=== PATIENT | female | born 1965 | race Caucasian/White ===

== ENCOUNTER 2017-01-13 20:35 | Emergency (ER) | payer OTHER ==
[~2017-01-13] VITALS: Ht 154.9 cm; Wt 46.7 kg
[~2017-01-13 20:35] MED LIST: ALBU17AE23; ALPR1T; ASPI1TAB; CTLP20T; HYDR1CAP2; NF-ESOM40C
[2017-01-13] MEDS ORDERED: PRD10T (20:49)
[2017-01-13] MEDS ORDERED: GENT5DRO30 (20:49)
[2017-01-13] MEDS ORDERED: NITR100C (20:49)
[2017-01-13] MEDS ORDERED: TOPI200T8 (20:49)
[2017-01-13] MEDS ORDERED: GABA-486 (20:49)
[2017-01-13] MEDS ORDERED: AMOX1TAB12 (20:49)
[2017-01-13] MEDS ORDERED: BSS 15 ML ONE (20:57)
[2017-01-13] MEDS ORDERED: FLUORESCEIN (FLUOR-I-STRIPS) 1 MG STRP ONE (20:57)
[2017-01-13] MEDS ORDERED: TETRACAINE 0.5% OPHTH SOLN 4 ML BTL (SINGLE DOSE ONLY) ONE (20:57)
[2017-01-13] MEDS ORDERED: CEFD300C3 PO (21:14)
[2017-01-13] MEDS ORDERED: LORA1TAB59 PO (21:14)
[2017-01-13] MEDS ORDERED: FLUT9.9S NS (21:14)
[2017-01-13] MEDS ORDERED: prednisoLONE 1% OPTH (PRED FORTE) 5 ML BTL OU SCH (21:15)
[2017-01-13] MEDS ORDERED: RX-TOBRA/DEXAMETH (TOBRADEX) OP. SUSP 2.5 ML BTL ONE (21:16)
--- NOTE | 2017-01-13 21:16 | ED EENT ---
History of Present Illness General Chief Complaint: Eye Problems Stated Complaint: VISION ISSUES Nursing Triage Note: eye pain/burning Source: patient History of Present Illness Time seen by provider: 20:49 Initial Comments C/O RIGHT EYE PAIN X 1 1/2 WEEKS STARTED OFF MILD IRRITATION, ITCHING AND WATERING THEN BEGAN TO HAVE REDNESS AND COLORED DRAINAGE AND MATTING OF EYE NOW IS STARTING TO HAVE SAME SYMPTOMS IN LEFT EYE GRANDSON HAS HAD PINKEYE--HIS SYMPTOMS HAVE RESOLVED WITH TOBRAMYCIN PT ALSO HAS HAD ONGOING ISSUES WITH A SINUS INFECTION FOR OVER A MONTH WAS TREATED WITH AUGMENTIN AND A STEROID SHOT ON 12/13 BY --NO IMPROVEMENT WAS SEEN AGAIN ON 01/[address] NAVA WAS GIVEN ANOTHER RX FOR AUGMENTIN, STEROID PILLS X 5 DAYS, AND RX FOR GENTAMICIN EYE DROPS PT STATES EYE PAIN IS GETTING WORSE--"CAN'T SEE" OUT OF HER RIGHT EYE DUE TO PAIN PT WEARS GLASSES LAST EYE EXAM WAS A FEW MONTHS AGO BY DR. MCNEILL NO IMPROVEMENT IN SINUS SYMPTOMS EITHER SHE IS NOT TAKING ANY OTHER MEDICATIONS FOR SINUSES PCP: DR. NAVA PARTICLEBOARD FACTORY WORKER: DR. MCNEILL Allergies and Home Medications Allergies Coded Allergies: Levofloxacin (Verified Allergy, Intermediate, RASH, 07/31/07) Nitrofurantoin (Unverified Allergy, Mild, 01/11/09) Sulfa (Sulfonamides) (Verified Allergy, Mild, 07/28/07) Adhesive (Verified Allergy, Unknown, 07/29/07) Iodine (Verified Allergy, Unknown, 07/29/07) Home Medications Albuterol 17 Gm Aerosol, (Reported) Amoxicillin/Potassium Clav 1 Each Tablet, (Reported) Aspirin/Acetaminophen/Caffeine 1 Each Tablet, (Reported) Cefdinir 300 Mg Capsule, 300 MG PO BID, #30 FOR INFECTION Prescribed by: INES MCBRIDE on 01/13/172113 Citalopram Hydrobromide 20 Mg Tablet, (Reported) Esomeprazole Mag Trihydrate 40 Mg Capsule., (Reported) Fluticasone Propionate 9.9 Ml [place].susp, 2 SPRAYS NS BID, #1 Prescribed by: INES MCBRIDE on 01/13/172113 Gabapentin 100 Mg Capsule, (Reported) Gentamicin Sulfate 5 Ml Drops, (Reported) Hydrocodone Bit/Acetaminophen 1 Cap Capsule, (Reported) Loratadine/Pseudoephedrine 1 Each Tab.er.12h, 1 EACH PO BID, #30 Prescribed by: INES MCBRIDE on 01/13/172113 Nitrofurantoin Macrocrystal 100 Mg Capsule, (Reported) Prednisone 10 Mg Tab, (Reported) Topiramate 200 Mg Tablet, (Reported) Review of Systems Constitutional: no symptoms reported, No fever Eyes: See HPI, Blurred Vision, Drainage, Decreased Acuity, Inflammation, Pain, Photophobia, Denies Contact Lenses, Glasses Ears: No Symptoms Reported Nose: see HPI, congestion, purulent discharge, other (SINUS PAIN ) Mouth: no symptoms reported Throat: no symptoms reported Respiratory: no symptoms reported Cardiovascular: no symptoms reported Gastrointestinal: no symptoms reported Musculoskeletal: no symptoms reported Skin: no symptoms reported Neurological: No Symptoms Reported, Denies Headache, Denies Numbness, Denies Paresthesia, Denies Tingling, Denies Weakness Hematologic/Lymphatic: No Symptoms Reported Immunological/Allergic: no symptoms reported Past Tvolorw-Oysrnm-Kpodxj Hx Patient Social History Alcohol Use: Denies Use Recreational Drug Use: No Smoking Status: Never a Smoker 2nd Hand Smoke Exposure: No Recent Foreign Travel: No Contact w/Someone Who Travel: No Recent Infectious Disease Expo: No Recent Hopitalizations: No Immunizations Up To Date Tetanus Booster (TDap): Unknown Seasonal Allergies Seasonal Allergies: No Surgeries History of Surgeries: Yes (spleenectomy, d&c) Surgeries: Appendectomy, Section, Gallbladder, Hysterectomy, Oophorectomy, Orthopedic Respiratory History of Respiratory Disorde: Yes Respiratory Disorders: Asthma Cardiovascular History of Cardiac Disorders: No Neurological History of Neurological Disord: Yes Neurological Disorders: Headaches /Migraines, Neuropathy Reproductive System : No Hx Reproductive Disorders: No Sexually Transmitted Disease: No 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 Genitourinary History of Genitourinary Disor: Yes Genitourinary Disorders: UTI-Chronic Gastrointestinal History of Gastrointestinal Di: No Musculoskeletal History of Musculoskeletal Dis: Yes Musculoskeletal Disorders: Arthritis Endocrine History of Endocrine Disorders: No HEENT History of HEENT Disorders: No Cancer History of Cancer: No Psychosocial History of Psychiatric Problem: Yes Behavioral Health Disorders: Anxiety Integumentary History of Skin or Integumenta: No Blood Transfusions History of Blood Disorders: Yes Physical Exam Vital Signs Vital Sign - Last 12Hours 01/13/17 20:49 Temp 97.3 Pulse 73 Resp 16 B/P (MAP) 116/65 (82) Pulse Ox 96 O2 Delivery Room Air General Appearance: thin, other (ANXIOUS, DRAMATIC, KEEPS EYES COVERED. REEKS OF CIGARETTES, DOES MALE WITH HER. ) Eyes: bilateral eye other (RIGHT CONJUNCTIVA VERY INFLAMED, NO DRAINAGE, NO SWELLING OR REDNESS TO LID. SLIGHT CONJUNCTIVAL INFLAMMATION ON LEFT WITH NO DRAINAGE OR LID SWELLING) Ears: bilateral ear TM normal Nose: sinus tenderness (RIGHT MAXILLARY), other (CONGESTION, CLEAR NASAL DRAINAGE) Mouth/Throat: normal mouth inspection, pharynx normal Neck: non-tender, full range of motion, supple, normal inspection, No lymphadenopathy (R), No lymphadenopathy (L) Cardiovascular: regular rate, rhythm, no murmur Respiratory: normal breath sounds Neurologic/Psychiatric: powder nipper II-XII nml as tested, no motor/sensory deficits, alert, oriented x 3 Skin: normal color, warm/dry Eye : Location: right eye Anesthesia (gtts): Tetracaine Progress/Procedure Conclusion FLUORESCEIN STAIN--NEGATIVE. NO ABRASION/DYE UPTAKE OR FOREIGN BODY NOTED. Progress/Results/Core Measures Results/Orders My Orders Orders - INES MCBRIDE DO Fluorescein Strips (Zactg-Z-Qbpmpi) (01/13/17 20:57) Tetracaine 0.5% Ophth Rochelle Sdv (Tetracai (01/13/17 20:57) Balanced Salt Irrigation Soln (Bss Irrig (01/13/17 20:57) Prednisolone 1% Ophthalmic Estella (Pred For (01/13/17 21:15) Tobra/Dexameth Ophth Ointment (Tobradex (01/14/17 09:00) Rx-Tobramycin/Dexam. (Rx-Tobradex Op Estella (01/13/17 21:16) Rx-Tobramycin/Dexam. (Rx-Tobradex Op Estella (01/13/17 21:18) Prednisolone 1% Ophthalmic Estella (Pred For (01/13/17 21:18) Medications Given in ED Current Medications Medications Dose Ordered Sig/Mor Route Start Time Stop Time Status Last Admin Dose Admin Balanced Salt Solution 15 ml STK-MED ONCE .ROUTE 01/13/17 20:57 01/13/17 20:59 DC 01/13/17 21:02 15 ML Fluorescein Sodium 1 mg STK-MED ONCE .ROUTE 01/13/17 20:57 01/13/17 20:59 DC 01/13/17 21:02 1 MG Tetracaine HCl 4 ml STK-MED ONCE .ROUTE 01/13/17 20:57 01/13/17 20:59 DC 01/13/17 21:02 4 ML Vital Signs/I&O Vital Sign - Last 12Hours 01/13/17 01/13/17 20:49 21:23 Temp 97.3 97.3 Pulse 73 73 Resp 16 16 B/P (MAP) 116/65 (82) Pulse Ox 96 96 O2 Delivery Room Air Blood Pressure Mean: 82 Progress Note : Progress Note IMMEDIATE RELIEF OF EYE PAIN AND DECREASED VISION, WITH TETRACAINE EYE EXAM--VISION 20/20 IN BOTH EYES WITH GLASSES. Departure Impression Impression: Primary Impression: Conjunctivitis Additional Impression: Sinusitis Disposition: 01 HOME, SELF-CARE Condition: Stable Departure-Patient Inst. Referrals: JORDAN NAVA MD (PCP) Primary Care Physician DELTA MCNEILL OD Patient Instructions: Conjunctivitis (Pinkeye) (DC), Sinusitis, Adult (DC), How to Use Eye Drops, How to Use Eye Ointment Add. Discharge Instructions: STOP AUGMENTIN STOP YOUR CURRENT EYE DROP START NEW EYE MEDICATION AND TAKE PRESCRIBED. CONTINUE PREDNISONE PRESCRIBED TYLENOL AND IBUPROFEN NEEDED FOR PAIN FOLLOW UP WITH DR. MCNEILL IN 2-3 DAYS FOR FURTHER CARE FOLLOW UP WITH DR. NAVA IN 4-5 DAYS FOR FURTHER CARE All discharge instructions reviewed with patient and/or family. Voiced understanding. Scripts Fluticasone Propionate (Flonase Allergy Relief) 9.9 Ml [place].susp 2 SPRAYS NS BID, #1 SPRAY Prov: INES MCBRIDE DO 01/13/17 Loratadine/Pseudoephedrine (Claritin-D 12 Hour Tablet) 1 Each Tab.er.12h 1 EACH PO BID for Congestion, #30 TAB Prov: INES MCBRIDE DO 01/13/17 Cefdinir (Cefdinir) 300 Mg Capsule 300 MG PO BID, #30 CAP FOR INFECTION Prov: INES MCBRIDE DO 01/13/17 INES MCBRIDE DO Jan 13, 2017 21:16
[2017-01-13] MEDS ORDERED: RX-TOBRA/DEXAMETH (TOBRADEX) OP. SUSP 2.5 ML BTL OP STA (21:18)
[2017-01-13] MEDS ORDERED: prednisoLONE 1% OPTH (PRED FORTE) 5 ML BTL ONE (21:18)
[2017-01-13 21:23] VITALS: BP 116/65
[2017-01-14] MEDS ORDERED: TOBRA/DEXAMETH (TOBRADEX) OPHTH OINT 3.5 GM TUBE OU SCH (09:00)
== END 2017-01-13 21:23 | disposition home or self-care (01) ==
LOC: EDUNIT# 20:35 → ER 20:37
DX: H10.9 Unspecified conjunctivitis (principal); J32.9 Chronic sinusitis, unspecified; J45.909 Unspecified asthma, uncomplicated; G43.909 Migraine, unspecified, not intractable, without status migrainosus; F41.9 Anxiety disorder, unspecified; Z87.440 Personal history of urinary (tract) infections; Z79.82 Long term (current) use of aspirin; Z90.49 Acquired absence of other specified parts of digestive tract; Z87.59 Personal history of other complications of pregnancy, childbirth and the puerperium; Z90.710 Acquired absence of both cervix and uterus
CPT/HCPCS: 99283

== ENCOUNTER → 2017-05-22 | Outpatient (CLI) | payer OTHER ==
[~2017-05-22] MED LIST changes: +AMOX1TAB12; +CEFD300C3 PO; +FLUT9.9S NS; +GABA-486; +GENT5DRO30; +LORA1TAB59 PO; +NITR100C; +PRD10T; +TOPI200T8
[2017-05-22 10:43] LABS: MEAN PLATELET VOLUME 11.4 FL (7.4-10.4); RED CELL DISTRIBUTION WIDTH 12.4 % (10.0-14.5); WHITE BLOOD COUNT 7.8 10^3/uL (4.3-11.0)
[2017-05-22 11:02] LABS: ALANINE AMINOTRANSFERASE 18 U/L (0-55); ALBUMIN 4.5 GM/DL (3.2-4.5); ALKALINE PHOSPHATASE 58 U/L (40-136); BILIRUBIN,TOTAL 0.3 MG/DL (0.1-1.0); BUN/CREATININE RATIO 26; CALCIUM 9.8 MG/DL (8.5-10.1); CARBON DIOXIDE 23 MMOL/L (21-32); CHLORIDE 107 MMOL/L (98-107); CREATININE SERUM 0.81 MG/DL (0.60-1.30); GFR ESTIMATED > 60; GLUCOSE 100 MG/DL (70-105); SODIUM 141 MMOL/L (135-145)
== END ==
LOC: LAB 10:27
PROVIDERS: ATTEND Psychiatry & Neurology Neurology
DX: G43.909 Migraine, unspecified, not intractable, without status migrainosus (principal)
CPT/HCPCS: 36415; 80053; 85027

== ENCOUNTER 2017-09-28 13:35 | Emergency (ER) | payer OTHER ==
[~2017-09-28] VITALS: Ht 154.9 cm; Wt 49.0 kg
--- OUTSIDE RECORDS SUMMARY | 2017-09-28 13:41 | XMS REPORT ---
Author Author YURIY SHAFFER Organization [facility] Address [address] [place] [address] Care Team Providers Care Supplier Development Manager Name Role Phone YURIY SHAFFER Unavailable PROBLEMS Type Condition ICD9-CM Code [id number] Code Onset Dates Condition Status SNOMED Code Problem Dysthymia F34.1 Active 48792174 Problem Arthritis M19.90 Active 0899735 Problem Bilateral carpal tunnel syndrome G56.03 Active 74968106 Problem Panic disorder with agoraphobia and panic attacks in partial remission F40.01 Active 44518217 Problem Gastroesophageal reflux disease, esophagitis presence not specified K21.9 Active 578499062 Problem Recurrent UTI N39.0 Active 389270109 ALLERGIES Substance Reaction Event Type Date Status sulfa drugs hives Drug Allergy Feb, Active Levaquin hives Drug Allergy Feb, Active Iodine rash Drug Allergy Feb, Active tape nausea Non Drug Allergy Feb, Active ENCOUNTERS Encounter Location Date Diagnosis [place] [address] [place] [address] Jul, [place] [address] [place] [id number] [place] [address] Jul, Arthritis M19.90 and Panic disorder with agoraphobia and panic attacks in partial remission F40.01 [facility] [address] [place] [id number] [place] [address]75[address] June, Arthritis M19.90 and Panic disorder with agoraphobia and panic attacks in partial remission F40.01 [place] [address] [place] [address] 6[address]75- 1639 May, [place] [address] [place] [id number] [place] [address] 74244[address] 5[address] May, Panic disorder with agoraphobia and panic attacks in partial remission F40.01 and Arthritis M19.90 [place] [address] [place] [id number] [place] [address] 83060- 4046 Apr, Panic disorder with agoraphobia and panic attacks in partial remission F40.01 and Arthritis M19.90 [facility] [address] [place] [id number] [place] [address] 85908- [address] Mar, [place] [address] 3019[address] Mar, Acute nasopharyngitis J00 [place] [address] [address] Mar, Panic disorder with agoraphobia and panic attacks in partial remission F40.01 and Arthritis M19.90 [place] [address] [place] [id number] [place] [address] 27572- 29[address] Feb, Arthritis M19.90 ; Panic disorder with agoraphobia and panic attacks in partial remission F40.01 ; Dysthymia F34.1 ; Gastroesophageal reflux disease, esophagitis presence not specified K21.9 ; Recurrent UTI N39.0 and Bilateral carpal tunnel syndrome G56.03 [place] [address] [place] [id number] [place] [address] 77484- 5359 Feb, [facility] [address] [place] [address] 46675- 5286 Feb, [facility] [address] [place] [address] Mar, Bug bite [id number] and Cellulitis L03.90 IMMUNIZATIONS No Known Immunizations SOCIAL HISTORY Never Assessed REASON FOR VISIT PMH obtained. Vane ROWE PLAN OF CARE VITAL SIGNS MEDICATIONS Medication Instructions Dosage Frequency Start Date End Date Duration Status Nexium 40 MG Orally Once a day 1 capsule 24h Active Xanax 1 MG Orally Once a day 1 tablet 24h Active Fish Oil 1200 MG Orally Once a day 1 capsule 24h Not-Taking Multivitamin Adults 50+ Not-Taking Celexa 20 mg Orally twice a day 1 tablet 12h Not-Taking Hydrocodone-Acetaminophen 7.5-325 MG Orally every 6 hrs 1 tablet as needed 6h Active Topamax 200 MG Orally Twice a day 1 tablet 12h Active Zofran 4 MG Orally PRN 1tablet Not-Taking RESULTS No Results PROCEDURES No Known procedures INSTRUCTIONS MEDICATIONS ADMINISTERED No Known Medications MEDICAL (GENERAL) HISTORY Type Description Date Medical History migraine headaches Medical History bipolar disorder Medical History acid reflux Medical History Chronic UTI Dr. Gonzalez Medical History asthma Surgical History section x 3 Surgical History orthopedic surgery Pen in right clavical, 1989 had bone removed from clavical Surgical History rectal and sphincter repair 1999 Surgical History hysterectomy 1989 Surgical History ruptured spleen 2009 Surgical History appendectomy Hospitalization History pneumonia Hospitalization History Surgery(s)/Childbirth(s)
--- OUTSIDE RECORDS SUMMARY | 2017-09-28 13:41 | XMS REPORT ---
Author Author YURIY SHAFFER Organization [facility] Address [address] [place] [address] Care Team Providers Care Wound/Ostomy Nurse Name Role Phone YURIY SHAFFER Unavailable PROBLEMS Type Condition ICD9-CM Code [id number] Code Onset Dates Condition Status SNOMED Code Problem Dysthymia F34.1 Active 63113829 Problem Arthritis M19.90 Active 8308600 Problem Bilateral carpal tunnel syndrome G56.03 Active 35883753 Problem Panic disorder with agoraphobia and panic attacks in partial remission F40.01 Active 34969718 Problem Gastroesophageal reflux disease, esophagitis presence not specified K21.9 Active 399028629 Problem Recurrent UTI N39.0 Active 253993481 ALLERGIES No Information ENCOUNTERS Encounter Location Date Diagnosis [place] [address] [place] [id number] [place] [address]61[address] Aug, [place] [address] [address] Jul, Arthritis M19.90 and Panic disorder with agoraphobia and panic attacks in partial remission F40.01 [place] [address] [place] [id number] [place] [address] 31108- 8411 June, Arthritis M19.90 and Panic disorder with agoraphobia and panic attacks in partial remission F40.01 [place] [address] [place] [id number] [place] [address] 62236- 3[address] May, [place] [address] [place] [id number] [place] [address] 26744- 0965 May, Panic disorder with agoraphobia and panic attacks in partial remission F40.01 and Arthritis M19.90 [place] [address] [place] [id number] [place] [address] 15243- 7565 Apr, Panic disorder with agoraphobia and panic attacks in partial remission F40.01 and Arthritis M19.90 [facility] [address] [place] [id number] [place] [address] 38239- 5699 Mar, [facility] [address] [place] [id number] [place] [address] 21146- 5628 Mar, Acute nasopharyngitis J00 [facility] [address] [address]- [address] Mar, Panic disorder with agoraphobia and panic attacks in partial remission F40.01 and Arthritis M19.90 [facility] [address] [address]- [address] Feb, Arthritis M19.90 ; Panic disorder with agoraphobia and panic attacks in partial remission F40.01 ; Dysthymia F34.1 ; Gastroesophageal reflux disease, esophagitis presence not specified K21.9 ; Recurrent UTI N39.0 and Bilateral carpal tunnel syndrome G56.03 [facility] [address] [place] [id number] [place] [address] 97745- 3524 Feb, [facility] [address] [place] [id number] [place] [address] 43794- 8344 Feb, [facility] [address] [place] [address]349 [address] Mar, Bug bite [id number].XXXA and Cellulitis L03.90 IMMUNIZATIONS No Known Immunizations SOCIAL HISTORY Never Assessed REASON FOR VISIT Rx request PLAN OF CARE VITAL SIGNS MEDICATIONS Unknown Medications RESULTS No Results PROCEDURES No Known procedures [...]
--- OUTSIDE RECORDS SUMMARY | 2017-09-28 13:41 | XMS REPORT ---
Author Author YURIY SHAFFER Organization [facility] Address [address] [place] [address] Care Team Providers Care Concrete Bucket Unloader Name Role Phone YURIY SHAFFER Unavailable PROBLEMS Type Condition ICD9-CM Code [id number] Code Onset Dates Condition Status SNOMED Code Problem Gastroesophageal reflux disease, esophagitis presence not specified K21.9 Active 716923591 Problem Recurrent UTI N39.0 Active 292924639 Problem Chronic pain due to trauma G89.21 Active 486858676 Problem Chronic migraine without aura without status migrainosus, not intractable G43.709 Active 224785516 Problem Dysthymia F34.1 Active 47238406 Problem Arthritis M19.90 Active 5151921 Problem Bilateral carpal tunnel syndrome G56.03 Active 52644091 Problem Panic disorder with agoraphobia and panic attacks in partial remission F40.01 Active 97166415 ALLERGIES No Information ENCOUNTERS Encounter Location Date Diagnosis [place] [address] [address] Aug, Acute non-recurrent maxillary sinusitis J01.00 [place] [address] [place] [id number] [place] [address]05- [address] Aug, Arthritis M19.90 [facility] [address] [place] [id number] [place] [address]27- [address] Aug, Arthritis M19.90 [place] [address] [place] [id number] [place] [address] 44974- 4700 Aug, [place] [address] [place] [id number] [place] [address] 68459- 2827 Aug, Chronic pain due to trauma G89.21 ; care home (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 analgesic Z79.891 ; Arthritis M19.90 ; Panic disorder with agoraphobia and panic attacks in partial remission F40.01 and Chronic migraine without aura without status migrainosus, not intractable G43.709 [place] [address] [place] [id number] [place] [address] 93556- 7739 Jul, Arthritis M19.90 and Panic disorder with agoraphobia and panic attacks in partial remission F40.01 [place] [address] 737[address]- [address] June, Arthritis M19.90 and Panic disorder with agoraphobia and panic attacks in partial remission F40.01 [place] [address] [address]- [address] May, [place] [address] 41335- [address]70 May, Panic disorder with agoraphobia and panic attacks in partial remission F40.01 and Arthritis M19.90 [place] [address] 049[address]- [address] Apr, Panic disorder with agoraphobia and panic attacks in partial remission F40.01 and Arthritis M19.90 [place] [address] [address]- [address] Mar, [place] [address] [place] [id number] [place] [address] 00385- 3157 Mar, Acute nasopharyngitis J00 [place] [address] [place] [id number] [place] [address] 82176- 7085 Mar, Panic disorder with agoraphobia and panic attacks in partial remission F40.01 and Arthritis M19.90 [place] [address] 01195- 8946 Feb, Arthritis M19.90 ; Panic disorder with agoraphobia and panic attacks in partial remission F40.01 ; Dysthymia F34.1 ; Gastroesophageal reflux disease, esophagitis presence not specified K21.9 ; Recurrent UTI N39.0 and Bilateral carpal tunnel syndrome G56.03 [facility] [address] [facility] [id number] [place] [address] Feb, [facility] [address] [facility] [id number] [address] Feb, [facility] [address] [facility] [id number] [place] [address] Mar, Bug bite [id number] and Cellulitis L03.90 IMMUNIZATIONS No Known Immunizations SOCIAL HISTORY Never Assessed REASON FOR VISIT Refill request PLAN OF CARE VITAL SIGNS MEDICATIONS Unknown Medications RESULTS No Results PROCEDURES No Known procedures INSTRUCTIONS MEDICATIONS ADMINISTERED No Known Medications MEDICAL (GENERAL) HISTORY Type Description Date Medical History migraine headaches Medical History bipolar disorder Medical History acid reflux Medical History Chronic UTI Dr. Gonzalez Medical History asthma Medical History glaucoma Surgical History section x 3 Surgical History orthopedic surgery Pen in right clavical, 1989 had bone removed from clavical Surgical History rectal and sphincter repair 1999 Surgical History hysterectomy 1989 Surgical History ruptured spleen 2009 Surgical History appendectomy Hospitalization History pneumonia Hospitalization History Surgery(s)/Childbirth(s)
--- OUTSIDE RECORDS SUMMARY | 2017-09-28 13:41 | XMS REPORT ---
Author Author YURIY SHAFFER Organization [facility] Address [address] [place] [address] Care Team Providers Care Senior Integration Developer Name Role Phone YURIY SHAFFER Unavailable PROBLEMS Type Condition ICD9-CM Code [id number]-[id number] Code Onset Dates Condition Status SNOMED Code Problem Gastroesophageal reflux disease, esophagitis presence not specified K21.9 Active 110437632 Problem Recurrent UTI N39.0 Active 237089049 Problem Chronic pain due to trauma G89.21 Active 295119535 Problem Chronic migraine without aura without status migrainosus, not intractable G43.709 Active 011914323 Problem Dysthymia F34.1 Active 27197940 Problem Arthritis M19.90 Active 5814729 Problem Bilateral carpal tunnel syndrome G56.03 Active 36818250 Problem Panic disorder with agoraphobia and panic attacks in partial remission F40.01 Active 53500707 ALLERGIES No Information ENCOUNTERS Encounter Location Date Diagnosis [place] [address] [address] Aug, Acute non-recurrent maxillary sinusitis J01.00 [place] [address] [place] [id number] [place] [address] 8[address]69- 8076 Aug, Arthritis M19.90 [facility] [address] [place] [id number] [place] [address] 38482- 9866 Aug, Arthritis M19.90 [place] [address] [place] [id number] [place] [address] 16139- 1243 Aug, [place] [address] [place] [id number] [place] [address] 70822- 5616 Aug, Chronic pain due to trauma G89.21 ; [facility]it[facility]iary (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 analgesic Z79.891 ; Arthritis M19.90 ; Panic disorder with agoraphobia and panic attacks in partial remission F40.01 and Chronic migraine without aura without status migrainosus, not intractable G43.709 [place] [address] [place] [id number] [place] [address] 24942- 1134 Jul, Arthritis M19.90 and Panic disorder with agoraphobia and panic attacks in partial remission F40.01 [place] [address] 99936- 9727 June, Arthritis M19.90 and Panic disorder with agoraphobia and panic attacks in partial remission F40.01 [place] [address] [address] May, [place] [address] 90762- 6105 May, Panic disorder with agoraphobia and panic attacks in partial remission F40.01 and Arthritis M19.90 [place] [address] 88266- 4877 Apr, Panic disorder with agoraphobia and panic attacks in partial remission F40.01 and Arthritis M19.90 [place] [address] 93867- 5467 Mar, [place] [address] [place] [id number] [place] [address] 28783- 3595 Mar, Acute nasopharyngitis J00 [place] [address] [place] [id number] [place] [address] 23746- 7888 Mar, Panic disorder with agoraphobia and panic attacks in partial remission F40.01 and Arthritis M19.90 [place] [address] 68[address]- 8865 Feb, Arthritis M19.90 ; Panic disorder with agoraphobia and panic attacks in partial remission F40.01 ; Dysthymia F34.1 ; Gastroesophageal reflux disease, esophagitis presence not specified K21.9 ; Recurrent UTI N39.0 and Bilateral carpal tunnel syndrome G56.03 [facility] [address] [facility] [id number] [place] [address] Feb, [facility] [address] [facility] [id number] [place] [address] Feb, [facility] [address] [facility] [id number] [place] [address] Mar, Bug bite W57.XXXA and Cellulitis L03.90 IMMUNIZATIONS No Known Immunizations SOCIAL HISTORY Never Assessed REASON FOR VISIT Hydrocodone and Ambien- 05/23 PLAN OF CARE VITAL SIGNS MEDICATIONS Medication Instructions Dosage Frequency Start Date End Date Duration Status Hydrocodone-Acetaminophen 7.5-325 MG Orally 3 times a day 1 tablet as needed 8h May, 28 days Active Xanax 1 MG Orally Once a day 1 tablet 24h 28 days Active RESULTS No Results PROCEDURES No Known procedures [...]
--- OUTSIDE RECORDS SUMMARY | 2017-09-28 13:41 | XMS REPORT ---
Author Author YURIY SHAFFER Organization [facility] Address [address] [place] [address] Care Team Providers Care Doctor Of Naprapathy Name Role Phone YURIY SHAFFER Unavailable PROBLEMS Type Condition ICD9-CM Code JSM67-MU Code Onset Dates Condition Status SNOMED Code Problem Dysthymia F34.1 Active 47839009 Problem Arthritis M19.90 Active 6401500 Problem Bilateral carpal tunnel syndrome G56.03 Active 93849071 Problem Panic disorder with agoraphobia and panic attacks in partial remission F40.01 Active 95615282 Problem Gastroesophageal reflux disease, esophagitis presence not specified K21.9 Active 964701712 Problem Recurrent UTI N39.0 Active 669866225 ALLERGIES No Information ENCOUNTERS Encounter Location Date Diagnosis [place] [address] [place] [id number] [place] [address] 13060- 8376 Jul, [place] [address] [address] Jul, Arthritis M19.90 and Panic disorder with agoraphobia and panic attacks in partial remission F40.01 [place] [address] [place] [id number] [place] [address] 46258- 3174 June, Arthritis M19.90 and Panic disorder with agoraphobia and panic attacks in partial remission F40.01 [place] [address] [place] [id number] [place] [address] 58786- 9977 May, [place] [address] [place] [id number] [place] [address] 47457- 8088 May, Panic disorder with agoraphobia and panic attacks in partial remission F40.01 and Arthritis M19.90 [place] [address] [place] [id number] [place] [address] 99769- 6357 Apr, Panic disorder with agoraphobia and panic attacks in partial remission F40.01 and Arthritis M19.90 [facility] [address] [place] [id number] [place] [address] 96479- 5271 Mar, [place] [address] [place] [id number] [place] [address] 47884- 6903 Mar, Acute nasopharyngitis J00 [place] [address] 24039- 8005 Mar, Panic disorder with agoraphobia and panic attacks in partial remission F40.01 and Arthritis M19.90 [place] [address] 44997- 9702 Feb, Arthritis M19.90 ; Panic disorder with agoraphobia and panic attacks in partial remission F40.01 ; Dysthymia F34.1 ; Gastroesophageal reflux disease, esophagitis presence not specified K21.9 ; Recurrent UTI N39.0 and Bilateral carpal tunnel syndrome G56.03 [facility] [address] [place] [id number] [place] [address] 58786- 9310 Feb, [facility] [address] [place] [id number] [place] [address] 74526- 6388 Feb, [facility] [address] [place] [address]980 -6075 Mar, Bug bite W57.XXXA and Cellulitis L03.90 IMMUNIZATIONS No Known Immunizations SOCIAL HISTORY Never Assessed REASON FOR VISIT Refill request PLAN OF CARE VITAL SIGNS MEDICATIONS Medication Instructions Dosage Frequency Start Date End Date Duration Status Celexa 20 mg Orally Once a day 1 tablet 24h 30 days Active RESULTS No Results PROCEDURES No [...]
--- OUTSIDE RECORDS SUMMARY | 2017-09-28 13:41 | XMS REPORT ---
Author Author YURIY SHAFFER [facility] Address [address] [place] [address] Care Team Providers Care Agricultural And Forestry Supervisor Name Role Phone YURIY SHAFFER Unavailable PROBLEMS Type Condition ICD9-CM Code WMC67-QL Code Onset Dates Condition Status SNOMED Code Problem Gastroesophageal reflux disease, esophagitis presence not specified K21.9 Active 938382657 Problem Recurrent UTI N39.0 Active 464275325 Problem Chronic pain due to trauma G89.21 Active 406282575 Problem Chronic migraine without aura without status migrainosus, not intractable G43.709 Active 878146739 Problem Dysthymia F34.1 Active 89284055 Problem Arthritis M19.90 Active 3069684 Problem Bilateral carpal tunnel syndrome G56.03 Active 23865676 Problem Panic disorder with agoraphobia and panic attacks in partial remission F40.01 Active 86263844 ALLERGIES Substance Reaction Event Type Date Status sulfa drugs hives Drug Allergy Mar, Active Levaquin hives Drug Allergy Mar, Active Iodine rash Drug Allergy Mar, Active tape nausea Non Drug Allergy Mar, Active ENCOUNTERS Encounter Location Date Diagnosis [address] [place] [address] 59681- 7483 Aug, Chronic pain due to trauma G89.21 ; [facility]iary (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 analgesic Z79.891 ; Arthritis M19.90 ; Panic disorder with agoraphobia and panic attacks in partial remission F40.01 and Chronic migraine without aura without status migrainosus, not intractable G43.709 [facility] [address] [place] [id number] [address] Jul, Arthritis M19.90 and Panic disorder with agoraphobia and panic attacks in partial remission F40.01 [place] [address] [address] June, Arthritis M19.90 and Panic disorder with agoraphobia and panic attacks in partial remission F40.01 [facility] [address] [place] [address] 35700- 2987 May, [facility] [address] [place] [address] 49380- 3354 May, Panic disorder with agoraphobia and panic attacks in partial remission F40.[address] [facility] [address] [place] [address] 56028- 9916 Apr, Panic disorder with agoraphobia and panic attacks in partial remission F40.[address] [facility] [address] [place] [id number] [place] [address] 38581- 1039 Mar, [place] [address] [place] [id number] [place] [address] 60125- 3780 Mar, Acute nasopharyngitis J00 [facility] [address] [place] [id number] [place] [address] 75701- 7634 Mar, Panic disorder with agoraphobia and panic attacks in partial remission F40.[address] [facility] [address] [place] [address] 82477- 6013 Feb, Arthritis M19.90 ; Panic disorder with agoraphobia and panic attacks in partial remission F40.01 ; Dysthymia F34.1 ; Gastroesophageal reflux disease, esophagitis presence not specified K21.9 ; Recurrent UTI N39.0 and Bilateral carpal tunnel syndrome G56.03 [place] [address] [place] [address] 51191- 3707 Feb, [facility] [address] [place] [address] 46825- 7782 Feb, [facility] [address] [place] [address] 46666 -6798 Mar, Bug bite W57.XXXA and Cellulitis L03.90 IMMUNIZATIONS No Known Immunizations SOCIAL HISTORY Never Assessed REASON FOR VISIT flu symptoms- lost her voice, cough, since - Mile Henson RN PLAN OF CARE Activity Details Follow Up 3 Months Reason: VITAL SIGNS Height 61 in 2017-04-08 Weight 106 lbs 2017-04-08 Temperature 98.2 degrees Fahrenheit 2017-04-08 Heart Rate 78 bpm 2017-04-08 Respiratory Rate 18 2017-04-08 BMI 20.03 kg/m2 2017-04-08 Blood pressure systolic 108 mmHg 2017-04-08 Blood pressure diastolic 72 mmHg 2017-04-08 MEDICATIONS Medication Instructions Dosage Frequency Start Date End Date Duration Status Topamax 200 MG Orally Twice a day 1 tablet 12h Active Nexium 40 MG Orally Once a day 1 capsule 24h Active SudoGest 30 MG Orally every 6 hrs 1 tablet as needed 6h Mar, 05 days Active Xanax 1 MG Orally Once a day 1 tablet 24h 28 days Active Carafate 1 GM Orally Twice a day 1 tablet 12h Active Celexa 20 mg Orally twice a day 1 tablet 12h Active Zofran 4 MG Orally PRN 1tablet Active Hydrocodone-Acetaminophen 7.5-325 MG Orally 3 times a day 1 tablet as needed 8h Mar, 28 days Active RESULTS No Results PROCEDURES [...]
--- OUTSIDE RECORDS SUMMARY | 2017-09-28 13:41 | XMS REPORT ---
Author Author YURIY SHAFFER Organization [facility] Address [address] [place] [address] Care Team Providers Care Art Conservator Name Role Phone YURIY SHAFFER Unavailable PROBLEMS Type Condition ICD9-CM Code HNV81-VH Code Onset Dates Condition Status SNOMED Code Problem Gastroesophageal reflux disease, esophagitis presence not specified K21.9 Active 915680779 Problem Recurrent UTI N39.0 Active 530762461 Problem Chronic pain due to trauma G89.21 Active 800699113 Problem Chronic migraine without aura without status migrainosus, not intractable G43.709 Active 221510876 Problem Dysthymia F34.1 Active 76595124 Problem Arthritis M19.90 Active 1861530 Problem Bilateral carpal tunnel syndrome G56.03 Active 20906779 Problem Panic disorder with agoraphobia and panic attacks in partial remission F40.01 Active 23987936 ALLERGIES No Information ENCOUNTERS Encounter Location Date Diagnosis [facility] [address] [place] [id number] [place] [address] 01107- 2214 Aug, Chronic pain due to trauma G89.21 ; [employer] (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 analgesic Z79.891 ; Arthritis M19.90 ; Panic disorder with agoraphobia and panic attacks in partial remission F40.01 and Chronic migraine without aura without status migrainosus, not intractable G43.709 [facility] [address] [place] [address] 69767- 2760 Jul, Arthritis M19.90 and Panic disorder with agoraphobia and panic attacks in partial remission F40.01 [facility] [address] [place] [address] 14500- 0325 June, Arthritis M19.90 and Panic disorder with agoraphobia and panic attacks in partial remission F40.01 [facility] [address] [place] [id number] [address] May, [facility] [address] [place] [id number] [place] [address] 33739- 0099 May, Panic disorder with agoraphobia and panic attacks in partial remission F40.01 and Arthritis M19.90 [place] [address] [place] [id number] [place] [address] 09907- 9686 Apr, Panic disorder with agoraphobia and panic attacks in partial remission F40.01 and Arthritis M19.90 [facility] [address] [place] [id number] [place] [address] 58772- 8269 Mar, [place] [address] [place] [id number] [place] [address] 31927- 2796 Mar, Acute nasopharyngitis J00 [place] [address] [place] [id number] [place] [address] 96634- 3490 Mar, Panic disorder with agoraphobia and panic attacks in partial remission F40.01 and Arthritis M19.90 [facility] [address] [place] [id number] [place] [address] 66745- 0553 Feb, Arthritis M19.90 ; Panic disorder with agoraphobia and panic attacks in partial remission F40.01 ; Dysthymia F34.1 ; Gastroesophageal reflux disease, esophagitis presence not specified K21.9 ; Recurrent UTI N39.0 and Bilateral carpal tunnel syndrome G56.03 [place] [address] [place] [address] 90587- 8950 Feb, [facility] [address] [place] [id number] [place] [address] 16975- 6575 Feb, [facility] [address] [place] [id number] [place] [address] 15035 -7168 Mar, Bug bite W57.XXXA and Cellulitis L03.90 IMMUNIZATIONS No Known Immunizations SOCIAL HISTORY Never Assessed REASON FOR VISIT Hydrocodone and alprazolam- 04/22 PLAN OF CARE VITAL SIGNS MEDICATIONS Medication Instructions Dosage Frequency Start Date End Date Duration Status Hydrocodone-Acetaminophen 7.5-325 MG Orally 3 times a day 1 tablet as needed 8h 12 Apr, 2017 28 days Active Xanax 1 MG Orally [...]
--- OUTSIDE RECORDS SUMMARY | 2017-09-28 13:41 | XMS REPORT ---
Author Author YURIY SHAFFER Organization [facility] Address [address] [place] [address] Care Team Providers Care Mate Fourth Name Role Phone YURIY SHAFFER Unavailable PROBLEMS Type Condition ICD9-CM Code NNH76-AF Code Onset Dates Condition Status SNOMED Code Problem Gastroesophageal reflux disease, esophagitis presence not specified K21.9 Active 533909743 Problem Recurrent UTI N39.0 Active 066880279 Problem Chronic pain due to trauma G89.21 Active 577973498 Problem Chronic migraine without aura without status migrainosus, not intractable G43.709 Active 731507599 Problem Dysthymia F34.1 Active 46772876 Problem Arthritis M19.90 Active 4146178 Problem Bilateral carpal tunnel syndrome G56.03 Active 20922292 Problem Panic disorder with agoraphobia and panic attacks in partial remission F40.01 Active 39633566 ALLERGIES No Information ENCOUNTERS Encounter Location Date Diagnosis [place] [address] [address]38- [address]173 Aug, Acute non-recurrent maxillary sinusitis J01.00 [place] [address] [place] [id number] [place] [address] 56106- 9149 Aug, [address] M19.90 [facility] [address] [place] [id number] [place] [address] 85181- 8951 Aug, Arthritis M19.90 [place] [address] [place] [id number] [place] [address] 89630- 1202 Aug, [place] [address] [place] [id number] [place] [address] 48919- 2226 Aug, Chronic pain due to trauma G89.21 ; [facility] (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 analgesic Z79.891 ; Arthritis M19.90 ; Panic disorder with agoraphobia and panic attacks in partial remission F40.01 and Chronic migraine without aura without status migrainosus, not intractable G43.709 [place] [address] [place] [id number] [place] [address] 82452- 0641 Jul, Arthritis M19.90 and Panic disorder with agoraphobia and panic attacks in partial remission F40.01 [place] [address] 08049- 7349 June, Arthritis M19.90 and Panic disorder with agoraphobia and panic attacks in partial remission F40.01 [place] [address] 40528- 9964 May, [place] [address] 19125- 2987 May, Panic disorder with agoraphobia and panic attacks in partial remission F40.01 and Arthritis M19.90 [place] [address] 08017- 1321 Apr, Panic disorder with agoraphobia and panic attacks in partial remission F40.01 and Arthritis M19.90 [place] [address] 82694- 4254 Mar, [place] [address] [place] [id number] [place] [address] 84426- 7235 Mar, Acute nasopharyngitis J00 [place] [address] [place] [id number] [place] [address] 63729- 7014 Mar, Panic disorder with agoraphobia and panic attacks in partial remission F40.01 and Arthritis M19.90 [place] [address] [address]- 1937 Feb, Arthritis M19.90 ; Panic disorder with agoraphobia and panic attacks in partial remission F40.01 ; Dysthymia F34.1 ; Gastroesophageal reflux disease, esophagitis presence not specified K21.9 ; Recurrent UTI N39.0 and Bilateral carpal tunnel syndrome G56.03 [facility] [address] [facility] [id number] [address] Feb, [facility] [address] [facility] [id number] [address] Feb, [facility] [address] [facility] [id number] [place] [address] Mar, Bug bite W57.XXXA and Cellulitis L03.90 IMMUNIZATIONS No Known Immunizations SOCIAL HISTORY Never Assessed REASON FOR VISIT Hydrocodone and Alprazolam 06/24 PLAN OF CARE VITAL SIGNS MEDICATIONS Medication Instructions Dosage Frequency Start Date End Date Duration Status Xanax 1 MG Orally Once a day 1 tablet 24h 28 days Active Hydrocodone-Acetaminophen 7.5-325 MG Orally 3 times a day 1 tablet as needed 8h June, 28 days Active RESULTS No Results PROCEDURES [...]
--- OUTSIDE RECORDS SUMMARY | 2017-09-28 13:41 | XMS REPORT ---
Author Author YURIY SHAFFER Organization [facility] Address [address] [place] [address] Care Team Providers Care Nurse Executive Name Role Phone YURIY SHAFFER Unavailable PROBLEMS Type Condition ICD9-CM Code MKN93-CY Code Onset Dates Condition Status SNOMED Code Problem Dysthymia F34.1 Active 32562504 Problem Arthritis M19.90 Active 9508402 Problem Bilateral carpal tunnel syndrome G56.03 Active 77817254 Problem Panic disorder with agoraphobia and panic attacks in partial remission F40.01 Active 87168017 Problem Gastroesophageal reflux disease, esophagitis presence not specified K21.9 Active 833523177 Problem Recurrent UTI N39.0 Active [id number] ALLERGIES Substance Reaction Event Type Date Status sulfa drugs hives Drug Allergy Feb, Active Levaquin hives Drug Allergy Feb, Active Iodine rash Drug Allergy Feb, Active tape nausea Non Drug Allergy Feb, Active ENCOUNTERS Encounter Location Date Diagnosis [place] [id number] [place] [phone] Jul, [place] [address] [place] [id number] [place] [phone] Jul, Arthritis M19.90 and Panic disorder with agoraphobia and panic attacks in partial remission F40.01 [facility] [address] [place] [id number] [place] [phone] June, Arthritis M19.90 and Panic disorder with agoraphobia and panic attacks in partial remission F40.01 [place] [id number] [place] [address] [phone] May, [place] [address] [place] [id number] [place] [phone] May, Panic disorder with agoraphobia and panic attacks in partial remission F40.01 and Arthritis M19.90 [place] [address] [place] [id number] [place] [address] [phone] Apr, Panic disorder with agoraphobia and panic attacks in partial remission F40.01 and Arthritis M19.90 [facility] [address] [place] [id number] [place] [phone] Mar, [place] [address] [phone] Mar, Acute nasopharyngitis J00 [place] [address] [phone] Mar, Panic disorder with agoraphobia and panic attacks in partial remission F40.01 and Arthritis M19.90 [place] [address] [address] Feb, Arthritis M19.90 ; Panic disorder with agoraphobia and panic attacks in partial remission F40.01 ; Dysthymia F34.1 ; Gastroesophageal reflux disease, esophagitis presence not specified K21.9 ; Recurrent UTI N39.0 and Bilateral carpal tunnel syndrome G56.03 [place] [address] [place] [id number] [place] [phone] Feb, [facility] [address] [place] [address] [id number] [place] [address] [phone] Feb, [facility] [address] [place] [id number] [place] [address] [phone] Mar, Bug bite W57.XXXA and Cellulitis L03.90 IMMUNIZATIONS No Known Immunizations SOCIAL HISTORY Never Assessed REASON FOR VISIT Establish Care - came from Dr Mckeon-Guevara Henson RN PLAN OF CARE Activity Details Follow Up 3 Months Reason: VITAL SIGNS Height 61 in 2017-02-14 Weight 106 lbs 2017-02-14 Temperature 97.8 degrees Fahrenheit 2017-02-14 Heart Rate 82 bpm 2017-02-14 Respiratory Rate 18 2017-02-14 BMI 20.03 kg/m2 2017-02-14 Blood pressure systolic 102 mmHg 2017-02-14 Blood pressure diastolic 78 mmHg 2017-02-14 MEDICATIONS Medication Instructions Dosage Frequency Start Date End Date Duration Status Nexium 40 MG Orally Once a day 1 capsule 24h Active Topamax 200 MG Orally Twice a day 1 tablet 12h Active Carafate 1 GM Orally Twice a day 1 tablet 12h Active Celexa 20 mg Orally twice a day 1 tablet 12h Active Xanax 1 MG Orally Once a day 1 tablet 24h 28 days Active Hydrocodone-Acetaminophen 7.5-325 MG Orally 3 times a day 1 tablet as needed 8h Feb, Mar, 28 days Active Zofran 4 MG Orally PRN 1tablet Active RESULTS Name Result Date Reference Range URINE DRUG SCREEN (IN HOUSE) 2017-02-14 Lot # [id number] Exp date 10/2018 Control + COCAINE Negative AMPH Negative MTD Negative THC Negative OPIATE Negative BENZO Negative PCP Negative BAR Negative OXY Negative MAMP Negative TCA Negative BUP Negative MDMA Negative PROCEDURES Procedure Date Ordered Result Body Site DRUG TEST PRSMV DIR OPT OBS Feb 14, 2017 INSTRUCTIONS MEDICATIONS ADMINISTERED No Known Medications MEDICAL [...]
--- OUTSIDE RECORDS SUMMARY | 2017-09-28 13:42 | XMS REPORT | Continuity of Care Document ---
Author Author [facility] Organization [facility] Address Unknown Phone Unavailable Allergies Active Description Code Type Severity Reaction Onset Reported/Identified Relationship to Patient Clinical Status Yes Sulfa (Sulfonamide Antibiotics) [id number] Drug Allergy Mild N/A 2007 Yes adhesive [id number] Drug Allergy Unknown N/A 07/29/2007 Yes iodine [id number] Drug Allergy Unknown N/A 07/29/2007 Yes levofloxacin [id number] Drug Allergy Moderate RASH 07/31/2007 Yes nitrofurantoin [id number] Drug Allergy Mild N/A 01/11/2009 Medications There is no data. Problems Date Dx Coded Attending Type Code Diagnosis Diagnosed By 01/12/2009 Ot 598.9 URETHRAL STRICTURE NOS 01/12/2009 Ot 599.0 URIN TRACT INFECTION NOS 11/08/2014 KALLIE MUNSON STAKE DRIVER Ot V76.12 11/12/2014 KALLIE MUNSON STAKE DRIVER Ot V76.12 05/13/2015 KALLIE MUNSON STAKE DRIVER Ot V76.12 05/20/2015 KALLIE MUNSON STAKE DRIVER Ot V76.12 01/13/2017 KALLIE MUNSONP Ot V76.12 OT SCREEN MAMMO-MALIGN NEOPLASM OF DAVID 01/13/2017 INES MCBRIDE DO Ot F41.9 ANXIETY DISORDER, UNSPECIFIED 01/13/2017 INES MCBRIDE DO Ot G43.909 MIGRAINE, UNSP, NOT INTRACTABLE, WITHOUT 01/13/2017 INES MCBRIDE DO Ot H10.9 UNSPECIFIED CONJUNCTIVITIS 01/13/2017 INES MCBRIDE DO Ot H57.11 OCULAR PAIN, RIGHT EYE 01/13/2017 INES MCBRIDE DO Ot J32.9 CHRONIC SINUSITIS, UNSPECIFIED 01/13/2017 INES MCBRIDE DO Ot J45.909 UNSPECIFIED ASTHMA, UNCOMPLICATED 01/13/2017 INES MCBRIDE DO Ot Z79.82 [facility] (CURRENT) USE OF ASPIRIN 01/13/2017 RAE INES PRINCE Ot Z87.440 PERSONAL HISTORY OF URINARY (TRACT) INFE 01/13/2017 INES MCBRIDE DO Ot Z87.59 PERSONAL HISTORY OF COMP OF PREG, CHLDBR 01/13/2017 RAE INES PRINCE Ot Z90.49 ACQUIRED ABSENCE OF OTHER SPECIFIED PART 01/13/2017 RAE INES [place] Ot Z90.710 ACQUIRED ABSENCE OF BOTH CERVIX AND UTER 01/19/2017 [place] INES [place] Ot F41.9 ANXIETY DISORDER, UNSPECIFIED 01/19/2017 [place] INES [place] Ot G43.909 MIGRAINE, UNSP, NOT INTRACTABLE, WITHOUT 01/19/2017 RAE PRINCE INES [place] Ot H10.9 UNSPECIFIED CONJUNCTIVITIS 01/19/2017 RAE INES [place] Ot H57.11 OCULAR PAIN, RIGHT EYE 01/19/2017 RAE INES [place] Ot J32.9 CHRONIC SINUSITIS, UNSPECIFIED 01/19/2017 RAE INES [place] Ot J45.909 UNSPECIFIED ASTHMA, UNCOMPLICATED 01/19/2017 RAE INES [place] Ot 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 Results Test Result Range Automated blood complete blood count (hemogram) panel - 05/22/17 10:36 Blood leukocytes automated count (number/volume) 7.8 10*3/uL 4.3-11.0 Blood erythrocytes automated count (number/volume) 4.00 10*6/uL 4.35-5.85 Venous blood hemoglobin measurement (mass/volume) 13.0 g/dL 11.5-16.0 Blood hematocrit (volume fraction) 39 % 35-52 Automated erythrocyte mean corpuscular volume 97 [foz_us] 80-99 Automated erythrocyte mean corpuscular hemoglobin (mass per erythrocyte) 33 pg 25-34 Automated erythrocyte mean corpuscular hemoglobin concentration measurement ( mass/volume) 34 g/dL 32-36 Automated erythrocyte distribution width ratio 12.4 % 10.0-14.5 Automated blood platelet count (count/volume) 315 10*3/uL 130-400 Automated blood platelet mean volume measurement 11.4 [foz_us] 7.4-10.4 Comprehensive metabolic panel - 05/22/17 10:36 Serum or plasma sodium measurement (moles/volume) 141 mmol/L 135-145 Serum or plasma potassium measurement (moles/volume) 4.0 mmol/L 3.6-5.0 Serum or plasma chloride measurement (moles/volume) 107 mmol/L 98-107 Carbon dioxide 23 mmol/L 21-32 Serum or plasma anion gap determination (moles/volume) 11 mmol/L 5-14 Serum or plasma urea nitrogen measurement (mass/volume) 21 mg/dL 7-18 Serum or plasma creatinine measurement (mass/volume) 0.81 mg/dL 0.60-1.30 Serum or plasma urea nitrogen/creatinine mass ratio 26 NRG Serum or plasma creatinine measurement with calculation of estimated glomerular filtration rate > NRG Serum or plasma glucose measurement (mass/volume) 100 mg/dL 70-105 Serum or plasma calcium measurement (mass/volume) 9.8 mg/dL 8.5-10.1 Serum or plasma total bilirubin measurement (mass/volume) 0.3 mg/dL 0.1-1.0 Serum or plasma alkaline phosphatase measurement (enzymatic activity/volume) 58 U/L 40-136 Serum or plasma aspartate aminotransferase measurement (enzymatic activity/ volume) 19 U/L 5-34 Serum or plasma alanine aminotransferase measurement (enzymatic activity/volume ) 18 U/L 0-55 Serum or plasma protein measurement (mass/volume) 8.0 g/dL 6.4-8.2 Serum or plasma albumin measurement (mass/volume) 4.5 g/dL 3.2-4.5 PDM - 09 PANEL (PROFILE 1) - 08/19/17 11:02 Creatinine 69.5 mg/dL > or=20.0 pH 5.31 4.5 - 9.0 Oxidant NEGATIVE mcg/mL <200 Amphetamines NEGATIVE ng/mL <500 medMATCH Amphetamines CONSISTENT NRG Benzodiazepines POSITIVE ng/mL <100 Marijuana Metabolite NEGATIVE ng/mL <20 medMATCH Marijuana Metab CONSISTENT NRG Cocaine Metabolite NEGATIVE ng/mL <150 medMATCH Cocaine Metab CONSISTENT NRG Opiates POSITIVE ng/mL <100 Oxycodone NEGATIVE ng/mL <100 medMATCH Oxycodone CONSISTENT NRG COMMENT NRG Alphahydroxyalprazolam 235 ng/mL <25 medMATCH aOH alprazolam INCONSISTENT NRG Alphahydroxymidazolam NEGATIVE ng/mL <50 medMATCH aOH midazolam CONSISTENT NRG Alphahydroxytriazolam NEGATIVE ng/mL <50 medMATCH aOH triazolam CONSISTENT NRG Aminoclonazepam NEGATIVE ng/mL <25 medMATCH Aminoclonazepam CONSISTENT NRG Hydroxyethylflurazepam NEGATIVE ng/mL <50 medMATCH OH,Et flurazepam CONSISTENT NRG Lorazepam NEGATIVE ng/mL <50 medMATCH Lorazepam CONSISTENT NRG Nordiazepam NEGATIVE ng/mL <50 medMATCH Nordiazepam CONSISTENT NRG Oxazepam NEGATIVE ng/mL <50 medMATCH Oxazepam CONSISTENT NRG Temazepam NEGATIVE ng/mL <50 medMATCH Temazepam CONSISTENT NRG Codeine NEGATIVE ng/mL <50 medMATCH Codeine CONSISTENT NRG Hydrocodone 114 ng/mL <50 medMATCH Hydrocodone INCONSISTENT NRG Hydromorphone 90 ng/mL <50 medMATCH Hydromorphone INCONSISTENT NRG Morphine NEGATIVE ng/mL <50 medMATCH Morphine CONSISTENT NRG Norhydrocodone 954 ng/mL <50 medMATCH Norhydrocodone INCONSISTENT NRG Barbiturates NEGATIVE ng/mL <300 medMATCH Barbiturates CONSISTENT NRG Methadone Metabolite NEGATIVE ng/mL <100 medMATCH Methadone Metab CONSISTENT NRG Phencyclidine NEGATIVE ng/mL <25 medMATCH Phencyclidine CONSISTENT NRG Encounters ACCT No. Visit Date/Time Discharge Status Pt. Type Provider Facility Loc./Unit Complaint [id number] 05/22/2017 10:27:00 05/22/2017 23:59:59 CLS Outpatient KRYSTINA MARTINEZ, KEVIN [place] [facility] LAB MIGRAINE [id number] 01/13/2017 20:37:00 01/13/2017 21:23:00 DIS Emergency RAE INES [facility] ER VISION ISSUES [id number] 10/29/2014 07:09:00 10/29/2014 23:59:59 CLS Outpatient KALLIE MUNSON [facility] RAD SCREENING [id number] 10/29/2014 07:08:00 Document Registration [id number] 10/29/2014 07:09:49 ACT Document Registration [id number] 09/05/2017 11:40:00 09/05/2017 23:59:59 CLS Outpatient EDMUND MARTINEZ, YURIY [facility] [id number] 08/19/2017 10:00:00 Document Registration
--- NOTE | 2017-09-28 14:14 | ED Upper Extremity ---
General Chief Complaint: Trauma-Non Activation Stated Complaint: FELL OFF BRIDGE/PAIN Nursing Triage Note: PT ABMULATES TO ROOM 3 FROM TRIAGE, PT STATES FELL OFF BRIDGE, PT CO OF L SHOULDER AND ARM PAIN. PT RATES PAIN 8/10 C-COLLAR APPLIED. SON WHO WAS AT SCENE DENIES LOC FOR PT Nursing Sepsis Screen: No Definite Risk Source: patient, family Exam Limitations: no limitations History of Present Illness Date Seen by Provider: Sep 28, 2017 Time Seen by Provider: 14:10 Initial Comments This 52-year-old white female presents after she inadvertently fell 6 feet off a bridge sustaining injury to her left shoulder and left hip. The patient has been able to weight-bear she is complaining of sharp pain in the left shoulder and left hip made worse with movement. She denies head injury, loss of consciousness, neck injury or pain, pain in the remainder of her back. She has no history of trauma to the chest or abdomen. The patient is having sharp moderately severe pain in both left shoulder and hip made worse with movement. Location Injury Occurred: [facility] Allergies and Home Medications Allergies Coded Allergies: levofloxacin (Verified Allergy, Intermediate, RASH, 07/31/07) Sulfa (Sulfonamide Antibiotics) (Verified Allergy, Mild, 07/28/07) nitrofurantoin (Unverified Allergy, Mild, 01/11/09) adhesive (Verified Allergy, Unknown, 07/29/07) iodine (Verified Allergy, Unknown, 07/29/07) Home Medications Cefdinir 300 Mg Capsule, 300 MG PO BID FOR INFECTION Prescribed by: INES MCBRIDE on 01/13/172113 Fluticasone Propionate 9.9 Ml Oldhams.susp, 2 SPRAYS NS BID Prescribed by: INES MCBRIDE on 01/13/172113 Loratadine/Pseudoephedrine 1 Each Tab.er.12h, 1 EACH PO BID Prescribed by: INES MCBRIDE on 01/13/172113 Patient Home Medication List Home Medication List Reviewed: Yes Constitutional: No chills EENTM: No ear pain, No vision loss Respiratory: No cough Cardiovascular: No chest pain Gastrointestinal: No abdominal pain, No diarrhea, No vomiting Genitourinary: No dysuria, No frequency Musculoskeletal: see HPI; No back pain; joint pain (left shoulder and hip.) Skin: no symptoms reported Psychiatric/Neurological: No Symptoms Reported Past Iuawbvd-Rirveh-Fwbgbd Hx Past Med/Social Hx: Reviewed Nursing Past Med/Soc Hx Patient Social History Alcohol Use: Denies Use Recreational Drug Use: No Smoking Status: Never a Smoker 2nd Hand Smoke Exposure: No Recent Foreign Travel: No Contact w/Someone Who Travel: No Recent Infectious Disease Expo: No Recent Hopitalizations: No Physical Abuse: No Sexual Abuse: No Immunizations Up To Date Tetanus Booster (TDap): Unknown Seasonal Allergies Seasonal Allergies: No Past Medical History Surgeries: Yes (spleenectomy, d&c) Appendectomy, Section, Gallbladder, Hysterectomy, Oophorectomy, Orthopedic Respiratory: Yes Asthma Cardiac: No Neurological: Yes Headaches /Migraines, Neuropathy 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 0oz. 48.235615sa; BMI Method:Stated General Appearance: WD/WN, mild distress HEENT: normal ENT inspection Neck: full range of motion, supple Cardiovascular: regular rate, rhythm, no edema, no murmur Respiratory: lungs clear, normal breath sounds, no respiratory distress Gastrointestinal: normal bowel sounds, non tender, soft Back: normal inspection, no vertebral tenderness Shoulder: pain (diffusely over the left shoulder and proximal humerus) Elbow/Forearm: normal inspection, non-tender, no evidence of injury Wrist: Yes normal inspection, Yes non-tender, Yes no evidence of injury Hand: normal inspection, non-tender, no evidence of injury Neurologic/Psychiatric: no motor/sensory deficits, alert, normal mood/affect Skin: normal color, warm/dry Progress/Results/Core Measures Results/Orders My Orders Orders - PO PERSAUD MD Humerus, Left, 2 Views (09/28/17 13:52) Shoulder, Left, 3 Views (09/28/17 13:52) Pelvis With Left Hip 2-3 Views (09/28/17 ) Fentanyl Injection (Sublimaze Injection (09/28/17 14:15) Cervical Spine 3 Views Or Less (09/28/17 14:55) Medications Given in ED Current Medications Medications Dose Ordered Sig/Mor Route Start Time Stop Time Status Last Admin Dose Admin Fentanyl Citrate 50 mcg ONCE ONCE IM 09/28/17 14:15 09/28/17 14:16 DC 09/28/17 14:26 50 MCG Vital Signs/I&O 09/28/17 13:35 Temp 97.2 Pulse 63 Resp 18 B/P (MAP) 123/70 (87) Pulse Ox 97 Blood Pressure Mean: 87 Progress Progress Note : Time: 14:57 Progress Note X-rays of the patient's left shoulder humerus and hip demonstrated a probable fracture of the greater trochanter of the left shoulder. The patient subsequently complained of increasing neck pain and cervical spine films were obtained. Patient was given 50 g of fentanyl IM for her discomfort. 15:35 The patient's cervical spine films on my read failed to demonstrate evidence of fracture. I discussed findings with patient and family. Place patient on hydrocodone and Norflex for pain and spasm respectively. I recommended a close follow-up with her doctor on Saturday. They were to return to the emergency department if any problems. Departure Impression Primary Impression: Fall Qualified Codes: W19.XXXA - Unspecified fall, initial encounter Additional Impression: Fracture Disposition: 01 HOME, SELF-CARE Condition: Improved Departure-Patient Inst. Decision time for Depature: 15:37 Referrals: YURIY SHAFFER MD (PCP/Family) Primary Care Physician Patient Instructions: Shoulder Fracture (DC) Add. Discharge Instructions: Vicodin Norflex for pain and spasm. Sling for comfort the left shoulder. Follow-up with Dr. Ruiz on Saturday. Return if any problems or questions. All discharge instructions reviewed with patient and/or family. Voiced understanding. PO PERSAUD MD Sep 28, 2017 14:14
[2017-09-28] MEDS ORDERED: fentaNYL INJECTION 100 MCG/2 ML AMP IM ONE (14:15)
--- NOTE | 2017-09-28 14:22 | Diagnostic Imaging Report ---
INDICATION: Fell 9 feet. Complaining of posterior left shoulder pain. EXAMINATION: Left humerus dated 09/28/2017. FINDINGS: Two views of left humerus demonstrate a lucency through the region of the greater tuberosity suspicious for a nondisplaced fracture line. The remaining osseous structures appear to be intact. No dislocations appreciated. IMPRESSION: 1. Suspected fracture at the greater tuberosity. Remaining osseous structures intact. Dictated by: Dictated on workstation # [id number]
--- NOTE | 2017-09-28 14:29 | Diagnostic Imaging Report ---
INDICATION: Fell 9 feet. Low back pain and coccyx pain radiating down left leg. History of arthritis. EXAMINATION: Left hip and pelvis 09/28/2017. FINDINGS: 3 views of the left hip and pelvis. No acute fractures or dislocations appreciated. The joint spaces appear preserved. Soft tissues grossly unremarkable. IMPRESSION: 1. No acute process. If pain persists or patient cannot bear weight, further imaging would be recommended. Dictated by: Dictated on workstation # [id number]
--- NOTE | 2017-09-28 14:30 | Diagnostic Imaging Report ---
PATIENT HISTORY: Fall, posterior left shoulder pain. TECHNIQUE: Three views of the left shoulder. COMPARISON: None. FINDINGS: No acute fracture or dislocation is seen in the left shoulder. Alignment appears normal. Joint spaces are preserved. IMPRESSION: No acute osseous abnormality seen in the left shoulder. Dictated by: Dictated on workstation # [id number]
--- NOTE | 2017-09-28 15:38 | Diagnostic Imaging Report ---
PATIENT HISTORY: 9-foot fall, neck pain and left shoulder pain. TECHNIQUE: Three views of the cervical spine. COMPARISON: None. FINDINGS: The cervical spine is visible from the craniocervical junction down to the cervicothoracic junction on the lateral view. There are minimal multilevel degenerative changes from C4-5 to C6-7. Vertebral body heights are preserved. No acute fracture is seen. The C1-2 alignment appears normal. Prevertebral soft tissues do not appear thickened. IMPRESSION: No acute osseous abnormality is seen in the cervical spine. Dictated by: Dictated on workstation # [id number]
[2017-09-28 15:50] VITALS: BP 123/70
== END 2017-09-28 16:02 | disposition home or self-care (01) ==
LOC: EDUNIT# 13:35 → ER 13:37
DX: S42.92XA Fracture of left shoulder girdle, part unspecified, initial encounter for closed fracture (principal); S72.002A Fracture of unspecified part of neck of left femur, initial encounter for closed fracture; J45.909 Unspecified asthma, uncomplicated; G43.909 Migraine, unspecified, not intractable, without status migrainosus; F41.9 Anxiety disorder, unspecified; Z87.440 Personal history of urinary (tract) infections; Z88.2 Allergy status to sulfonamides; Z88.8 Allergy status to other drugs, medicaments and biological substances; Z91.048 Other nonmedicinal substance allergy status; Z91.041 Radiographic dye allergy status; Z79.51 Long term (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 of inhaled steroids; Z90.89 Acquired absence of other organs; Z90.81 Acquired absence of spleen; Z87.59 Personal history of other complications of pregnancy, childbirth and the puerperium; Z90.710 Acquired absence of both cervix and uterus; W13.1XXA Fall from, out of or through bridge, initial encounter; Y92.89 Other specified places as the place of occurrence of the external cause
CPT/HCPCS: 72040; 73030; 73060

== ENCOUNTER → 2017-12-09 | Outpatient (CLI) | payer OTHER ==
--- NOTE | 2017-12-09 14:59 | Diagnostic Imaging Report ---
PROCEDURE: MRI left upper extremity without contrast. Technique: Multiplanar, multisequence MR imaging of the left shoulder was performed without contrast. Comparison: Shoulder radiographs of 09/28/2017. Indication: Left shoulder pain. Fall approximately 2 months ago. Findings: Rotator cuff: No rotator cuff tear, tendinopathy or muscle atrophy. Glenoid labrum: Potential nondisplaced superior labral tear oriented in an anterior to posterior direction. No para-labral cyst. Long head of biceps: Long head of biceps is normally positioned within the bicipital groove. The intracapsular segment is intact. Bones and cartilage: There is a subacute avulsion type fracture in the anterior one half of the greater tuberosity at the supraspinatus insertion. No displacement of the fracture is present and healing granulation tissue is present within the fracture. No glenohumeral chondromalacia. The acromioclavicular joint is normal in alignment without significant degenerative change. Soft tissues: No glenohumeral joint effusion. No MRI findings to suggest adhesive capsulitis. No fluid or inflammatory like signal within the subacromial/subdeltoid space to indicate bursitis. IMPRESSION: 1. Healing subacute nondisplaced avulsion-type fracture of the greater tuberosity at the supraspinatus insertion. 2. No rotator cuff tear. 3. Potential nondisplaced superior labral tear oriented in anterior to posterior direction (SLAP tear). Dictated by: Dictated on workstation # [id number]
== END ==
LOC: RAD 12:58
PROVIDERS: ATTEND Orthopaedic Surgery
DX: S42.255D Nondisplaced fracture of greater tuberosity of left humerus, subsequent encounter for fracture with routine healing (principal); S43.432A Superior glenoid labrum lesion of left shoulder, initial encounter; W19.XXXD Unspecified fall, subsequent encounter
CPT/HCPCS: 73221

== ENCOUNTER 2018-06-09 17:06 | Emergency (ER) | payer OTHER ==
[~2018-06-09] VITALS: Ht 154.9 cm; Wt 52.6 kg
--- NOTE | 2018-06-09 17:28 | ED EENT ---
History of Present Illness General Chief Complaint: Eye Problems Stated Complaint: R EYE PAIN Nursing Triage Note: PATIENT AMBULATORY TO ER WITH COMPLAINT OF RIGHT EYE PAIN AFTER WAKING UP TODAY. PATIENT STATES SHE SAW DR CORTES ([facility]) IN [place] THIS AM DUE TO EYE PROBLEMS. SHE STATES HER EYE WAS NOT HURTING THIS MORNING BUT AFTER LAYING DOWN TO TAKE A NAP THE PAIN BEGAN AND SHE HAS A FEELING OF SOMETHING IN THE RIGHT EYE. SHE STATES THE EYE DOCTOR PLANS TO PUT SCELARA CAPS ON HER EYES. Source: patient Exam Limitations: no limitations History of Present Illness Date Seen by Provider: Jun 09, 2018 Time Seen by Provider: 17:27 Initial Comments 52-year-old female who presents to the emergency room with complaints of right eye pain after waking up from a nap today. She reports that she did have an eye appointment in [place] with her branch service specialist Dr. Wheeler today but reports that this is just a checkup and they did not do any procedures to the eye. She has a history of sclera and they plan to put on her eyes to help with the drying. She reports she believes she got something in the eye while sleeping. She has a sand under her eyelids sensation to the right eye. Denies visual changes. Location: eye (R) Associated Symptoms: denies symptoms Allergies and Home Medications Allergies Coded Allergies: levofloxacin (Verified Allergy, Intermediate, RASH, 07/31/07) Sulfa (Sulfonamide Antibiotics) (Verified Allergy, Mild, 07/28/07) nitrofurantoin (Unverified Allergy, Mild, 01/11/09) adhesive (Verified Allergy, Unknown, 07/29/07) iodine (Verified Allergy, Unknown, 07/29/07) Home Medications Cefdinir 300 Mg Capsule, 300 MG PO BID FOR INFECTION Prescribed by: INES MCBRIDE on 01/13/172113 Fluticasone Propionate 9.9 Ml Bruning.susp, 2 SPRAYS NS BID Prescribed by: INES MCBRIDE on 01/13/172113 Loratadine/Pseudoephedrine 1 Each Tab.er.12h, 1 EACH PO BID Prescribed by: INES MCBRIDE on 01/13/172113 Patient Home Medication List Home Medication List Reviewed: Yes Review of Systems Review of Systems Constitutional: see HPI; No chills, No fever Eyes: See HPI, Foreign Body Sensation, Pain All Other Systems Reviewed Negative Unless Noted: Yes Past Gksudcq-Ewadgu-Lvykxd Hx Past Med/Social Hx: Reviewed Nursing Past Med/Soc Hx Patient Social History Alcohol Use: Denies Use Recreational Drug Use: No Smoking Status: Never a Smoker 2nd Hand Smoke Exposure: No Recent Foreign Travel: No Contact w/Someone Who Travel: No Recent Infectious Disease Expo: No Recent Hopitalizations: No Immunizations Up To Date Tetanus Booster (TDap): Unknown Seasonal Allergies Seasonal Allergies: No Past Medical History Surgeries: Yes (spleenectomy, d&c) Section, Gallbladder, Hysterectomy, Oophorectomy, Orthopedic Respiratory: Yes Asthma Cardiac: No Neurological: Yes Headaches /Migraines, Neuropathy 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 0oz. 52.052074ky; BMI Method:Actual General Appearance: WD/WN, no apparent distress Eyes: right eye conjunctival inflammation, right eye corneal abrasion Cardiovascular: normal peripheral pulses, regular rate, rhythm, no edema, no gallop, no JVD, no murmur Respiratory: chest non-tender, lungs clear, normal breath sounds, no respiratory distress, no accessory muscle use Neurologic/Psychiatric: alert, normal mood/affect, oriented x 3 Progress/Results/Core Measures Results/Orders My Orders Vital Signs/I&O Blood Pressure Mean: 90 Progress Progress Note : Time: 17:38 Progress Note I have seen and evaluated the patient. She has corneal abrasion to the 6:00 position of her right eye under Coreas lamp examination. She agrees with plan of care, plans for discharge, return precautions were given. Departure Impression Primary Impression: Corneal abrasion Qualified Codes: S05.01XA - Injury of conjunctiva and corneal abrasion without foreign body, right eye, initial encounter Disposition: HOME, SELF-CARE Condition: Stable/Unchanged Departure-Patient Inst. Decision time for Depature: 17:38 Referrals: YURIY SHAFFER MD (PCP/Family) Primary Care Physician Patient Instructions: Corneal Abrasion (DC) Add. Discharge Instructions: Used eyedrops to the right eye. 2 drops every 6 hours while awake for 5 days. Follow-up with Dr. Duarte 's office within 1 week call tomorrow morning to schedule an appointment to be seen for recheck. Return back to the emergency room for worsening symptoms or concerns as needed. All discharge instructions reviewed with patient and/or family. Voiced understanding. JOSEPH LEON Jun 09, 2018 17:28
[2018-06-09] MEDS ORDERED: BSS 15 ML IR ONE (17:30)
[2018-06-09] MEDS ORDERED: FLUORESCEIN (FLUOR-I-STRIPS) 1 MG STRP OU ONE (17:30)
[2018-06-09] MEDS ORDERED: TETRACAINE 0.5% OPHTH SOLN 4 ML BTL (SINGLE DOSE ONLY) OU ONE (17:30)
[2018-06-09] MEDS ORDERED: RX-TOBRAMYCIN 0.3% OPHTH (TOBREX) SOLN 5 ML BTL OP STA (17:39)
--- OUTSIDE RECORDS SUMMARY | 2018-06-09 17:46 | XMS REPORT ---
Author Author YURIY SHAFFER Organization [facility] Address [address] [place] [address] Care Team Providers Care Flag Signalman Name Role Phone YURIY SHAFFER Unavailable PROBLEMS Type Condition ICD9-CM Code QSZ55-SL Code Onset Dates Condition Status SNOMED Code Problem Gastroesophageal reflux disease, esophagitis presence not specified K21.9 Active 085145195 Problem Recurrent UTI N39.0 Active 390914826 Problem Chronic pain due to trauma G89.21 Active 706501256 Problem Chronic migraine without aura without status migrainosus, not intractable G43.709 Active 160245873 Problem Dysthymia F34.1 Active 01449426 Problem Arthritis M19.90 Active 0190344 Problem Bilateral carpal tunnel syndrome G56.03 Active 84346904 Problem Panic disorder with agoraphobia and panic attacks in partial remission F40.01 Active 47529878 ALLERGIES No Information ENCOUNTERS Encounter Location Date Diagnosis [place] [id number] [address] Dec, Arthritis M19.90 and Chronic pain due to trauma G89.21 [facility] [address] [place] [id number] [place] [address] 22497[address]274 Nov, [facility] [id number] [place] [address] 33345- 0462 Nov, [facility] [id number] [place] [address] 29636- 0428 Nov, Arthritis M19.90 and Chronic pain due to trauma G89.21 [facility] [address] [id number] [place] [address] 72066- 9775 Oct, Chronic pain due to trauma G89.21 [facility] [address] [id number] [place] [address] 20133- 0962 Oct, Arthritis M19.90 [facility] [address], [place] [address] Oct, [facility] [address] [place] [id number] [place] [address] 05177- 4096 Oct, Arthritis M19.90 ; Chronic pain due to trauma G89.21 ; Dysthymia F34.1 and Injury of left shoulder, subsequent encounter S49.92XD [facility] [address] [place] [id number] [place] [address] 41999- 4473 Sep, [facility] [address] [place] [place] [id number] [place] [address] 95889- 2775 Sep, Acute bacterial conjunctivitis of both eyes H10.33 [place] [address] [place] [id number] [place] [address] 53848- 9681 Sep, Acute strain of neck muscle, initial encounter S16.1XXA [facility] [address] [place] [id number] [place] [address] 49741- 5747 Sep, Acute recurrent maxillary sinusitis J01.01 and Chronic pain due to trauma G89.21 [facility] [address] [place] [id number] [place] [address] 21595- 0079 Sep, [facility] [address] [place] [address] 88901- 4022 Aug, Acute non-recurrent maxillary sinusitis J01.00 [facility] [address] [place] [address] 83637- 7175 Aug, Arthritis M19.90 [facility] [address] [place] [place] [id number] [place] [address] 70581- 2716 Aug, Arthritis M19.90 [facility] [address] [place] [id number] [place] [address] 82786- 2817 Aug, 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 [address], [place] [address] Jul, Arthritis M19.90 and Panic disorder with agoraphobia and panic attacks in partial remission F40.01 [facility] [address] [place] [id number] [place] [address] 90879- 9598 June, Arthritis M19.90 and Panic disorder with agoraphobia and panic attacks in partial remission F40.01 [place] [address] [place] [id number] [place] [address] 14164- 0433 May, [place] [address] [place] [id number] [place] [address] 76956- 6758 May, Panic disorder with agoraphobia and panic attacks in partial remission F40.01 and Arthritis M19.90 [place] [address] [place] [id number] [place] [address] 98193- 3562 Apr, Panic disorder with agoraphobia and panic attacks in partial remission F40.01 and Arthritis M19.90 [facility] [address] [place] [address] 95338- 4437 Mar, [facility] [address] [place] [id number] [place] [address] 33535- 1782 Mar, Acute nasopharyngitis J00 [facility] [address] [place] [id number] [place] [address] 54025- 8619 Mar, Panic disorder with agoraphobia and panic attacks in partial remission F40.01 and Arthritis M19.90 [facility] [address] [place] [id number] [place] [address] 19055- 0295 Feb, Arthritis M19.90 ; Panic disorder with agoraphobia and panic attacks in partial remission F40.01 ; Dysthymia F34.1 ; Gastroesophageal reflux disease, esophagitis presence not specified K21.9 ; Recurrent UTI N39.0 and Bilateral carpal tunnel syndrome G56.03 [facility] [address] [facility] [id number] [place] [address] Feb, [facility] [address] [facility] [id number] [address] Feb, [facility] [address] [facility] [id number] [address] Mar, Bug bite W57.XXXA and Cellulitis L03.90 IMMUNIZATIONS No Known Immunizations SOCIAL HISTORY Never Assessed REASON FOR VISIT Controlled Med Refill 12/17 PLAN OF CARE VITAL SIGNS MEDICATIONS Medication Instructions Dosage Frequency Start Date End Date Duration Status Hydrocodone-Acetaminophen 7.5-325 MG Orally 3 times a day 1 tablet as needed 8h Dec, 28 days Active Xanax 1 MG Orally [...]
--- OUTSIDE RECORDS SUMMARY | 2018-06-09 17:46 | XMS REPORT ---
Author Author Ron Hines Organization [facility] Address [address] [place], [place] [id number] Care Team Providers Care Personnel Placement Specialist Name Role Phone Ron Hines PCP Allergies and Adverse Reactions Name Reaction Notes adhesive codeine sulfate Plan of Treatment Planned Activity Comments Planned Date Planned Time Plan/Goal MRI BRAIN INC STEM W/WO CONTRAST 03/12/2018 12:00 AM Medications Active Name Start Date Estimated Completion Date SIG Comments citalopram 20 mg oral tablet take 1 tablet (20 mg) by oral route once daily Xanax 1 mg oral tablet take 1 tablet (1 mg) by oral route 3 times per day hydrocodone-acetaminophen 7.5-325 mg oral tablet take 1 tablet by oral route every 6 hours as needed for pain Zantac 150 mg oral tablet take 1 tablet (150 mg) by oral route once daily at bedtime Estrace 0.01 % (0.1 mg/gram) vaginal cream insert 1 gram by vaginal route once weekly Colace 100 mg oral capsule take 1 capsule (100 mg) by oral route once daily Excedrin Migraine 250-250-65 mg oral tablet take 1 tablet by oral route 2 times a day Topamax 200 mg oral tablet take 1 tablet (200 mg) by oral route 2 times per day doxycycline hyclate 50 mg oral tablet take 1 tablet (50 mg) by oral route once daily Problem List Not available. Vital Signs Date Time BP-Sys(mm[Hg] BP-Carmina(mm[Hg]) HR(bpm) RR(rpm) Temp WT HT HC BMI BSA BMI Percentile O2 Sat(%) 03/12/2018 8:06:00 AM 110 mmHg 70 mmHg 54 bpm 97.5 F 120.25 lbs 61 in 22.7208 kg/m 1.5322 m 96 % Social History Name Description Comments Alcohol Never Tobacco Never smoker History of Procedures Not available. Results Summary Not available. History Of Immunizations Not available. History of Past Illness Name Date of Onset Comments Chronic migraine w/o aura, not intractable, w stat migr Mar 12 2018 8:18AM Diplopia Mar 12 2018 8:18AM Tinnitus Mar 12 2018 8:18AM Vertigo Mar 12 2018 8:18AM Nausea & vomiting Mar 12 2018 8:18AM Payers Insurance Name Company Name Plan Name Plan Number Policy Number Policy Group Number Start Date [facility] [id number] N/A State Self Insurance Fund *INVALID State Self Insurance 111 N/A History of Encounters Visit Date Visit Type Provider 03/12/2018 Office visit Ron Flora PRNICE
--- OUTSIDE RECORDS SUMMARY | 2018-06-09 17:46 | XMS REPORT ---
Author Author YURIY SHAFFER Organization [facility] Address [address] [place] [address] Care Team Providers Care Roster Clerk Name Role Phone YURIY SHAFFER Unavailable PROBLEMS Type Condition ICD9-CM Code CBQ62-MD Code Onset Dates Condition Status SNOMED Code Problem Recurrent UTI N39.0 Active 561905067 Problem Arthritis M19.90 Active 2880400 Problem Gastroesophageal reflux disease, esophagitis presence not specified K21.9 Active 450749110 Problem Vasomotor rhinitis J30.0 Active 3776720 Problem Chronic migraine without aura without status migrainosus, not intractable G43.709 Active 699248177 Problem Panic disorder with agoraphobia and panic attacks in partial remission F40.01 Active 21536957 Problem Dysthymia F34.1 Active 38640453 Problem Chronic pain due to trauma G89.21 Active 426806411 Problem Bilateral carpal tunnel syndrome G56.03 Active 73409779 ALLERGIES No Information ENCOUNTERS Encounter Location Date Diagnosis [place] [address] [place] [id number] [place] [address]- [address] Dec, Arthritis M19.90 and Chronic pain due to trauma G89.21 [place] [address] [place] [id number] [place] [address] 11277- 5047 Dec, Reactive lymphadenopathy R59.9 and Vasomotor rhinitis J30.0 [facility] [address] [place] [id number] [place] [address] 32386- 9140 Dec, Arthritis M19.90 and Chronic pain due to trauma G89.21 [place] [address] [place] [id number] [place] [address] 82769- 3383 Nov, [place] [address] [place] [id number] [place] [address] 57110- 7635 Nov, [place] [address], [place] [address] Nov, Arthritis M19.90 and Chronic pain due to trauma G89.21 [facility] [address] [place] [id number] [place] [address] 24108- 8156 Oct, Chronic pain due to trauma G89.21 [facility] [address] [place] [id number] [place] [address] 73475- 4256 Oct, Arthritis M19.90 [place] [address] [place] [id number] [place] [address] 24423- 1765 Oct, [place] [address] [place] [id number] [place] [address] 22678- 5930 Oct, Arthritis M19.90 ; Chronic pain due to trauma G89.21 ; Dysthymia F34.1 and Injury of left shoulder, subsequent encounter S49.92XD [place] [address] [place] [id number] [place] [address] 35724- 3073 Sep, [place] [address] [place] [id number] [place] [address] 24494- 3656 Sep, Acute bacterial conjunctivitis of both eyes H10.33 [place] [address] [place] [id number] [place] [address] 48167- 6325 Sep, Acute strain of neck muscle, initial encounter S16.1XXA [place] [address] [place] [id number] [place] [address] 09679- 7002 Sep, Acute recurrent maxillary sinusitis J01.01 and Chronic pain due to trauma G89.21 [place] [address] [place] [id number] [place] [address] 45016- 0036 Sep, [place] [address] [place] [id number] [place] [address] 34861- 3296 Aug, Acute non-recurrent maxillary sinusitis J01.00 [place] [address] [place] [id number] [place] [address] 71395- 8436 Aug, Arthritis M19.90 [facility] [address], [place] [address] Aug, Arthritis M19.90 [facility] [address] [place] [id number] [place] [address] 60746- 8940 Aug, [facility] [address] [place] [id number] [place] [address] 60592- 1151 Aug, Chronic pain due to trauma G89.21 ; 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 ; Arthritis M19.90 ; Panic disorder with agoraphobia and panic attacks in partial remission F40.01 and Chronic migraine without aura without status migrainosus, not intractable G43.709 [facility] [address] [place] [id number] [place] [address] 27531- 5540 Jul, Arthritis M19.90 and Panic disorder with agoraphobia and panic attacks in partial remission F40.01 [facility] [address] [place] [id number] [place] [address] 64857- 1013 June, Arthritis M19.90 and Panic disorder with agoraphobia and panic attacks in partial remission F40.01 [facility] [address] [place] [id number] [place] [address] 81767- 8333 May, [facility] [address] [place] [id number] [place] [address] 98231- 8464 May, Panic disorder with agoraphobia and panic attacks in partial remission F40.01 and Arthritis M19.90 [facility] [address] [place] [address] 83055- 8542 Apr, Panic disorder with agoraphobia and panic attacks in partial remission F40.01 and Arthritis M19.90 [facility] [address] [place] [id number] [place] [address] 73857- 8166 Mar, [facility] [address] [place] [id number] [place] [address] 57053- 7164 Mar, Acute nasopharyngitis J00 [place] [address] [place] [id number], [place] [address] 09 Mar, 2017 Panic disorder with agoraphobia and panic attacks in partial remission F40.01 and Arthritis M19.90 [facility] [address], [place] [address] Feb, Arthritis M19.90 ; Panic disorder with agoraphobia and panic attacks in partial remission F40.01 ; Dysthymia F34.1 ; Gastroesophageal reflux disease, esophagitis presence not specified K21.9 ; Recurrent UTI N39.0 and Bilateral carpal tunnel syndrome G56.03 [facility] [address] [place] [address] 77085- 3969 Feb, [facility] [address], [place] [address] Feb, [facility] [address], [place] [address] Mar, Bug bite W57.XXXA and Cellulitis L03.90 IMMUNIZATIONS No Known Immunizations SOCIAL HISTORY Never Assessed REASON FOR VISIT Controlled Med Refill 01/14 PLAN OF CARE VITAL SIGNS MEDICATIONS Medication Instructions Dosage Frequency Start Date End Date Duration Status Celexa 20 mg Orally twice a day 1 tablet 12h 30 day(s) Active Xanax 1 MG Orally Once a day 1 tablet 24h 28 days Active Hydrocodone-Acetaminophen 7.5-325 MG Orally 3 times a day 1 tablet as needed 8h Jan, 28 days Active RESULTS No Results PROCEDURES [...]
--- OUTSIDE RECORDS SUMMARY | 2018-06-09 17:46 | XMS REPORT ---
Author Author YURIY SHAFFER Organization [facility] Address [address] [place] [address] Care Team Providers Care Retirement Officer Name Role Phone YURIY SHAFFER Unavailable PROBLEMS Type Condition ICD9-CM Code [id number] Code Onset Dates Condition Status SNOMED Code Problem Gastroesophageal reflux disease, esophagitis presence not specified K21.9 Active 194268859 Problem Recurrent UTI N39.0 Active 042817419 Problem Chronic pain due to trauma G89.21 Active 331552689 Problem Chronic migraine without aura without status migrainosus, not intractable G43.709 Active 714742985 Problem Dysthymia F34.1 Active 66039576 Problem Arthritis M19.90 Active 5214316 Problem Bilateral carpal tunnel syndrome G56.03 Active 34622503 Problem Panic disorder with agoraphobia and panic attacks in partial remission F40.01 Active 21483148 ALLERGIES No Information ENCOUNTERS Encounter Location Date Diagnosis [facility] [id number] [place] [address] 61636- 4713 Nov, [facility] [id number] [place] [address] 32359- 2132 Nov, [facility] [id number] [place] [address] 91729- 0950 Nov, Arthritis M19.90 and Chronic pain due to trauma G89.21 [facility] [id number] [place] [address] 70328- 5071 Oct, Chronic pain due to trauma G89.21 [facility] [id number] [place] [address] 59645- 7677 Oct, Arthritis M19.90 [facility] [id number] [place] [address] 80547- 8762 Oct, [facility] [address] [address] Oct, Arthritis M19.90 ; Chronic pain due to trauma G89.21 ; Dysthymia F34.1 and Injury of left shoulder, subsequent encounter S49.92XD [facility] [address] [place] [address] 19931- 6276 Sep, [facility] [id number] [place] [address] 26722- 0096 Sep, Acute bacterial conjunctivitis of both eyes H10.33 [place] [id number] [place] [address] 10176- 9166 Sep, Acute strain of neck muscle, initial encounter S16.1XXA [place] [id number] [place] [address] 08039- 8990 Sep, Acute recurrent maxillary sinusitis J01.01 and Chronic pain due to trauma G89.21 [facility] [id number] [place] [address] 24495- 7208 Sep, [place] [id number] [place] [address] 64582- 0795 Aug, Acute non-recurrent maxillary sinusitis J01.00 [place] [address] [place] [address] 71430- 1391 Aug, Arthritis M19.90 [facility] [id number] [place] [address] 31787- 8085 Aug, Arthritis M19.90 [facility] [address] [place] [address] 30990- 254 Aug, [facility] [id number] [place] [address] 59767- 2546 Aug, Chronic pain due to trauma G89.21 ; [facility] (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 analgesic Z79.891 ; Arthritis M19.90 ; Panic disorder with agoraphobia and panic attacks in partial remission F40.01 and Chronic migraine without aura without status migrainosus, not intractable G43.709 [place] [id number] [place] [address] 77310- 3946 Jul, Arthritis M19.90 and Panic disorder with agoraphobia and panic attacks in partial remission F40.01 [place] [id number] [place] [address] 97516- 9467 June, Arthritis M19.90 and Panic disorder with agoraphobia and panic attacks in partial remission F40.01 [place] [id number] [place] [address] 86670- 2966 May, [place] [address] 99947- 5786 May, Panic disorder with agoraphobia and panic attacks in partial remission F40.01 and Arthritis M19.90 [place] [address] 60545- 7627 Apr, Panic disorder with agoraphobia and panic attacks in partial remission F40.01 and Arthritis M19.90 [place] [id number] [place] [address] 96548- 2687 Mar, [place] [id number] [place] [address] 24915- 2915 Mar, Acute nasopharyngitis J00 [place] [id number] [place] [address] 13541- 4610 Mar, Panic disorder with agoraphobia and panic attacks in partial remission F40.01 and Arthritis M19.90 [place] [id number] [place] [address] 40115- 0269 Feb, Arthritis M19.90 ; Panic disorder with agoraphobia and panic attacks in partial remission F40.01 ; Dysthymia F34.1 ; Gastroesophageal reflux disease, esophagitis presence not specified K21.9 ; Recurrent UTI N39.0 and Bilateral carpal tunnel syndrome G56.03 [place] [address] [facility] [id number] [place] [address] 3[address] Feb, [facility] [address] [facility] [id number] [place] [address] 8858 Feb, [facility] [address] [facility] [id number] [place] [address] Mar, Bug bite W57.XXXA and Cellulitis L03.90 IMMUNIZATIONS No Known Immunizations SOCIAL HISTORY Never Assessed REASON FOR VISIT FYI PLAN OF CARE VITAL SIGNS MEDICATIONS Unknown [...]
--- OUTSIDE RECORDS SUMMARY | 2018-06-09 17:46 | XMS REPORT ---
Author Author YURIY SHAFFER Organization [facility] Address [address] [place] [address] Care Team Providers Care Assembler For Puller Over Hand Name Role Phone YURIY SHAFFER Unavailable PROBLEMS Type Condition ICD9-CM Code BKC83-VB Code Onset Dates Condition Status SNOMED Code Problem Recurrent UTI N39.0 Active 142748468 Problem Gastroesophageal reflux disease, esophagitis presence not specified K21.9 Active 923343916 Problem Arthritis M19.90 Active 0276965 Problem Chronic migraine without aura without status migrainosus, not intractable G43.709 Active 255838194 Problem Vasomotor rhinitis J30.0 Active 5177079 Problem Dysthymia F34.1 Active 16780126 Problem Panic disorder with agoraphobia and panic attacks in partial remission F40.01 Active 38662182 Problem Bilateral carpal tunnel syndrome G56.03 Active 24191508 Problem Chronic pain due to trauma G89.21 Active 731860914 ALLERGIES No Information ENCOUNTERS Encounter Location Date Diagnosis [place] [id number] [place] [address] 17143- 5859 June, [place] [id number] [place] [address] 49231- 7376 May, Allergic drug rash L27.0 [facility] [address] 66668- 5345 May, [facility] [id number] [place] [address] 27364- 9611 Apr, Arthritis M19.90 [facility] [address] 42440- 7598 Apr, [facility] [id number] [place] [address] 43522- 6750 Apr, [place] [id number] [place] [address] 19669- 5255 Apr, Arthritis M19.90 [facility] [id number]- 7334 Apr, Chronic pain due to trauma G89.21 and Arthritis M19.90 [facility] [id number] [place] [address] 64696- 5164 Apr, [facility] [address] 87468- 0791 Mar, Chronic pain due to trauma G89.21 and Arthritis M19.90 [facility] [address] 47500- 8565 Feb, Arthritis M19.90 and Chronic pain due to trauma G89.21 [facility] [address] 04582- 3524 Jan, Arthritis M19.90 and Chronic pain due to trauma G89.21 [facility] [id number] [place] [address] 33545- 3492 Dec, Arthritis M19.90 and Chronic pain due to trauma G89.21 [facility] [id number] [place] [address] 55109- 6301 Dec, Reactive lymphadenopathy R59.9 and Vasomotor rhinitis J30.0 [facility] [id number] [place] [address] 88574- 8906 Dec, Arthritis M19.90 and Chronic pain due to trauma G89.21 [facility] [id number] [place] [address] 61433- 1886 Nov, [facility] [id number] [place] [address] 58877- 4809 Nov, [facility] [id number] [place] [address] 53118- 5192 Nov, Arthritis M19.90 and Chronic pain due to trauma G89.21 [facility] [address], [place] [address]- 9140 11 Oct, 2017 Chronic pain due to trauma G89.21 [facility] [address] [place] [address] 84183 2546 11 Oct, 2017 Arthritis M19.90 [facility] [address] [place] [address] 11760- 4156 11 Oct, 2017 [place] [id number] [place] [address] 31633 2542 10 Oct, 2017 Arthritis M19.90 ; Chronic pain due to trauma G89.21 ; Dysthymia F34.1 and Injury of left shoulder, subsequent encounter S49.92XD [place] [address], [place] [address]- 9784 Sep, [place] [id number] [place] [address] 94785- 0392 Sep, Acute bacterial conjunctivitis of both eyes H10.33 [place] [address] [place] [address] 13305- 9182 Sep, Acute strain of neck muscle, initial encounter S16.1XXA [place] [address] [place] [address] 23228- 0208 Sep, Acute recurrent maxillary sinusitis J01.01 and Chronic pain due to trauma G89.21 [place] [address], [place] [address]- 0544 Sep, [place] [address] [place] [address] 81391- 2541 Aug, Acute non-recurrent maxillary sinusitis J01.00 [place] [address] [place] [address] 29596- 4316 Aug, Arthritis M19.90 [place] [address] [place] [address] 32693- 3113 Aug, Arthritis M19.90 [facility] [address], [place] [address]- 5118 Aug, [facility] [id number] [address]- 0557 Aug, Chronic pain due to trauma G89.21 ; 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 ; Arthritis M19.90 ; Panic disorder with agoraphobia and panic attacks in partial remission F40.01 and Chronic migraine without aura without status migrainosus, not intractable G43.709 [facility] [address], [place] [address]- 3905 Jul, Arthritis M19.90 and Panic disorder with agoraphobia and panic attacks in partial remission F40.01 [place] [address], [place] [address]- 8442 June, Arthritis M19.90 and Panic disorder with agoraphobia and panic attacks in partial remission F40.01 [facility] [address], [place] [address]- 1160 May, [facility] [id number] [place] [address] 95622- 9789 May, Panic disorder with agoraphobia and panic attacks in partial remission F40.01 and Arthritis M19.90 [facility] [address], [place] [address]- 6543 Apr, Panic disorder with agoraphobia and panic attacks in partial remission F40.01 and Arthritis M19.90 [facility] [address], [place] [address]- 8905 Mar, [facility] [address], [place] [address]- 3187 Mar, Acute nasopharyngitis J00 [facility] [address], [place] [address]- 5043 Mar, Panic disorder with agoraphobia and panic attacks in partial remission F40.01 and Arthritis M19.90 [facility] [address], [place] [address]- 9797 Feb, Arthritis M19.90 ; Panic disorder with agoraphobia and panic attacks in partial remission F40.01 ; Dysthymia F34.1 ; Gastroesophageal reflux disease, esophagitis presence not specified K21.9 ; Recurrent UTI N39.0 and Bilateral carpal tunnel syndrome G56.03 [facility] [address], [place] [address]- 5027 Feb, [facility] [address], [place] [address]- 4536 Feb, [facility] [id number], [place] [address] Mar, Bug bite W57.XXXA and Cellulitis L03.90 IMMUNIZATIONS No Known Immunizations SOCIAL HISTORY Never Assessed REASON FOR VISIT Med refill PLAN OF CARE VITAL SIGNS MEDICATIONS Unknown [...]
--- OUTSIDE RECORDS SUMMARY | 2018-06-09 17:46 | XMS REPORT ---
Author Author GINI CUELLAR Organization [facility] Address [address] [place] [address] Care Team Providers Care Rn Flight Name Role Phone GINI CUELLAR Unavailable PROBLEMS Type Condition ICD9-CM Code ANF98-BB Code Onset Dates Condition Status SNOMED Code Problem Recurrent UTI N39.0 Active 941637818 Problem Arthritis M19.90 Active 3278526 Problem Gastroesophageal reflux disease, esophagitis presence not specified K21.9 Active 965041643 Problem Vasomotor rhinitis J30.0 Active 8037661 Problem Chronic migraine without aura without status migrainosus, not intractable G43.709 Active 699704315 Problem Panic disorder with agoraphobia and panic attacks in partial remission F40.01 Active 55608630 Problem Dysthymia F34.1 Active 65879919 Problem Chronic pain due to trauma G89.21 Active 594130114 Problem Bilateral carpal tunnel syndrome G56.03 Active 13864882 ALLERGIES Substance Reaction Event Type Date Status sulfa drugs hives Drug Allergy Dec, Active Levaquin hives Drug Allergy Dec, Active Iodine rash Drug Allergy Dec, Active tape nausea Non Drug Allergy Dec, Active ENCOUNTERS Encounter Location Date Diagnosis [facility] [address], [place] [address]- 9076 Dec, Arthritis M19.90 and Chronic pain due to trauma G89.21 [facility] [address], [place] [address]- 3729 Dec, Reactive lymphadenopathy R59.9 and Vasomotor rhinitis J30.0 [facility] [address], [place] [address]- 6291 Dec, Arthritis M19.90 and Chronic pain due to trauma G89.21 [facility] [address] [place] [address] 75158- 0350 Nov, [facility] [address], [place] [address]- 2447 Nov, [facility] [id number] [place] [address] 87281- 2830 Nov, Arthritis M19.90 and Chronic pain due to trauma G89.21 [facility] [id number] [place] [address] 95358- 4760 Oct, Chronic pain due to trauma G89.21 [facility] [address] [place] [address] 05978- 9764 Oct, Arthritis M19.90 [facility] [id number] [place] [address] 53759- 4713 Oct, [facility] [id number] [place] [address] 12272- 0266 10 Oct, 2017 Arthritis M19.90 ; Chronic pain due to trauma G89.21 ; Dysthymia F34.1 and Injury of left shoulder, subsequent encounter S49.92XD [place] [id number] [place] [address] 41566- 9997 Sep, [place] [address] [place] [address] 54629- 4524 Sep, Acute bacterial conjunctivitis of both eyes H10.33 [facility] [id number] [place] [address] 02243- 5764 Sep, Acute strain of neck muscle, initial encounter S16.1XXA [facility] [address] [place] [address] 60209- 3560 Sep, Acute recurrent maxillary sinusitis J01.01 and Chronic pain due to trauma G89.21 [facility] [address] [place] [address] 88500- 4318 Sep, [facility] [id number] [place] [address] 83125- 0670 Aug, Acute non-recurrent maxillary sinusitis J01.00 [facility] [address], [place] [address]- 7425 Aug, Arthritis M19.90 [facility] [address], [place] [address]- 4812 Aug, Arthritis M19.90 [place] [address] [place] [address] 30980- 8350 Aug, [place] [address] [place] [address] 31071- 3593 Aug, Chronic pain due to trauma G89.21 ; 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 ; Arthritis M19.90 ; Panic disorder with agoraphobia and panic attacks in partial remission F40.01 and Chronic migraine without aura without status migrainosus, not intractable G43.709 [place] [address] [place] [address] 28383- 7384 Jul, Arthritis M19.90 and Panic disorder with agoraphobia and panic attacks in partial remission F40.01 [place] [address] [place] [address] 66724- 4453 June, Arthritis M19.90 and Panic disorder with agoraphobia and panic attacks in partial remission F40.01 [place] [address], [place] [address]- 5150 May, [place] [id number] [place] [address] 52179- 9011 May, Panic disorder with agoraphobia and panic attacks in partial remission F40.01 and Arthritis M19.90 [place] [address] [place] [address] 87908- 1372 Apr, Panic disorder with agoraphobia and panic attacks in partial remission F40.01 and Arthritis M19.90 [place] [address] [place] [address] 32098- 1001 Mar, [facility] [address] [place] [address] 78378- 9469 Mar, Acute nasopharyngitis J00 [facility] [id number] [place] [address] 63513- 9067 Mar, Panic disorder with agoraphobia and panic attacks in partial remission F40.01 and Arthritis M19.90 [facility] [address] 91979- 6349 Feb, Arthritis M19.90 ; Panic disorder with agoraphobia and panic attacks in partial remission F40.01 ; Dysthymia F34.1 ; Gastroesophageal reflux disease, esophagitis presence not specified K21.9 ; Recurrent UTI N39.0 and Bilateral carpal tunnel syndrome G56.03 [place] [address] 90172- 1139 Feb, [facility] [id number] [place] [address] 83427- 3349 Feb, [facility] [id number] [place] [address] 38189 -1979 Mar, Bug bite W57.XXXA and Cellulitis L03.90 IMMUNIZATIONS No Known Immunizations SOCIAL HISTORY Never Assessed REASON FOR VISIT Congestion, Pt has had some congestion for several days, also c/o knot in front of L ear that is causing trouble. C/o a feeling of face being bruised, loss of hearing crackling noises and ringing in ear Pt also states Dr. Huerta recently put her on an antibiotic for her eyes JAMILA Tang PLAN OF CARE Activity Details Follow Up prn Reason: VITAL SIGNS Height 61 in 2017-12-30 Weight 116.4 lbs 2017-12-30 Temperature 98.6 degrees Fahrenheit 2017-12-30 Heart Rate 80 bpm 2017-12-30 Respiratory Rate 18 2017-12-30 BMI 21.99 kg/m2 2017-12-30 Blood pressure systolic 104 mmHg 2017-12-30 Blood pressure diastolic 62 mmHg 2017-12-30 MEDICATIONS Medication Instructions Dosage Frequency Start Date End Date Duration Status Zofran 4 MG Orally q 6h prn nausea 1tablet Active Topamax 200 MG Orally Twice a day 1 tablet 12h Active Xanax 1 MG Orally Once a day 1 tablet 24h 28 days Active Macrodantin 100 MG Orally Once a day 1 capsule with food or milk 24h Active Flonase Active Celexa 20 mg Orally twice a day 1 tablet 12h Active Hydrocodone-Acetaminophen 7.5-325 MG Orally 3 times a day 1 tablet as needed 8h Dec, 28 days Active RESULTS No Results PROCEDURES [...]
--- OUTSIDE RECORDS SUMMARY | 2018-06-09 17:47 | XMS REPORT ---
Author Author YURIY SHAFFER Organization [facility] Address [address] [place] [address] Care Team Providers Care Precision Grinder Name Role Phone YURIY SHAFFER Unavailable PROBLEMS Type Condition ICD9-CM Code LXS61-NR Code Onset Dates Condition Status SNOMED Code Problem Gastroesophageal reflux disease, esophagitis presence not specified K21.9 Active 279140922 Problem Recurrent UTI N39.0 Active 665703178 Problem Chronic pain due to trauma G89.21 Active 376507277 Problem Chronic migraine without aura without status migrainosus, not intractable G43.709 Active 241368743 Problem Dysthymia F34.1 Active 32000305 Problem Arthritis M19.90 Active 5481199 Problem Bilateral carpal tunnel syndrome G56.03 Active 72852628 Problem Panic disorder with agoraphobia and panic attacks in partial remission F40.01 Active 12048697 ALLERGIES No Information ENCOUNTERS Encounter Location Date Diagnosis [place] [address] [address] Oct, Chronic pain due to trauma G89.21 [place] [address], [place] [address] Oct, Arthritis M19.90 [facility] [address] [place] [id number] [place] [address] 86370- 3891 Oct, [place] [address] [place] [id number] [place] [address] 90423- 0789 Oct, Arthritis M19.90 ; Chronic pain due to trauma G89.21 ; Dysthymia F34.1 and Injury of left shoulder, subsequent encounter S49.92XD [place] [address] [place] [id number] [place] [address] 24286- 9823 Sep, [place] [address] [place] [address] [address] Sep, Acute bacterial conjunctivitis of both eyes H10.33 [place] [address] [place] [id number] [place] [address] 22630- 5020 Sep, Acute strain of neck muscle, initial encounter S16.1XXA [facility] [address] [place] [id number] [place] [address] 95470- 3134 Sep, Acute recurrent maxillary sinusitis J01.01 and Chronic pain due to trauma G89.21 [facility] [address] [place] [id number] [place] [address] 00641- 8560 Sep, [place] [address] [place] [id number] [place] [address] 95717- 5598 Aug, Acute non-recurrent maxillary sinusitis J01.00 [place] [address] [place] [id number] [place] [address] 73349- 6431 Aug, Arthritis M19.90 [place] [address] [place] [id number] [place] [address] 11713- 9836 Aug, Arthritis M19.90 [place] [address] [place] [id number] [place] [address] 60424- 6098 Aug, [facility] [address] [place] [address] 81369- 0952 Aug, Chronic pain due to trauma G89.21 ; 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 ; Arthritis M19.90 ; Panic disorder with agoraphobia and panic attacks in partial remission F40.01 and Chronic migraine without aura without status migrainosus, not intractable G43.709 [place] [address] [place] [id number] [place] [address] 38137- 5113 Jul, Arthritis M19.90 and Panic disorder with agoraphobia and panic attacks in partial remission F40.01 [facility] [address] [place] [address] 40637- 5733 June, Arthritis M19.90 and Panic disorder with agoraphobia and panic attacks in partial remission F40.01 [facility] [address] [id number] [place] [address] 36406- 1111 May, [place] [address] [place] [id number] [place] [address] 86372- 1140 May, Panic disorder with agoraphobia and panic attacks in partial remission F40.01 and Arthritis M19.90 [place] [address] [place] [id number] [place] [address] 15828- 3917 Apr, Panic disorder with agoraphobia and panic attacks in partial remission F40.01 and Arthritis M19.90 [facility] [address] [place] [id number] [place] [address] 40969- 8709 Mar, [place] [address] [place] [id number] [place] [address] 38468- 4000 Mar, Acute nasopharyngitis J00 [facility] [address] [place] [id number] [place] [address] 98757- 2459 Mar, Panic disorder with agoraphobia and panic attacks in partial remission F40.01 and Arthritis M19.90 [facility] [address] [place] [id number] [place] [address] 98485- 9427 Feb, Arthritis M19.90 ; Panic disorder with agoraphobia and panic attacks in partial remission F40.01 ; Dysthymia F34.1 ; Gastroesophageal reflux disease, esophagitis presence not specified K21.9 ; Recurrent UTI N39.0 and Bilateral carpal tunnel syndrome G56.03 [facility] [address] [place] [id number] [place] [address] 04698- 6472 Feb, [facility] [address] [place] [id number] [place] [address] 85858- 0827 Feb, [facility] [address] [place] [address] 63956 -6892 Mar, Bug bite W57.XXXA and Cellulitis L03.90 IMMUNIZATIONS No Known Immunizations SOCIAL HISTORY Never Assessed REASON FOR VISIT Controlled Med Refill PLAN OF CARE VITAL SIGNS MEDICATIONS Medication [...]
--- OUTSIDE RECORDS SUMMARY | 2018-06-09 17:47 | XMS REPORT ---
Author Author YURIY SHAFFER Organization [facility] Address [address] [place] [address] Care Team Providers Care Transformation Analyst Name Role Phone YURIY SHAFFER Unavailable PROBLEMS Type Condition ICD9-CM Code NLR07-UM Code Onset Dates Condition Status SNOMED Code Problem Gastroesophageal reflux disease, esophagitis presence not specified K21.9 Active 696434980 Problem Recurrent UTI N39.0 Active 935330947 Problem Chronic pain due to trauma G89.21 Active 385336532 Problem Chronic migraine without aura without status migrainosus, not intractable G43.709 Active 051724114 Problem Dysthymia F34.1 Active 47659586 Problem Arthritis M19.90 Active 1514824 Problem Bilateral carpal tunnel syndrome G56.03 Active 64292987 Problem Panic disorder with agoraphobia and panic attacks in partial remission F40.01 Active 97617379 ALLERGIES Substance Reaction Event Type Date Status sulfa drugs hives Drug Allergy Aug, Active Levaquin hives Drug Allergy Aug, Active Iodine rash Drug Allergy Aug, Active tape nausea Non Drug Allergy Aug, Active ENCOUNTERS Encounter Location Date Diagnosis [place] [address] [place] [id number], [place] [address] Oct, Chronic pain due to trauma G89.21 [facility] [address] [place] [id number], [place] [address] Oct, Arthritis M19.90 [facility] [address] [place] [address] 21215- 8221 Oct, [facility] [address], [place] [address] Oct, Arthritis M19.90 ; Chronic pain due to trauma G89.21 ; Dysthymia F34.1 and Injury of left shoulder, subsequent encounter S49.92XD [facility] [address], [place] [address] Sep, [facility] [address] [place] [id number] [place] [address] 80185- 3630 Sep, Acute bacterial conjunctivitis of both eyes H10.33 [facility] [address] [place] [address] 16627- 9896 Sep, Acute strain of neck muscle, initial encounter S16.1XXA [facility] [address] [place] [address] [id number] [place] [address] 90040- 4443 Sep, Acute recurrent maxillary sinusitis J01.01 and Chronic pain due to trauma G89.21 [facility] [address] [place] [id number] [place] [address] 88609- 6318 Sep, [facility] [address] [place] [address] [id number] [place] [address] 73372- 8607 Aug, Acute non-recurrent maxillary sinusitis J01.00 [facility] [address] [place] [address] 02194- 6305 Aug, Arthritis M19.90 [facility] [address] [place] [id number] [place] [address] 71417- 6343 Aug, Arthritis M19.90 [facility] [address], [place] [address]- 18[address] Aug, [facility] [address] [place] [id number] [place] [address] 76167- 8837 Aug, Chronic pain due to trauma G89.21 ; 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 ; Arthritis M19.90 ; Panic disorder with agoraphobia and panic attacks in partial remission F40.01 and Chronic migraine without aura without status migrainosus, not intractable G43.709 [facility] [address], [place] [address]- 42[address] Jul, Arthritis M19.90 and Panic disorder with agoraphobia and panic attacks in partial remission F40.01 [facility] [address] [place] [address] [id number] [place] [address] 86373- 5150 June, Arthritis M19.90 and Panic disorder with agoraphobia and panic attacks in partial remission F40.01 [facility] [address] [place] [id number] [place] [address] 90737- 3078 May, [facility] [address] 47446- 6621 May, Panic disorder with agoraphobia and panic attacks in partial remission F40.01 and Arthritis M19.90 [place] [address] 08999- 8775 Apr, Panic disorder with agoraphobia and panic attacks in partial remission F40.01 and Arthritis M19.90 [facility] [address] [place] [id number] [place] [address] 36448- 2555 Mar, [facility] [address] [place] [id number] [place] [address] 09856- 5911 Mar, Acute nasopharyngitis J00 [place] [address] 10994- 7279 Mar, Panic disorder with agoraphobia and panic attacks in partial remission F40.01 and Arthritis M19.90 [place] [address] [place] [id number] [place] [address] 91613- 0064 Feb, Arthritis M19.90 ; Panic disorder with agoraphobia and panic attacks in partial remission F40.01 ; Dysthymia F34.1 ; Gastroesophageal reflux disease, esophagitis presence not specified K21.9 ; Recurrent UTI N39.0 and Bilateral carpal tunnel syndrome G56.03 [place] [address] [place] [address] [id number] [place] [address] 49245- 5935 Feb, [facility] [address] [place] [address] [id number] [place] [address] 86745- 5822 Feb, [facility] [address] [facility] [id number] [place] [address] Mar, Bug bite W57.XXXA and Cellulitis L03.90 IMMUNIZATIONS No Known Immunizations SOCIAL HISTORY Never Assessed REASON FOR VISIT Sinus c/o-JAMILA mayres PLAN OF CARE Activity Details Follow Up Regular appt Reason: VITAL SIGNS Height 61 in 2017-09-05 Weight 107.4 lbs 2017-09-05 Temperature 99.1 degrees Fahrenheit 2017-09-05 Heart Rate 81 bpm 2017-09-05 Respiratory Rate 18 2017-09-05 BMI 20.29 kg/m2 2017-09-05 Blood pressure systolic 130 mmHg 2017-09-05 Blood pressure diastolic 72 mmHg 2017-09-05 MEDICATIONS Medication Instructions Dosage Frequency Start Date End Date Duration Status Macrodantin 100 MG Orally Once a day 1 capsule with food or milk 24h Active Hydrocodone-Acetaminophen 7.5-325 MG Orally 3 times a day 1 tablet as needed 8h Aug, 28 days Active Xanax 1 MG Orally Once a day 1 tablet 24h 28 days Active Topamax 200 MG Orally Twice a day 1 tablet 12h Active Doxycycline Hyclate 100 mg Orally twice a day 1 capsule 12h Aug, Sep, 07 days Active Celexa 20 mg Orally twice a day 1 tablet 12h Active Flonase Active SudoGest 60 mg Orally every 6 hrs 1 tablet as needed 6h Aug, 05 days Active Zofran 4 MG Orally q 6h prn nausea 1tablet Active RESULTS No Results PROCEDURES No Known [...]
--- OUTSIDE RECORDS SUMMARY | 2018-06-09 17:47 | XMS REPORT ---
Author Author YURIY SHAFFER Organization [facility] Address [address] [place] [address] Care Team Providers Care Shingle Sawyer Name Role Phone YURIY SHAFFER Unavailable PROBLEMS Type Condition ICD9-CM Code CBX34-ZQ Code Onset Dates Condition Status SNOMED Code Problem Gastroesophageal reflux disease, esophagitis presence not specified K21.9 Active 399294025 Problem Recurrent UTI N39.0 Active 873160678 Problem Chronic pain due to trauma G89.21 Active 129621914 Problem Chronic migraine without aura without status migrainosus, not intractable G43.709 Active 593238007 Problem Dysthymia F34.1 Active 59398898 Problem Arthritis M19.90 Active 8905555 Problem Bilateral carpal tunnel syndrome G56.03 Active 46365405 Problem Panic disorder with agoraphobia and panic attacks in partial remission F40.01 Active 28855122 ALLERGIES No Information ENCOUNTERS Encounter Location Date Diagnosis [place] [address] [address]- [address] Oct, Chronic pain due to trauma G89.21 [place] [address] [address]- 0072 Oct, Arthritis M19.90 [facility] [address] [place] [id number] [place] [address] 64440- 9797 Oct, [place] [address] [place] [id number] [place] [address] 34684- 3357 Oct, Arthritis M19.90 ; Chronic pain due to trauma G89.21 ; Dysthymia F34.1 and Injury of left shoulder, subsequent encounter S49.92XD [place] [address] [place] [id number] [place] [address] 97020- 7992 Sep, [place] [address] [place] [address]- 0397 Sep, Acute bacterial conjunctivitis of both eyes H10.33 [place] [address] [place] [id number] [place] [address] 94539- 2148 Sep, Acute strain of neck muscle, initial encounter S16.1XXA [facility] [address] [place] [id number] [place] [address] 81305- 4111 Sep, Acute recurrent maxillary sinusitis J01.01 and Chronic pain due to trauma G89.21 [facility] [address] [place] [id number] [place] [address] 29962- 7584 Sep, [place] [address] [place] [id number] [place] [address] 08234- 2060 Aug, Acute non-recurrent maxillary sinusitis J01.00 [place] [address] [place] [id number] [place] [address] 51255- 8236 Aug, Arthritis M19.90 [place] [address] [place] [id number] [place] [address] 85308- 3432 Aug, Arthritis M19.90 [place] [address] [place] [id number] [place] [address] 39800- 5997 Aug, [facility] [address] [place] [address] 11072- 1075 Aug, Chronic pain due to trauma G89.21 ; 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 ; Arthritis M19.90 ; Panic disorder with agoraphobia and panic attacks in partial remission F40.01 and Chronic migraine without aura without status migrainosus, not intractable G43.709 [place] [address] [place] [id number] [place] [address] 70072- 8156 Jul, Arthritis M19.90 and Panic disorder with agoraphobia and panic attacks in partial remission F40.01 [facility] [address] [place] [address] 80708- 7460 June, Arthritis M19.90 and Panic disorder with agoraphobia and panic attacks in partial remission F40.01 [facility] [address] [place] [id number] [place] [address] 65673- 4000 May, [place] [address] [place] [id number] [place] [address] 62722- 6910 May, Panic disorder with agoraphobia and panic attacks in partial remission F40.01 and Arthritis M19.90 [place] [address] [place] [id number] [place] [address] 58341- 4507 Apr, Panic disorder with agoraphobia and panic attacks in partial remission F40.01 and Arthritis M19.90 [facility] [address] [place] [id number] [place] [address] 17529- 7228 Mar, [place] [address] [place] [id number] [place] [address] 10143- 3979 Mar, Acute nasopharyngitis J00 [facility] [address] [place] [id number] [place] [address] 35786- 9103 Mar, Panic disorder with agoraphobia and panic attacks in partial remission F40.01 and Arthritis M19.90 [facility] [address] [place] [id number] [place] [address] 26401- 3015 Feb, Arthritis M19.90 ; Panic disorder with agoraphobia and panic attacks in partial remission F40.01 ; Dysthymia F34.1 ; Gastroesophageal reflux disease, esophagitis presence not specified K21.9 ; Recurrent UTI N39.0 and Bilateral carpal tunnel syndrome G56.03 [facility] [address] [place] [id number] [place] [address] 67900- 2953 Feb, [facility] [address] [place] [id number] [place] [address] 57331- 3814 Feb, [facility] [address] [place] [address] 76621 -5817 Mar, Bug bite W57.XXXA and Cellulitis L03.90 IMMUNIZATIONS No Known Immunizations SOCIAL HISTORY Never Assessed REASON FOR VISIT Requests return call PLAN OF CARE VITAL SIGNS MEDICATIONS Unknown [...]
--- OUTSIDE RECORDS SUMMARY | 2018-06-09 17:47 | XMS REPORT ---
Author Author YURIY SHAFFER Organization [facility] Address [address] [place] [address] Care Team Providers Care Air Intelligence Specialist Name Role Phone YURIY SHAFFER Unavailable PROBLEMS Type Condition ICD9-CM Code BDS34-[place] Code Onset Dates Condition Status SNOMED Code Problem Gastroesophageal reflux disease, esophagitis presence not specified K21.9 Active 313580409 Problem Recurrent UTI N39.0 Active 889144780 Problem Chronic pain due to trauma G89.21 Active 083282545 Problem Chronic migraine without aura without status migrainosus, not intractable G43.709 Active 510984068 Problem Dysthymia F34.1 Active 46207048 Problem Arthritis M19.90 Active 3548400 Problem Bilateral carpal tunnel syndrome G56.03 Active 51203913 Problem Panic disorder with agoraphobia and panic attacks in partial remission F40.01 Active 82110770 ALLERGIES No Information ENCOUNTERS Encounter Location Date Diagnosis [place] [address] [address]- [address]05 Oct, Chronic pain due to trauma G89.21 [place] [address], [place] [address] 9[address] Oct, Arthritis M19.90 [facility] [address] [place] [id number] [place] [address] 72883- 9895 Oct, [place] [address] [place] [id number] [place] [address] 83013- 6443 Oct, Arthritis M19.90 ; Chronic pain due to trauma G89.21 ; Dysthymia F34.1 and Injury of left shoulder, subsequent encounter S49.92XD [place] [address] [place] [id number] [place] [address] 32415- 7436 Sep, [place] [address] [place] [address] [address]- 7663 Sep, Acute bacterial conjunctivitis of both eyes H10.33 [place] [address] [place] [address] [id number] [place] [address] 17056- 2406 Sep, Acute strain of neck muscle, initial encounter S16.1XXA [facility] [address] [place] [id number] [place] [address] 22685- 2712 Sep, Acute recurrent maxillary sinusitis J01.01 and Chronic pain due to trauma G89.21 [facility] [address] [place] [id number] [place] [address] 46894- 6117 Sep, [place] [address] [place] [id number] [place] [address] 81844- 4816 Aug, Acute non-recurrent maxillary sinusitis J01.00 [place] [address] [place] [id number] [place] [address] 54369- 9975 Aug, Arthritis M19.90 [place] [address] [place] [id number] [place] [address] 47285- 0834 Aug, Arthritis M19.90 [place] [address] [place] [id number] [place] [address] 33023- 7099 Aug, [facility] [address] [place] [address] 89206- 4584 Aug, Chronic pain due to trauma G89.21 ; 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 ; Arthritis M19.90 ; Panic disorder with agoraphobia and panic attacks in partial remission F40.01 and Chronic migraine without aura without status migrainosus, not intractable G43.709 [place] [address] [place] [id number] [place] [address] 09779- 2923 Jul, Arthritis M19.90 and Panic disorder with agoraphobia and panic attacks in partial remission F40.01 [facility] [address] [place] [address] 62881- 6636 June, Arthritis M19.90 and Panic disorder with agoraphobia and panic attacks in partial remission F40.01 [facility] [address] [place] [id number] [place] [address] 87530- 7952 May, [place] [address] [place] [address] [id number] [place] [address] 68749- 4578 May, Panic disorder with agoraphobia and panic attacks in partial remission F40.01 and Arthritis M19.90 [place] [address] [place] [address] [id number] [place] [address] 81011- 1362 Apr, Panic disorder with agoraphobia and panic attacks in partial remission F40.01 and Arthritis M19.90 [facility] [address] [place] [id number] [place] [address] 49397- 7230 Mar, [place] [address] [place] [address] [id number] [place] [address] 04316- 9127 Mar, Acute nasopharyngitis J00 [facility] [address] [place] [address] [id number] [place] [address] 26092- 0289 Mar, Panic disorder with agoraphobia and panic attacks in partial remission F40.01 and Arthritis M19.90 [facility] [address] [place] [address] [id number] [place] [address] 85843- 4009 Feb, Arthritis M19.90 ; Panic disorder with agoraphobia and panic attacks in partial remission F40.01 ; Dysthymia F34.1 ; Gastroesophageal reflux disease, esophagitis presence not specified K21.9 ; Recurrent UTI N39.0 and Bilateral carpal tunnel syndrome G56.03 [facility] [address] [place] [id number] [place] [address] 46503- 9237 Feb, [facility] [address] [place] [id number] [place] [address] 28497- 4290 Feb, [facility] [address] [place] [address] 03441 -1937 Mar, Bug bite W57.XXXA and Cellulitis L03.90 [...]
--- OUTSIDE RECORDS SUMMARY | 2018-06-09 17:47 | XMS REPORT ---
Author Author LEATHA POWERS Organization [facility] Address [address] [place] [address] Care Team Providers Care State Patrol Officer Name Role Phone LEATHA POWERS Unavailable PROBLEMS Type Condition ICD9-CM Code YCD57-PN Code Onset Dates Condition Status SNOMED Code Problem Gastroesophageal reflux disease, esophagitis presence not specified K21.9 Active 383098594 Problem Recurrent UTI N39.0 Active 959682332 Problem Chronic pain due to trauma G89.21 Active 462909379 Problem Chronic migraine without aura without status migrainosus, not intractable G43.709 Active 083026011 Problem Dysthymia F34.1 Active 55624934 Problem Arthritis M19.90 Active 5067729 Problem Bilateral carpal tunnel syndrome G56.03 Active 25828974 Problem Panic disorder with agoraphobia and panic attacks in partial remission F40.01 Active 01683638 ALLERGIES No Information ENCOUNTERS Encounter Location Date Diagnosis [place] [address] [address] Nov, Arthritis M19.90 and Chronic pain due to trauma G89.21 [facility] [address] [address] Oct, Chronic pain due to trauma G89.21 [facility] [address] [address] Oct, Arthritis M19.90 [facility] [address] [address] Oct, [facility] [address] [address]- [address] Oct, Arthritis M19.90 ; Chronic pain due to trauma G89.21 ; Dysthymia F34.1 and Injury of left shoulder, subsequent encounter S49.92XD [place] [address] [place] [address] 16103- 0298 Sep, [place] [address] [place] [id number] [place] [address] 32698- 8657 Sep, Acute bacterial conjunctivitis of both eyes H10.33 [place] [address] [place] [id number] [place] [address] 83769- 2546 Sep, Acute strain of neck muscle, initial encounter S16.1XXA [place] [address] [place] [id number] [place] [address] 16477- 1838 Sep, Acute recurrent maxillary sinusitis J01.01 and Chronic pain due to trauma G89.21 [place] [address] [place] [id number] [place] [address] 59772- 8011 Sep, [place] [address] [place] [id number] [place] [address] 43914- 6835 Aug, Acute non-recurrent maxillary sinusitis J01.00 [place] [address] [place] [id number] [place] [address] 86431- 6780 Aug, Arthritis M19.90 [place] [address] [place] [id number] [place] [address] 92675- 9991 Aug, Arthritis M19.90 [place] [address] [place] [id number] [place] [address] 15508- 1608 Aug, [place] [address] [place] [id number] [place] [address] 44219- 2268 Aug, Chronic pain due to trauma G89.21 ; 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 term care social worker (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 analgesic Z79.891 ; Arthritis M19.90 ; Panic disorder with agoraphobia and panic attacks in partial remission F40.01 and Chronic migraine without aura without status migrainosus, not intractable G43.709 [facility] [address] [address] Jul, 2017 Arthritis M19.90 and Panic disorder with agoraphobia and panic attacks in partial remission F40.01 [facility] [address], [place] [address] June, Arthritis M19.90 and Panic disorder with agoraphobia and panic attacks in partial remission F40.01 [facility] [address] [address] May, [facility] [address] [place] [id number] [place] [address] 34623- 7286 May, Panic disorder with agoraphobia and panic attacks in partial remission F40.01 and Arthritis M19.90 [place] [address] [place] [id number] [place] [address] 23803- 4643 Apr, Panic disorder with agoraphobia and panic attacks in partial remission F40.01 and Arthritis M19.90 [facility] [address] [place] [address] 82233- 5539 Mar, [facility] [address] [place] [id number] [place] [address] 04562- 6261 Mar, Acute nasopharyngitis J00 [place] [address] [place] [id number] [place] [address] 32375- 4543 Mar, Panic disorder with agoraphobia and panic attacks in partial remission F40.01 and Arthritis M19.90 [facility] [address] [address] Feb, Arthritis M19.90 ; Panic disorder with agoraphobia and panic attacks in partial remission F40.01 ; Dysthymia F34.1 ; Gastroesophageal reflux disease, esophagitis presence not specified K21.9 ; Recurrent UTI N39.0 and Bilateral carpal tunnel syndrome G56.03 [place] [address] [address] Feb, [facility] [address] [address] Feb, [facility] [address] [address] Mar, Bug bite W57.XXXA and Cellulitis L03.90 IMMUNIZATIONS No Known Immunizations SOCIAL HISTORY Never Assessed REASON FOR VISIT Controlled Med Refill PLAN OF CARE VITAL SIGNS MEDICATIONS Medication Instructions Dosage Frequency Start Date End Date Duration Status Hydrocodone-Acetaminophen 7.5-325 MG Orally 3 times a day 1 tablet as needed 8h Nov, 28 days Active Xanax 1 MG Orally [...]
--- OUTSIDE RECORDS SUMMARY | 2018-06-09 17:47 | XMS REPORT ---
Author Author YURIY SHAFFER Organization [facility] Address [address] [place] [address] Care Team Providers Care Hydraulic Plumber Name Role Phone YURIY SHAFFER Unavailable PROBLEMS Type Condition ICD9-CM Code LTQ26-PO Code Onset Dates Condition Status SNOMED Code Problem Gastroesophageal reflux disease, esophagitis presence not specified K21.9 Active 892512061 Problem Recurrent UTI N39.0 Active 021408987 Problem Chronic pain due to trauma G89.21 Active 411308460 Problem Chronic migraine without aura without status migrainosus, not intractable G43.709 Active 968055614 Problem Dysthymia F34.1 Active 28577448 Problem Arthritis M19.90 Active 8156500 Problem Bilateral carpal tunnel syndrome G56.03 Active 04247563 Problem Panic disorder with agoraphobia and panic attacks in partial remission F40.01 Active 35360712 ALLERGIES No Information ENCOUNTERS Encounter Location Date Diagnosis [place] [address] [address] Oct, Chronic pain due to trauma G89.21 [place] [address], [place] [address] Oct, Arthritis M19.90 [facility] [address] [place] [id number] [place] [address] 94253- 3682 Oct, [place] [address] [place] [id number] [place] [address] 06110- 9287 Oct, Arthritis M19.90 ; Chronic pain due to trauma G89.21 ; Dysthymia F34.1 and Injury of left shoulder, subsequent encounter S49.92XD [place] [address] [place] [id number] [place] [address] 05218- 8122 Sep, [place] [address] [place] [address] Sep, Acute bacterial conjunctivitis of both eyes H10.33 [place] [address] [place] [id number] [place] [address] 82696- 7964 Sep, Acute strain of neck muscle, initial encounter S16.1XXA [facility] [address] [place] [id number] [place] [address] 50034- 0646 Sep, Acute recurrent maxillary sinusitis J01.01 and Chronic pain due to trauma G89.21 [facility] [address] [place] [id number] [place] [address] 80889- 3752 Sep, [place] [address] [place] [id number] [place] [address] 87938- 2852 Aug, Acute non-recurrent maxillary sinusitis J01.00 [place] [address] [place] [id number] [place] [address] 54557- 8573 Aug, Arthritis M19.90 [place] [address] [place] [id number] [place] [address] 24368- 5241 Aug, Arthritis M19.90 [place] [address] [place] [id number] [place] [address] 36513- 9989 Aug, [facility] [address] [place] [address] 76712- 7532 Aug, Chronic pain due to trauma G89.21 ; 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 ; Arthritis M19.90 ; Panic disorder with agoraphobia and panic attacks in partial remission F40.01 and Chronic migraine without aura without status migrainosus, not intractable G43.709 [place] [address] [place] [id number] [place] [address] 83262- 0936 Jul, Arthritis M19.90 and Panic disorder with agoraphobia and panic attacks in partial remission F40.01 [facility] [address] [place] [address] 28087- 2328 June, Arthritis M19.90 and Panic disorder with agoraphobia and panic attacks in partial remission F40.01 [facility] [address] [place] [id number] [place] [address] 62105- 7859 May, [place] [address] [place] [id number] [place] [address] 88239- 2077 May, Panic disorder with agoraphobia and panic attacks in partial remission F40.01 and Arthritis M19.90 [place] [address] [place] [id number] [place] [address] 21942- 1892 Apr, Panic disorder with agoraphobia and panic attacks in partial remission F40.01 and Arthritis M19.90 [facility] [address] [place] [id number] [place] [address] 76433- 8075 Mar, [place] [address] [place] [id number] [place] [address] 32857- 9476 Mar, Acute nasopharyngitis J00 [facility] [address] [place] [id number] [place] [address] 94752- 7833 Mar, Panic disorder with agoraphobia and panic attacks in partial remission F40.01 and Arthritis M19.90 [facility] [address] [place] [id number] [place] [address] 79318- 3208 Feb, Arthritis M19.90 ; Panic disorder with agoraphobia and panic attacks in partial remission F40.01 ; Dysthymia F34.1 ; Gastroesophageal reflux disease, esophagitis presence not specified K21.9 ; Recurrent UTI N39.0 and Bilateral carpal tunnel syndrome G56.03 [facility] [address] [place] [id number] [place] [address] 60051- 4472 Feb, [facility] [address] [place] [id number] [place] [address] 18135- 4870 Feb, [facility] [address] [place] [address] 32645 -3577 Mar, Bug bite W57.XXXA and Cellulitis L03.90 IMMUNIZATIONS No Known Immunizations SOCIAL HISTORY Never Assessed REASON FOR VISIT Controlled Med Refill 09/25 PLAN OF CARE VITAL SIGNS MEDICATIONS Unknown [...]
--- OUTSIDE RECORDS SUMMARY | 2018-06-09 17:47 | XMS REPORT ---
Author Author YURIY SHAFFER Organization [facility] Address [address] [place] [address] Care Team Providers Care Hat Ironer Name Role Phone YURIY SHAFFER Unavailable PROBLEMS Type Condition ICD9-CM Code XEW97-LA Code Onset Dates Condition Status SNOMED Code Problem Gastroesophageal reflux disease, esophagitis presence not specified K21.9 Active 733894791 Problem Recurrent UTI N39.0 Active 138013637 Problem Chronic pain due to trauma G89.21 Active 397945684 Problem Chronic migraine without aura without status migrainosus, not intractable G43.709 Active 420997485 Problem Dysthymia F34.1 Active 59638154 Problem Arthritis M19.90 Active 1708124 Problem Bilateral carpal tunnel syndrome G56.03 Active 20324069 Problem Panic disorder with agoraphobia and panic attacks in partial remission F40.01 Active 15779991 ALLERGIES Substance Reaction Event Type Date Status sulfa drugs hives Drug Allergy Sep, Active Levaquin hives Drug Allergy Sep, Active Iodine rash Drug Allergy Sep, Active tape nausea Non Drug Allergy Sep, Active ENCOUNTERS Encounter Location Date Diagnosis [place] [address], [place] [address] Oct, Chronic pain due to trauma G89.21 [facility] [address] [place] [address] [address] Oct, Arthritis M19.90 [facility] [address] [place] [address] 85660- 9426 Oct, [facility] [address], [place] [address]- 0026 Oct, Arthritis M19.90 ; Chronic pain due to trauma G89.21 ; Dysthymia F34.1 and Injury of left shoulder, subsequent encounter S49.92XD [facility] [address], [place] [address]- 76[address] Sep, [facility] [address] [place] [id number] [place] [address] 32737- 3337 Sep, Acute bacterial conjunctivitis of both eyes H10.33 [facility] [address] [place] [address] 95185- 7166 Sep, Acute strain of neck muscle, initial encounter S16.1XXA [facility] [address] [place] [id number] [place] [address] 53734- 0578 Sep, Acute recurrent maxillary sinusitis J01.01 and Chronic pain due to trauma G89.21 [facility] [address] [place] [id number] [place] [address] 57557- 1335 Sep, [facility] [address] [place] [id number] [place] [address] 35214- 8172 Aug, Acute non-recurrent maxillary sinusitis J01.00 [facility] [address] [place] [address] 05296- 7150 Aug, Arthritis M19.90 [facility] [address] [place] [id number] [place] [address] 69180- 9054 Aug, Arthritis M19.90 [facility] [address], [place] [address]- 8911 Aug, [facility] [address] [place] [id number] [place] [address] 96080- 1459 Aug, Chronic pain due to trauma G89.21 ; 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 ; Arthritis M19.90 ; Panic disorder with agoraphobia and panic attacks in partial remission F40.01 and Chronic migraine without aura without status migrainosus, not intractable G43.709 [facility] [address], [place] [address]- 7898 Jul, Arthritis M19.90 and Panic disorder with agoraphobia and panic attacks in partial remission F40.01 [facility] [address] [place] [id number] [place] [address] 74182- 8978 June, Arthritis M19.90 and Panic disorder with agoraphobia and panic attacks in partial remission F40.01 [facility] [address] [place] [id number] [place] [address] 44511- 6807 May, [facility] [address] 66689- 0123 May, Panic disorder with agoraphobia and panic attacks in partial remission F40.01 and Arthritis M19.90 [place] [address] 35809- 2093 Apr, Panic disorder with agoraphobia and panic attacks in partial remission F40.01 and Arthritis M19.90 [facility] [address] [place] [id number] [place] [address] 58282- 7872 Mar, [facility] [address] [place] [id number] [place] [address] 29884- 1362 Mar, Acute nasopharyngitis J00 [place] [address] 45851- 6284 Mar, Panic disorder with agoraphobia and panic attacks in partial remission F40.01 and Arthritis M19.90 [place] [address] [place] [id number] [place] [address] 71202- 3992 Feb, Arthritis M19.90 ; Panic disorder with agoraphobia and panic attacks in partial remission F40.01 ; Dysthymia F34.1 ; Gastroesophageal reflux disease, esophagitis presence not specified K21.9 ; Recurrent UTI N39.0 and Bilateral carpal tunnel syndrome G56.03 [place] [address] [place] [id number] [place] [address] 40879- 0806 Feb, [facility] [address] [place] [id number] [place] [address] 53993- 4273 Feb, [facility] IN [facility] [address] [facility] [id number] [place] [address] Mar, Bug bite W57.XXXA and Cellulitis L03.90 IMMUNIZATIONS No Known Immunizations SOCIAL HISTORY Never Assessed REASON FOR VISIT Pain management (chronic)-talibJAMILA, both eyes hurt and are infected,back hurts and having migraines PLAN OF CARE Activity Details Follow Up 3 Months Reason: VITAL SIGNS Height 61 in 2017-09-24 Weight 106.9 lbs 2017-09-24 Temperature 97.6 degrees Fahrenheit 2017-09-24 Heart Rate 66 bpm 2017-09-24 Respiratory Rate 18 2017-09-24 Head Circumference 120/80 cm 2017-09-24 Oximetry on room air:97 % 2017-09-24 BMI 20.20 kg/m2 2017-09-24 MEDICATIONS Medication Instructions Dosage Frequency Start Date End Date Duration Status Flonase Active Celexa 20 mg Orally twice a day 1 tablet 12h Active Topamax 200 MG Orally Twice a day 1 tablet 12h Active Macrodantin 100 MG Orally Once a day 1 capsule with food or milk 24h Active Xanax 1 MG Orally Once a day 1 tablet 24h 28 days Active Zofran 4 MG Orally q 6h prn nausea 1tablet Active Hydrocodone-Acetaminophen 7.5-325 MG Orally 3 times a day 1 tablet as needed 8h Sep, 28 days Active Augmentin 875-125 MG Orally 2 times a day 1 tablet 12h Sep,Sep 10 day(s) Active RESULTS No Results PROCEDURES No Known [...]
--- OUTSIDE RECORDS SUMMARY | 2018-06-09 17:47 | XMS REPORT ---
Author Author YURIY SHAFFER Organization [facility] Address [address] [place] [address] Care Team Providers Care Glass Embosser Name Role Phone YURIY SHAFFER Unavailable PROBLEMS Type Condition ICD9-CM Code YRB83-CF Code Onset Dates Condition Status SNOMED Code Problem Gastroesophageal reflux disease, esophagitis presence not specified K21.9 Active 381116608 Problem Recurrent UTI N39.0 Active 389187152 Problem Chronic pain due to trauma G89.21 Active 501484301 Problem Chronic migraine without aura without status migrainosus, not intractable G43.709 Active 733109235 Problem Dysthymia F34.1 Active 73321304 Problem Arthritis M19.90 Active 8072629 Problem Bilateral carpal tunnel syndrome G56.03 Active 96639904 Problem Panic disorder with agoraphobia and panic attacks in partial remission F40.01 Active 69392720 ALLERGIES No Information ENCOUNTERS Encounter Location Date Diagnosis [place] [address] [address] Oct, Chronic pain due to trauma G89.21 [place] [address], [place] [address] Oct, Arthritis M19.90 [facility] [address] [place] [id number] [place] [address] 77283- 4370 Oct, [place] [address] [place] [id number] [place] [address] 57797- 1089 Oct, Arthritis M19.90 ; Chronic pain due to trauma G89.21 ; Dysthymia F34.1 and Injury of left shoulder, subsequent encounter S49.92XD [place] [address] [place] [id number] [place] [address] 03096- 4622 Sep, [place] [address] [place] [address], [place] [address]- 8128 Sep, Acute bacterial conjunctivitis of both eyes H10.33 [place] [address] [place] [id number] [place] [address] 54882- 8438 Sep, Acute strain of neck muscle, initial encounter S16.1XXA [facility] [address] [place] [id number] [place] [address] 86266- 3446 Sep, Acute recurrent maxillary sinusitis J01.01 and Chronic pain due to trauma G89.21 [facility] [address] [place] [id number] [place] [address] 45895- 5732 Sep, [place] [address] [place] [id number] [place] [address] 64662- 0971 Aug, Acute non-recurrent maxillary sinusitis J01.00 [place] [address] [place] [id number] [place] [address] 64889- 1024 Aug, Arthritis M19.90 [place] [address] [place] [id number] [place] [address] 37092- 3738 Aug, Arthritis M19.90 [place] [address] [place] [id number] [place] [address] 40909- 1545 Aug, [facility] [address] [place] [address] 41345- 0462 Aug, Chronic pain due to trauma G89.21 ; long term care social worker (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 analgesic Z79.891 ; Arthritis M19.90 ; Panic disorder with agoraphobia and panic attacks in partial remission F40.01 and Chronic migraine without aura without status migrainosus, not intractable G43.709 [place] [address] [place] [id number] [place] [address] 79506- 2084 Jul, Arthritis M19.90 and Panic disorder with agoraphobia and panic attacks in partial remission F40.01 [facility] [address] [place] [address] 33779- 9626 June, Arthritis M19.90 and Panic disorder with agoraphobia and panic attacks in partial remission F40.01 [facility] [address] [place] [id number] [place] [address] 66774- 4387 May, [place] [address] [place] [id number] [place] [address] 11870- 3378 May, Panic disorder with agoraphobia and panic attacks in partial remission F40.01 and Arthritis M19.90 [place] [address] [place] [id number] [place] [address] 59643- 4940 Apr, Panic disorder with agoraphobia and panic attacks in partial remission F40.01 and Arthritis M19.90 [facility] [address] [place] [id number] [place] [address] 81532- 4285 Mar, [place] [address] [place] [id number] [place] [address] 87592- 0074 Mar, Acute nasopharyngitis J00 [facility] [address] [place] [id number] [place] [address] 76107- 6788 Mar, Panic disorder with agoraphobia and panic attacks in partial remission F40.01 and Arthritis M19.90 [facility] [address] [place] [id number] [place] [address] 78095- 8129 Feb, Arthritis M19.90 ; Panic disorder with agoraphobia and panic attacks in partial remission F40.01 ; Dysthymia F34.1 ; Gastroesophageal reflux disease, esophagitis presence not specified K21.9 ; Recurrent UTI N39.0 and Bilateral carpal tunnel syndrome G56.03 [facility] [address] [place] [id number] [place] [address] 73622- 2808 Feb, [facility] [address] [place] [id number] [place] [address] 99016- 9973 Feb, [facility] WALK IN [facility] [address] [place] [address] 29292 -5013 Mar, Bug bite W57.XXXA and Cellulitis L03.90 IMMUNIZATIONS No Known Immunizations SOCIAL HISTORY Never Assessed REASON FOR VISIT Bed Side Manner PLAN OF CARE VITAL SIGNS MEDICATIONS Medication Instructions Dosage Frequency Start Date End Date Duration Status Hydrocodone-Acetaminophen 7.5-325 MG Orally 3 times a day 1 tablet as needed 8h 11 Oct, 2017 28 days Active RESULTS No Results PROCEDURES [...]
--- OUTSIDE RECORDS SUMMARY | 2018-06-09 17:48 | XMS REPORT ---
Author Author YURIY SHAFFER Organization [facility] Address [address] [place] [address] Care Team Providers Care Supply Technician Name Role Phone YURIY SHAFFER Unavailable PROBLEMS Type Condition ICD9-CM Code DUN76-SK Code Onset Dates Condition Status SNOMED Code Problem Gastroesophageal reflux disease, esophagitis presence not specified K21.9 Active 533489509 Problem Recurrent UTI N39.0 Active 658748830 Problem Chronic pain due to trauma G89.21 Active 447849719 Problem Chronic migraine without aura without status migrainosus, not intractable G43.709 Active 930652596 Problem Dysthymia F34.1 Active 84110789 Problem Arthritis M19.90 Active 1351499 Problem Bilateral carpal tunnel syndrome G56.03 Active 94663819 Problem Panic disorder with agoraphobia and panic attacks in partial remission F40.01 Active 91250557 ALLERGIES Substance Reaction Event Type Date Status sulfa drugs hives Drug Allergy Aug, Active Levaquin hives Drug Allergy Aug, Active Iodine rash Drug Allergy Aug, Active tape nausea Non Drug Allergy Aug, Active ENCOUNTERS Encounter Location Date Diagnosis [place] [address] [address] Oct, [place] [address] [place] [address] 16587- 4778 Sep, [place] [address] [place] [address] 72263- 1794 Sep, Acute bacterial conjunctivitis of both eyes H10.33 [place] [address] [place] [address] 84912- 9101 Sep, Acute strain of neck muscle, initial encounter S16.1XXA [place] [address] [place] [id number] [place] [address] 59833- 6937 Sep, Acute recurrent maxillary sinusitis J01.01 and Chronic pain due to trauma G89.21 [place] [address] [place] [address] 51464- 0716 Sep, [facility] [address] [place] [id number] [place] [address] 94137- 2734 Aug, Acute non-recurrent maxillary sinusitis J01.00 [facility] [address] [place] [address] [id number] [place] [address] 31626- 6961 Aug, Arthritis M19.90 [facility] [address] [place] [address] 73919- 8980 Aug, Arthritis M19.90 [place] [address] [place] [id number] [place] [address] 03316- 3828 Aug, [place] [address] [place] [id number] [place] [address] 69860- 1103 Aug, Chronic pain due to trauma G89.21 ; manager terminal (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 analgesic Z79.891 ; Arthritis M19.90 ; Panic disorder with agoraphobia and panic attacks in partial remission F40.01 and Chronic migraine without aura without status migrainosus, not intractable G43.709 [place] [address], [place] [address] Jul, Arthritis M19.90 and Panic disorder with agoraphobia and panic attacks in partial remission F40.01 [place] [address] [place] [address] 58913- 7644 June, Arthritis M19.90 and Panic disorder with agoraphobia and panic attacks in partial remission F40.01 [place] [address] [place] [id number] [place] [address] 81116- 3953 May, [place] [address] [place] [address] 28038- 9123 May, Panic disorder with agoraphobia and panic attacks in partial remission F40.01 and Arthritis M19.90 [facility] [address] [id number] [place] [address] 88826- 0387 Apr, Panic disorder with agoraphobia and panic attacks in partial remission F40.01 and Arthritis M19.90 [facility] [address] [id number] [place] [address] 62567- 0493 Mar, [facility] [address] [place] [id number]- 1106 Mar, Acute nasopharyngitis J00 [place] [address] 46946- 0854 Mar, Panic disorder with agoraphobia and panic attacks in partial remission F40.01 and Arthritis M19.90 [place] [address] 14439- 5144 Feb, Arthritis M19.90 ; Panic disorder with agoraphobia and panic attacks in partial remission F40.01 ; Dysthymia F34.1 ; Gastroesophageal reflux disease, esophagitis presence not specified K21.9 ; Recurrent UTI N39.0 and Bilateral carpal tunnel syndrome G56.03 [place] [address] [place] [id number] [place] [address] 78453- 3346 Feb, [facility] [address] [id number] [place] [address] 17966- 1239 Feb, [facility] [address] [id number] [place] [address] 40356 -8923 Mar, Bug bite W57.XXXA and Cellulitis L03.90 IMMUNIZATIONS No Known Immunizations SOCIAL HISTORY Never Assessed REASON FOR VISIT Pain management (chronic) -MICKY Petersen MA PLAN OF CARE Activity Details Follow Up 3 Months Reason: VITAL SIGNS Height 61 in 2017-08-19 Weight 109.3 lbs 2017-08-19 Temperature 98.6 degrees Fahrenheit 2017-08-19 Heart Rate 60 bpm 2017-08-19 Respiratory Rate 18 2017-08-19 Oximetry on room air:98 % 2017-08-19 BMI 20.65 kg/m2 2017-08-19 Blood pressure systolic 110 mmHg 2017-08-19 Blood pressure diastolic 68 mmHg 2017-08-19 MEDICATIONS Medication Instructions Dosage Frequency Start Date End Date Duration Status Zofran 4 MG Orally q 6h prn nausea 1tablet Active Flonase Active Topamax 200 MG Orally Twice a day 1 tablet 12h Active Celexa 20 mg Orally twice a day 1 tablet 12h Active Xanax 1 MG Orally Once a day 1 tablet 24h 28 days Active Hydrocodone-Acetaminophen 7.5-325 MG Orally 3 times a day 1 tablet as needed 8h 14 Jul, 2017 28 days Active RESULTS No Results PROCEDURES Procedure Date Ordered Result Body Site 09 PANEL (PROFILE 1) August 19, 2017 INSTRUCTIONS MEDICATIONS ADMINISTERED No Known Medications [...]
--- OUTSIDE RECORDS SUMMARY | 2018-06-09 17:48 | XMS REPORT ---
Author Author YURIY SHAFFER Organization [facility] Address [address] [place] [address] Care Team Providers Care Oil Mixer Name Role Phone YURIY SHAFFER Unavailable PROBLEMS Type Condition ICD9-CM Code KQN89-MV Code Onset Dates Condition Status SNOMED Code Problem Gastroesophageal reflux disease, esophagitis presence not specified K21.9 Active 740873073 Problem Recurrent UTI N39.0 Active 889936160 Problem Chronic pain due to trauma G89.21 Active 344260090 Problem Chronic migraine without aura without status migrainosus, not intractable G43.709 Active 411071073 Problem Dysthymia F34.1 Active 85020812 Problem Arthritis M19.90 Active 8222188 Problem Bilateral carpal tunnel syndrome G56.03 Active 10517208 Problem Panic disorder with agoraphobia and panic attacks in partial remission F40.01 Active 74717245 ALLERGIES No Information ENCOUNTERS Encounter Location Date Diagnosis [place] [address] [place] [address] 58990- 2032 Oct, [place] [address] [place] [address] 32736- 4842 Sep, [place] [address] [place] [address] 98258- 2956 Sep, Acute bacterial conjunctivitis of both eyes H10.33 [place] [address] [place] [address] 64259- 8610 Sep, Acute strain of neck muscle, initial encounter S16.1XXA [place] [address] [place] [address] 78931- 9064 14 Sep, 2017 Acute recurrent maxillary sinusitis J01.01 and Chronic pain due to trauma G89.21 [place] [address] [place] [id number] [place] [address] 67667- 0675 Sep, [facility] [address], [place] [address] 3767 Aug, Acute non-recurrent maxillary sinusitis J01.00 [facility] [address], [place] [address]- 7058 Aug, Arthritis M19.90 [facility] [address], [place] [address] 1288 Aug, Arthritis M19.90 [facility] [address] [place] [id number], [place] [address]- 1635 Aug, [facility] [address], [place] [address] 4706 Aug, Chronic pain due to trauma G89.21 ; USP (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 analgesic Z79.891 ; Arthritis M19.90 ; Panic disorder with agoraphobia and panic attacks in partial remission F40.01 and Chronic migraine without aura without status migrainosus, not intractable G43.709 [facility] [address], [place] [address]- 4364 Jul, Arthritis M19.90 and Panic disorder with agoraphobia and panic attacks in partial remission F40.01 [facility] [address] [place] [id number], [place] [address] 3570 June, Arthritis M19.90 and Panic disorder with agoraphobia and panic attacks in partial remission F40.01 [facility] [address] [place] [id number], [place] [address]- 2248 May, [facility] [address], [place] [address]- 2895 May, Panic disorder with agoraphobia and panic attacks in partial remission F40.01 and Arthritis M19.90 [facility] [address] [place] [id number], [place] [address]- 8044 Apr, Panic disorder with agoraphobia and panic attacks in partial remission F40.01 and Arthritis M19.90 [facility] [address], [place] [address]- 0015 Mar, [place] [address] [place] [id number] [place] [address] 40030- 9406 Mar, Acute nasopharyngitis J00 [place] [address] [place] [address] 16320- 3000 Mar, Panic disorder with agoraphobia and panic attacks in partial remission F40.01 and Arthritis M19.90 [facility] [address] [place] [id number] [place] [address] 86189- 1867 Feb, Arthritis M19.90 ; Panic disorder with agoraphobia and panic attacks in partial remission F40.01 ; Dysthymia F34.1 ; Gastroesophageal reflux disease, esophagitis presence not specified K21.9 ; Recurrent UTI N39.0 and Bilateral carpal tunnel syndrome G56.03 [facility] [address] [place] [address] 28900- 6793 Feb, [facility] [address] [place] [address] 36480- 7128 Feb, [facility] [address] [place] [address] 85975 -2104 Mar, Bug bite W57.XXXA and Cellulitis L03.90 IMMUNIZATIONS No Known Immunizations SOCIAL HISTORY Never Assessed REASON FOR VISIT Xanax PLAN OF CARE VITAL SIGNS MEDICATIONS Medication [...]
--- OUTSIDE RECORDS SUMMARY | 2018-06-09 17:48 | XMS REPORT ---
Author Author YURIY SHAFFER Organization [facility] Address [address] [place] [address] Care Team Providers Care Tar Man Name Role Phone YURIY SHAFFER Unavailable PROBLEMS Type Condition ICD9-CM Code DZY52-IA Code Onset Dates Condition Status SNOMED Code Problem Gastroesophageal reflux disease, esophagitis presence not specified K21.9 Active 335459623 Problem Recurrent UTI N39.0 Active 418597357 Problem Chronic pain due to trauma G89.21 Active 538330657 Problem Chronic migraine without aura without status migrainosus, not intractable G43.709 Active 118739450 Problem Dysthymia F34.1 Active 58876957 Problem Arthritis M19.90 Active 9997880 Problem Bilateral carpal tunnel syndrome G56.03 Active 62312711 Problem Panic disorder with agoraphobia and panic attacks in partial remission F40.01 Active 26235469 ALLERGIES No Information ENCOUNTERS Encounter Location Date Diagnosis [place] [address] 25[address]- [address]21 10 Oct, 2017 [place] [address] [place] [id number] [place] [address] 55836- 7011 Sep, Acute bacterial conjunctivitis of both eyes H10.33 [place] [address] [place] [id number] [place] [address] 10871- 8246 Sep, Acute strain of neck muscle, initial encounter S16.1XXA [place] [address] 53498- 4856 Sep, Acute recurrent maxillary sinusitis J01.01 and Chronic pain due to trauma G89.21 [place] [address] [place] [id number] [place] [address] 61844- 3300 Sep, [place] [address] 81880- 4982 Aug, Acute non-recurrent maxillary sinusitis J01.00 [place] [address] [place] [address] 64200- 7264 Aug, Arthritis M19.90 [facility] [address], [place] [address]- 0788 Aug, Arthritis M19.90 [facility] [address], [place] [address]- 5288 Aug, [place] [address] [place] [address] 33912- 7551 Aug, Chronic pain due to trauma G89.21 ; intermediate accountant (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 analgesic Z79.891 ; Arthritis M19.90 ; Panic disorder with agoraphobia and panic attacks in partial remission F40.01 and Chronic migraine without aura without status migrainosus, not intractable G43.709 [place] [address] [place] [id number] [place] [address] 41886- 0230 Jul, Arthritis M19.90 and Panic disorder with agoraphobia and panic attacks in partial remission F40.01 [place] [address] [place] [address] 82604- 1862 June, Arthritis M19.90 and Panic disorder with agoraphobia and panic attacks in partial remission F40.01 [place] [address], [place] [address]- 1055 May, [place] [address] [place] [address] 85634- 5226 May, Panic disorder with agoraphobia and panic attacks in partial remission F40.01 and Arthritis M19.90 [place] [address] [place] [address] 40533- 6163 Apr, Panic disorder with agoraphobia and panic attacks in partial remission F40.01 and Arthritis M19.90 [place] [address], [place] [address]- 7916 Mar, [facility] [address], [place] [address]- 0723 Mar, Acute nasopharyngitis J00 [facility] [address] [place] [address] 44579- 0405 Mar, Panic disorder with agoraphobia and panic attacks in partial remission F40.01 and Arthritis M19.90 [facility] [address] [place] [address] 86776- 4907 Feb, Arthritis M19.90 ; Panic disorder with agoraphobia and panic attacks in partial remission F40.01 ; Dysthymia F34.1 ; Gastroesophageal reflux disease, esophagitis presence not specified K21.9 ; Recurrent UTI N39.0 and Bilateral carpal tunnel syndrome G56.03 [place] [address] [place] [address] 94250- 3889 Feb, [facility] [address] [place] [address] 45473- 3126 Feb, [facility] [address] [place] [address] 95296 -6802 Mar, Bug bite W57.XXXA and Cellulitis L03.90 IMMUNIZATIONS No Known Immunizations SOCIAL HISTORY Never Assessed REASON FOR VISIT Hydrocodone and alprazolam due 07/22- on hold PLAN OF CARE VITAL SIGNS MEDICATIONS Medication [...]
--- OUTSIDE RECORDS SUMMARY | 2018-06-09 17:48 | XMS REPORT ---
Author Author YURIY SHAFFER Organization [facility] Address [address] [place] [address] Care Team Providers Care Dust Mill Operator Name Role Phone YURIY SHAFFER Unavailable PROBLEMS Type Condition ICD9-CM Code OQT23-LQ Code Onset Dates Condition Status SNOMED Code Problem Gastroesophageal reflux disease, esophagitis presence not specified K21.9 Active 365451335 Problem Recurrent UTI N39.0 Active 099887578 Problem Chronic pain due to trauma G89.21 Active 913791086 Problem Chronic migraine without aura without status migrainosus, not intractable G43.709 Active 128415332 Problem Dysthymia F34.1 Active 70216413 Problem Arthritis M19.90 Active 1807091 Problem Bilateral carpal tunnel syndrome G56.03 Active 45095034 Problem Panic disorder with agoraphobia and panic attacks in partial remission F40.01 Active 09455573 ALLERGIES No Information ENCOUNTERS Encounter Location Date Diagnosis [place] [address] [place] [address] 56454- 2899 Oct, [place] [address] [place] [address] 84996- 4868 Sep, [place] [address] [place] [address] 21174- 7370 Sep, Acute bacterial conjunctivitis of both eyes H10.33 [place] [address] [place] [address] 65566- 5698 Sep, Acute strain of neck muscle, initial encounter S16.1XXA [place] [address] [place] [address] 35415- 3140 14 Sep, 2017 Acute recurrent maxillary sinusitis J01.01 and Chronic pain due to trauma G89.21 [place] [address] [place] [id number] [place] [address] 66747- 4580 Sep, [facility] [address] [address]- 0307 Aug, Acute non-recurrent maxillary sinusitis J01.00 [facility] [address] [address]- 8868 Aug, Arthritis M19.90 [facility] [address] [address]- 2501 Aug, Arthritis M19.90 [facility] [address] [place] [address]- 9720 Aug, [facility] [address] [address]- 4400 Aug, Chronic pain due to trauma G89.21 ; FPC (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 analgesic Z79.891 ; Arthritis M19.90 ; Panic disorder with agoraphobia and panic attacks in partial remission F40.01 and Chronic migraine without aura without status migrainosus, not intractable G43.709 [facility] [address] [address]- 1374 Jul, Arthritis M19.90 and Panic disorder with agoraphobia and panic attacks in partial remission F40.01 [facility] [address] [place] [address] [address]- 0436 June, Arthritis M19.90 and Panic disorder with agoraphobia and panic attacks in partial remission F40.01 [facility] [address] [place] [address]- 4146 May, [facility] [address] [address]- 4021 May, Panic disorder with agoraphobia and panic attacks in partial remission F40.01 and Arthritis M19.90 [facility] [address] [place] [address]- 5458 Apr, Panic disorder with agoraphobia and panic attacks in partial remission F40.01 and Arthritis M19.90 [facility] [address] [address]- 1358 Mar, [place] [address] [place] [address] [id number] [place] [address] 91999- 6373 Mar, Acute nasopharyngitis J00 [place] [address] [place] [id number] [place] [address] 99154- 3513 Mar, Panic disorder with agoraphobia and panic attacks in partial remission F40.01 and Arthritis M19.90 [facility] [address] [id number] [place] [address] 77856- 9044 Feb, Arthritis M19.90 ; Panic disorder with agoraphobia and panic attacks in partial remission F40.01 ; Dysthymia F34.1 ; Gastroesophageal reflux disease, esophagitis presence not specified K21.9 ; Recurrent UTI N39.0 and Bilateral carpal tunnel syndrome G56.03 [facility] [address] [place] [address] 88141- 6526 Feb, [facility] [address] [id number] [place] [address] 95143- 6314 Feb, [facility] [address] [place] [address] 46710 -3336 Mar, Bug bite W57.XXXA and Cellulitis L03.90 IMMUNIZATIONS No Known Immunizations SOCIAL HISTORY Never Assessed REASON FOR VISIT Hydrocodone refill PLAN OF CARE VITAL SIGNS MEDICATIONS Medication Instructions Dosage Frequency Start Date End Date Duration Status Hydrocodone-Acetaminophen 7.5-325 MG Orally 3 times a day 1 tablet as needed 8h Aug, 28 days Active RESULTS No Results PROCEDURES [...]
--- OUTSIDE RECORDS SUMMARY | 2018-06-09 17:48 | XMS REPORT ---
Author Author YURIY SHAFFER Organization [facility] Address [address] [place] [address] Care Team Providers [employer] Fabricator Name Role Phone YURIY SHAFFER Unavailable PROBLEMS Type Condition ICD9-CM Code PPL11-ML Code Onset Dates Condition Status SNOMED Code Problem Gastroesophageal reflux disease, esophagitis presence not specified K21.9 Active 224765966 Problem Recurrent UTI N39.0 Active 886034667 Problem Chronic pain due to trauma G89.21 Active 746002148 Problem Chronic migraine without aura without status migrainosus, not intractable G43.709 Active 006283096 Problem Dysthymia F34.1 Active 60642902 Problem Arthritis M19.90 Active 0559328 Problem Bilateral carpal tunnel syndrome G56.03 Active 79139357 Problem Panic disorder with agoraphobia and panic attacks in partial remission F40.01 Active 68806890 ALLERGIES No Information ENCOUNTERS Encounter Location Date Diagnosis [place] [id number] [place] [address] Oct, [place] [address] [place] [address] Sep, [place] [id number] [place] [address] Sep, Acute bacterial conjunctivitis of both eyes H10.33 [place] [address] [place] [address] Sep, Acute strain of neck muscle, initial encounter S16.1XXA [place] [address] [place] [address] 14792- [address]48 14 Sep, 2017 Acute recurrent maxillary sinusitis J01.01 and Chronic pain due to trauma G89.21 [place] [address] [place] [id number] [place] [address] Sep, [facility] [address], [place] [address] Aug, Acute non-recurrent maxillary sinusitis J01.00 [facility] [address] [address] Aug, Arthritis M19.90 [facility] [address] [address] Aug, Arthritis M19.90 [facility] [address] [place] [id number] [address] Aug, [facility] [address], [place] [address] Aug, Chronic pain due to trauma G89.21 ; [facility] (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 analgesic Z79.891 ; Arthritis M19.90 ; Panic disorder with agoraphobia and panic attacks in partial remission F40.01 and Chronic migraine without aura without status migrainosus, not intractable G43.709 [facility] [address] [address] Jul, Arthritis M19.90 and Panic disorder with agoraphobia and panic attacks in partial remission F40.01 [facility] [address] [id number] [address] June, Arthritis M19.90 and Panic disorder with agoraphobia and panic attacks in partial remission F40.01 [facility] [address] [id number], [place] [address] May, [facility] [address] [place] [address] May, Panic disorder with agoraphobia and panic attacks in partial remission F40.01 and Arthritis M19.90 [facility] [address] [place] [id number], [place] [address] Apr, Panic disorder with agoraphobia and panic attacks in partial remission F40.01 and Arthritis M19.90 [facility] [address] [address] Mar, [place] [address] [place] [id number] [place] [address] Mar, Acute nasopharyngitis J00 [place] [address] [place] [id number] [place] [address]- [address] Mar, Panic disorder with agoraphobia and panic attacks in partial remission F40.01 and Arthritis M19.90 [facility] [address] [place] [address] [id number] [place] [address] Feb, Arthritis M19.90 ; Panic disorder with agoraphobia and panic attacks in partial remission F40.01 ; Dysthymia F34.1 ; Gastroesophageal reflux disease, esophagitis presence not specified K21.9 ; Recurrent UTI N39.0 and Bilateral carpal tunnel syndrome G56.03 [facility] [address] [place] [address] 79[address] Feb, [facility] [id number] [place] [address] Feb, [facility] [id number] [place] [address] Mar, Bug bite W57.XXXA and Cellulitis L03.90 [...]
--- OUTSIDE RECORDS SUMMARY | 2018-06-09 17:49 | XMS REPORT | Continuity of Care Document ---
Author Organization Unknown Address Unknown Allergies Active Description Code Type Severity Reaction Onset Reported/Identified Relationship to Patient Clinical Status Yes Sulfa (Sulfonamide Antibiotics) [id number] Drug Allergy Mild N/A 2007 Yes adhesive [id number] Drug Allergy Unknown N/A 07/29/2007 Yes iodine [id number] Drug Allergy Unknown N/A 07/29/2007 Yes levofloxacin [id number] Drug Allergy Moderate RASH 07/31/2007 Yes nitrofurantoin [id number] Drug Allergy Mild N/A 01/11/2009 Medications There is no data. 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 01/13/2017 RAE INES PRINCE Ot Z87.440 PERSONAL HISTORY OF URINARY (TRACT) INFE 01/13/2017 INES MCBRIDE DO Ot Z87.59 PERSONAL HISTORY OF COMP OF PREG, CHLDBR 01/13/2017 INES MCBRIDE DO Ot Z90.49 ACQUIRED ABSENCE OF OTHER SPECIFIED PART 01/13/2017 INES MCBRIDE DO Ot Z90.710 ACQUIRED ABSENCE OF BOTH CERVIX AND UTER 01/19/2017 RAE INES [place]field Ot F41.9 ANXIETY DISORDER, UNSPECIFIED 01/19/2017 RAE INES K Ot G43.909 MIGRAINE, UNSP, NOT INTRACTABLE, WITHOUT 01/19/2017 RAE INES [place] Ot H10.9 UNSPECIFIED CONJUNCTIVITIS 01/19/2017 RAE INES [place] Ot H57.11 OCULAR PAIN, RIGHT EYE 01/19/2017 RAE INES [place] Ot J32.9 CHRONIC SINUSITIS, UNSPECIFIED 01/19/2017 RAE INES [place] Ot J45.909 UNSPECIFIED ASTHMA, UNCOMPLICATED 01/19/2017 RAE INES [place] Ot 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 01/19/2017 RAE PRINCE INES [place] Ot Z87.440 PERSONAL HISTORY OF URINARY (TRACT) INFE 01/19/2017 INES MCBRIDE DO Ot Z87.59 PERSONAL HISTORY OF COMP OF PREG, CHLDBR 01/19/2017 INES MCBRIDE DO Ot Z90.49 ACQUIRED ABSENCE OF OTHER SPECIFIED PART 01/19/2017 INES MCBRIDE DO Ot Z90.710 ACQUIRED ABSENCE OF BOTH CERVIX AND UTER 05/22/2017 KALLIE MUNSON Ot V76.12 OTH SCREEN MAMMO-MALIGN NEOPLASM OF DAVID 05/23/2017 KEVIN FLAHERTY MD K Ot G43.909 MIGRAINE, UNSP, NOT INTRACTABLE, WITHOUT 09/29/2017 KALLIE MUNSON Ot V76.12 OTH SCREEN MAMMO-MALIGN NEOPLASM OF DAVID 09/29/2017 KEVIN FLAHERTY MD Ot G43.909 MIGRAINE, UNSP, NOT INTRACTABLE, WITHOUT 10/01/2017 CORI MARTINEZ, PO Goff Ot F41.9 ANXIETY DISORDER, UNSPECIFIED 10/01/2017 PO PERSAUD MD Ot G43.909 MIGRAINE, UNSP, NOT INTRACTABLE, WITHOUT 10/01/2017 PO PERSAUD MD Ot J45.909 UNSPECIFIED ASTHMA, UNCOMPLICATED 10/01/2017 PO PERSAUD MD Ot M25.512 PAIN IN LEFT SHOULDER 10/01/2017 PO PERSAUD MD Ot S42.92XA FRACTURE OF LEFT SHOULDER GIRDLE, PART U 10/01/2017 PO PERSAUD MD Ot S72.002A FRACTURE OF UNSP PART OF NECK OF LEFT FE 10/01/2017 PO PERSAUD MD Ot W13.1XXA FALL FROM, OUT OF OR THROUGH BRIDGE, INI 10/01/2017 PO PERSAUD MD Ot Y92.89 [facility] PL[facility] THE PLACE OF OCCURRENCE OF 10/01/2017 PO PERSAUD MD Ot Z79.51 HEAVY FORGING MACHINE OPERATOR (CURRENT) USE OF INHALED STERO 10/01/2017 PO PERSAUD MD Ot Z87.440 PERSONAL HISTORY OF URINARY (TRACT) INFE 10/01/2017 PO PERSAUD MD Ot Z87.59 PERSONAL HISTORY OF COMP OF PREG, CHLDBR 10/01/2017 PO PERSAUD MD Ot Z88.2 ALLERGY STATUS TO SULFONAMIDES STATUS 10/01/2017 PO PERSAUD MD Ot Z88.8 ALLERGY STATUS TO OTH DRUG/MEDS/BIOL SUB 10/01/2017 PO PERSAUD MD Ot Z90.710 ACQUIRED ABSENCE OF BOTH CERVIX AND UTER 10/01/2017 PO PERSAUD MD Ot Z90.81 ACQUIRED ABSENCE OF SPLEEN 10/01/2017 PO PERSAUD MD Ot Z90.89 ACQUIRED ABSENCE OF OTHER ORGANS 10/01/2017 PO PERSAUD MD Ot Z91.041 RADIOGRAPHIC DYE ALLERGY STATUS 10/01/2017 PO PERSAUD MD Ot Z91.048 OTHER NONMEDICINAL SUBSTANCE ALLERGY STA 12/12/2017 KIESHA MARTINEZ, PAIGE Kaufman Ot S42.255D NONDISP FX OF GREATER TUBEROSITY OF L HU 12/12/2017 PAIGE POP MD Ot S43.432A SUPERIOR GLENOID LABRUM LESION OF LEFT S 12/12/2017 PAIGE POP MD Ot W19.XXXD UNSPECIFIED FALL, SUBSEQUENT ENCOUNTER Procedures There is no data. Results Test [...] plasma albumin measurement (mass/volume) 4.5 g/dL 3.2-4.5 PANEL (PROFILE 1) - 08/19/17 11:02 Creatinine [...] NEGATIVE ng/mL <25 medMATCH Phencyclidine CONSISTENT NRG ESR/SED RATE - 05/09/18 13:46 SED RATE BY MODIFIED WESTERGREN 2 mm/h < OR=20 CRP - 05/09/18 13:46 C-REACTIVE PROTEIN 0.7 mg/L <8.0 RA (RHEUMATOID) FACTOR - 05/09/18 13:46 RHEUMATOID FACTOR <14 IU/mL <14 GÉNESIS - 05/09/18 13:46 GÉNESIS SCREEN, IFA NEGATIVE NEGATIVE Encounters ACCT No. Visit Date/Time Discharge Status Pt. Type Provider Facility Loc./Unit Complaint [id number] 02/10/2018 11:41:00 02/10/2018 23:59:59 CLS Preadmit PAIGE POP MD [facility] RAD ROTATOR CUFF TEAR PARTIAL LEFT [id number] 12/09/2017 12:58:00 12/09/2017 23:59:59 CLS Outpatient PAIGE POP MD [facility] RAD ROTATOR CUFF TEAR PARTIAL LEFT [id number] 09/28/2017 13:37:00 09/28/2017 16:02:00 DIS Outpatient PO PERSAUD MD [facility] ER FELL OFF BRIDGE/PAIN [id number] 05/22/2017 10:27:00 05/22/2017 23:59:59 CLS Outpatient KEVIN FLAHERTY MD [facility] LAB MIGRAINE [id number] 01/13/2017 20:37:00 01/13/2017 21:23:00 DIS Emergency INES MCBRIDE DO [facility] ER VISION ISSUES [id number] 10/29/2014 07:09:00 10/29/2014 23:59:59 CLS Outpatient KALLIE MUNSON [facility] RAD SCREENING [id number] 06/16/2018 15:00:00 PEN Preadmit NITISH BEARD DO [facility] RAD SCREENING [id number] 10/29/2014 07:08:00 Document Registration [id number] 03/16/2018 00:00:00 03/16/2018 23:59:00 DIS Outpatient ANT ELLIS [id number] 10/29/2014 07:09:49 ACT Document Registration [id number] 03/12/2018 09:02:11 03/12/2018 23:59:59 CLS Outpatient Ant Ellis [id number] 05/09/2018 13:00:00 05/09/2018 23:59:59 CLS Outpatient EDMUND MARTINEZ, YURIY [facility] [id number] 05/09/2018 13:00:00 Document Registration [id number] 08/19/2017 10:00:00 Document Registration
[2018-06-09 17:57] VITALS: BP 132/84
== END 2018-06-09 17:57 | disposition home or self-care (01) ==
LOC: EDUNIT# 17:06 → ER 17:07
DX: S05.01XA Injury of conjunctiva and corneal abrasion without foreign body, right eye, initial encounter (principal); J45.909 Unspecified asthma, uncomplicated; G43.909 Migraine, unspecified, not intractable, without status migrainosus; G62.9 Polyneuropathy, unspecified; F41.9 Anxiety disorder, unspecified; Z88.2 Allergy status to sulfonamides; Z88.8 Allergy status to other drugs, medicaments and biological substances; Z87.440 Personal history of urinary (tract) infections; Z91.041 Radiographic dye allergy status; Z91.048 Other nonmedicinal substance allergy status; Z79.51 Long term (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 of inhaled steroids; Z98.890 Other specified postprocedural states; Z90.710 Acquired absence of both cervix and uterus; Z90.81 Acquired absence of spleen
CPT/HCPCS: 99283

== ENCOUNTER 2019-04-14 20:09 | Inpatient (IN) | payer BC, OTHER ==
[~2019-04-14] VITALS: Ht 154.9 cm; Wt 52.8 kg
[2019-04-14] MEDS ORDERED: FLUORESCEIN (FLUOR-I-STRIPS) 1 MG STRP ONE (20:17)
--- NOTE | 2019-04-14 20:23 | ED EENT ---
History of Present Illness General Stated Complaint: EYE IRRITATION, DIAG WITH FLU B Source: patient, spouse Exam Limitations: no limitations History of Present Illness Date Seen by Provider: Apr 14, 2019 Time Seen by Provider: 20:05 Initial Comments Patient presents to ER by private conveyance from home with chief complaint that she's been having some increasing pain and itching in her right eye. 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 She is on cyclosporine. She is seeing , ophthalmology in [place]. She is also known locally to Dr. Herr. She was diagnosed yesterday with influenza B. She's having mild mattering of the right eye. She is on a steroid eyedrop but not on an antibiotic drop. She was last on antibiotic drops for her eye about 2 weeks ago. She's having photophobia and a moderate amount of pain modestly reduced by 7.5 mg of hydrocodone about 2 hours ago. Allergies and Home Medications Allergies Coded Allergies: levofloxacin (Verified Allergy, Intermediate, RASH, 04/14/19) Sulfa (Sulfonamide Antibiotics) (Verified Allergy, Mild, 04/14/19) nitrofurantoin (Unverified Allergy, Mild, 04/14/19) adhesive (Verified Allergy, Unknown, 04/14/19) iodine (Verified Allergy, Unknown, 04/14/19) Home Medications Cefdinir 300 Mg Capsule, 300 MG PO BID FOR INFECTION Prescribed by: INES MCBRIDE on 01/13/172113 Fluticasone Propionate 9.9 Ml [place].susp, 2 SPRAYS NS BID Prescribed by: INES MCBRIDE on 01/13/172113 Loratadine/Pseudoephedrine 1 Each Tab.er.12h, 1 EACH PO BID Prescribed by: INES MCBRIDE on 01/13/172113 Patient Home Medication List Home Medication List Reviewed: Yes Review of Systems Review of Systems Constitutional: chills, fever, malaise Eyes: See HPI; Denies Blindness, Denies Blurred Vision, Denies Drainage; Inflammation, Pain, Photophobia Ears: Denies Dizziness, Denies Pain Nose: denies clots, denies congestion Mouth: denies clots, denies pain Throat: denies pain, denies swelling Respiratory: cough; No phlegm, No short of breath Cardiovascular: No chest pain, No edema All Other Systems Reviewed Negative Unless Noted: Yes Past Snjddsk-Iqpuyf-Ehmzth Hx Patient Social History Alcohol Use: Denies Use Recreational Drug Use: No Smoking Status: Never a Smoker 2nd Hand Smoke Exposure: No Recent Foreign Travel: No Contact w/Someone Who Travel: No Recent Hopitalizations: No Immunizations Up To Date Tetanus Booster (TDap): Unknown Seasonal Allergies Seasonal Allergies: No Past Medical History Surgeries: Yes (spleenectomy, d&c) Section, Gallbladder, Hysterectomy, Oophorectomy, Orthopedic Respiratory: Yes Asthma Cardiac: No Neurological: Yes Headaches /Migraines, Neuropathy Reproductive Disorders: No 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 0oz. 52.314372nr; BMI Method:Actual General Appearance: WD/WN, no apparent distress Eyes: bilateral eye PERRL, bilateral eye EOMI, bilateral eye lid inflammation (mild right worse than left) Ears: bilateral ear auricle normal, bilateral ear canal normal, bilateral ear TM normal Nose: normal inspection; No active bleeding Mouth/Throat: normal mouth inspection, pharynx normal Neck: full range of motion, normal inspection Cardiovascular: normal peripheral pulses, regular rate, rhythm Respiratory: no respiratory distress, no accessory muscle use Neurologic/Psychiatric: alert, normal mood/affect, oriented x 3 Progress/Results/Core Measures Results/Orders Lab Results Laboratory Tests Test 04/14/19 20:41 04/14/19 21:55 Range/Units White Blood Count 6.4 4.3-11.0 10^3/uL Red Blood Count 4.39 4.35-5.85 10^6/uL Hemoglobin 14.3 11.5-16.0 G/DL Hematocrit 41 35-52 % Mean Corpuscular Volume 93 80-99 FL Mean Corpuscular Hemoglobin 33 25-34 PG Mean Corpuscular Hemoglobin Concent 35 32-36 G/DL Red Cell Distribution Width 12.4 10.0-14.5 % Platelet Count 408 H 130-400 10^3/uL Mean Platelet Volume 11.1 H 7.4-10.4 FL Neutrophils (%) (Auto) 66 42-75 % Lymphocytes (%) (Auto) 23 12-44 % Monocytes (%) (Auto) 10 0-12 % Eosinophils (%) (Auto) 1 0-10 % Basophils (%) (Auto) 0 0-10 % Neutrophils # (Auto) 4.2 1.8-7.8 X 10^3 Lymphocytes # (Auto) 1.5 1.0-4.0 X 10^3 Monocytes # (Auto) 0.6 0.0-1.0 X 10^3 Eosinophils # (Auto) 0.1 0.0-0.3 10^3/uL Basophils # (Auto) 0.0 0.0-0.1 10^3/uL Sodium Level 138 135-145 MMOL/L Potassium Level 3.7 3.6-5.0 MMOL/L Chloride Level 105 98-107 MMOL/L Carbon Dioxide Level 24 21-32 MMOL/L Anion Gap 9 5-14 MMOL/L Blood Urea Nitrogen 11 7-18 MG/DL Creatinine 0.98 0.60-1.30 MG/DL Estimat Glomerular Filtration Rate 60 BUN/Creatinine Ratio 11 Glucose Level 125 H 70-105 MG/DL Calcium Level 9.5 8.5-10.1 MG/DL Corrected Calcium 9.4 8.5-10.1 MG/DL Total Bilirubin 0.4 0.1-1.0 MG/DL Aspartate Amino Transf (AST/SGOT) 19 5-34 U/L Alanine Aminotransferase (ALT/SGPT) 13 0-55 U/L Alkaline Phosphatase 75 40-136 U/L Total Protein 7.3 6.4-8.2 GM/DL Albumin 4.1 3.2-4.5 GM/DL Urine Color YELLOW Urine Clarity CLEAR Urine pH 6.5 5-9 Urine Specific Sod 1.010 L 1.016-1.022 Urine Protein NEGATIVE NEGATIVE Urine Glucose (UA) NEGATIVE NEGATIVE Urine Ketones NEGATIVE NEGATIVE Urine Nitrite NEGATIVE NEGATIVE Urine Bilirubin NEGATIVE NEGATIVE Urine Urobilinogen 0.2 < = 1.0 MG/DL Urine Leukocyte Esterase NEGATIVE NEGATIVE Urine RBC (Auto) NEGATIVE NEGATIVE Urine RBC NONE /HPF Urine WBC 2-5 /HPF Urine Squamous Epithelial Cells 2-5 /HPF Urine Crystals PRESENT H /LPF Urine Amorphous Sediment FEW MEGHANA URATES H /LPF Urine Bacteria MODERATE H /HPF Urine Casts NONE /LPF Urine Mucus NEGATIVE /LPF Urine Culture Indicated YES My Orders Orders - GHASSAN SALAZAR Tetracaine 0.5% Ophth Rochelle Sdv (Tetracai (04/14/19 20:30) Fluorescein Strips (Rfqbt-E-Ptlics) (04/14/19 20:30) Balanced Salt Irrigation Soln (Bss Irrig (04/14/19 20:30) Fluorescein Strips (Voweu-O-Bjrydy) (04/14/19 20:17) Cbc With Automated Diff (04/14/19 20:36) Comprehensive Metabolic Panel (04/14/19 20:36) Ed Iv/Invasive Line Start (04/14/19 20:36) Lactated Ringers (Lr 1000 Ml Iv Solution (04/14/19 20:36) Chest Pa/Lat (2 View) (04/14/19 21:40) Ua Culture If Indicated (04/14/19 21:41) Albuterol/Ipra Inhalation Soln (Duoneb I (04/14/19 21:45) Svn Small Volume Nebulizer (04/14/19 21:44) Blood Culture (04/14/19 21:47) Cefepime Injection (Maxipime Injection) (04/14/19 22:00) Vancomycin Injection (Vancomycin Injecti (04/14/19 22:00) Urine Culture (04/14/19 21:55) Medications Given in ED Current Medications Medications Dose Ordered Sig/Mor Route Start Time Stop Time Status Last Admin Dose Admin Albuterol/ Ipratropium 3 ml ONCE ONCE INH 04/14/19 21:45 04/14/19 21:46 DC 04/14/19 22:02 3 ML Balanced Salt Solution 15 ml ONCE ONCE IR 04/14/19 20:30 04/14/19 20:31 DC 04/14/19 20:26 15 ML Carboxymethylcellulose Sodium 1 DROP PRN PRN OD 04/14/19 21:00 04/14/19 21:36 0.4 EACH Cefepime HCl 1000 mg/Sterile Water 10 ml @ 200 mls/hr ONCE ONCE IV 04/14/19 22:00 04/14/19 22:02 DC 04/14/19 22:20 200 MLS/HR Fluorescein Sodium 1 mg ONCE ONCE OU 04/14/19 20:30 04/14/19 20:31 DC 04/14/19 20:26 1 MG Lactated Ringer's 1,000 ml @ 0 mls/hr Q0M ONCE IV 04/14/19 20:36 04/14/19 20:37 DC 04/14/19 20:53 1,000 MLS/HR Tetracaine HCl 4 ml ONCE ONCE OU 04/14/19 20:30 04/14/19 20:31 DC 04/14/19 20:25 4 ML Vancomycin HCl 1000 mg/Sodium Chloride 250 ml @ 250 mls/hr ONCE ONCE IV 04/14/19 22:00 04/14/19 22:59 04/14/19 22:24 250 MLS/HR Vital Signs/I&O 04/14/19 20:14 Temp 36.9 Pulse 126 Resp 20 B/P (MAP) 152/99 (116) Pulse Ox 92 Progress Progress Note #1: Time: 20:27 Progress Note Because of the patient's photophobia and discomfort is difficult to get a good eye exam. We will going to use tetracaine and fluorescein to see if we can't highlight a foreign body such as her contact lens which she feels is stuck still in her eye. We will then discuss the case with optometry and probably put her on topical antibiotics. Plan to flush her eye out with saline. Progress Note #2: Time: 20:44 Progress Note Reexamination of the eye using tetracaine and fluorescein. The patient is much more comfortable. She does not seem to have any foreign body but does have a large corneal abrasion/sloughing over the 10:00 position of the eye approximately 2 x 8 mm. Both eyelids are inflamed but could not find any foreign body presently. Discussed the case with Dr. Herr who is on-call. He is familiar with her case. He does not recommend antibiotics. He does recommend 7 drops of tetracaine diluted in a bottle of lubricating eyedrops to be used as needed throughout the night. He wants her to follow up in clinic tomorrow at 1330 4 repeat application of an eye patch. If she cannot make it that long she can text him or go in earlier that morning. Progress Note #3: Time: 21:40 Progress Note Patient's pain is still under good control. Were unable to locate lubricating eyedrops that we could compound for her. We did find some lubricating eyedrops send her home with however. Patient says that she feels a little more short of breath and does not feel comfortable going home. She does have some crackles along her bases of her bilateral lungs. Because of her immunocompromise, influ emani it's very possible she could have a pneumonia. Chest x-ray and labs were obtained. Blood cultures. We will discuss the case with primary care. She has been on ciprofloxacin for the past couple weeks for a GI bug. Despite the liter fluids she is still tachycardic around 105 heart rate. Diagnostic Imaging Diagonstic Imaging: Xray Plain Films/CT/US/NM/MRI: chest (2v) Comments No acute infiltrate or other acute cardiopulmonary process noted on a 2 view chest x-ray. Reviewed: Reviewed by Me Departure Communication (Admissions) Time/Spoke to Admitting Phy: 21:[address] Alejandre and she agrees to admit the patient, antibiotic selection and follow blood cultures. Impression Primary Impression: Pneumonia Qualified Codes: J18.9 - Pneumonia, unspecified organism Additional Impressions: Corneal abrasion Qualified Codes: S05.01XA - Injury of conjunctiva and corneal abrasion without foreign body, right eye, initial encounter Influenza Dehydration Disposition: ADMITTED INPATIENT Condition: Stable Admissions Decision to Admit Reason: Admit from ER (General) Decision to Admit/Date: Apr 14, 2019 Time/Decision to Admit Time: 21:45 Departure-Patient Inst. Referrals: YURIY SHAFFER MD (PCP/Family) Primary Care Physician GHASSAN SALAZAR Apr 14, 2019 20:23
[2019-04-14] MEDS ORDERED: BSS 15 ML IR ONE (20:30)
[2019-04-14] MEDS ORDERED: FLUORESCEIN (FLUOR-I-STRIPS) 1 MG STRP OU ONE (20:30)
[2019-04-14] MEDS ORDERED: TETRACAINE 0.5% OPHTH SOLN 4 ML BTL (SINGLE DOSE ONLY) OU ONE (20:30)
[2019-04-14] MEDS ORDERED: LACTATED RINGERS 1,000 ML IV ONE (20:36)
[2019-04-14 20:49] LABS: BASOPHILS % (AUTO) 0 % (0-10); EOSINOPHILS # (AUTO) 0.1 10^3/uL (0.0-0.3); EOSINOPHILS % (AUTO) 1 % (0-10); HEMATOCRIT 41 % (35-52); HEMOGLOBIN 14.3 G/DL (11.5-16.0); LYMPHOCYTES # (AUTO) 1.5 X 10^3 (1.0-4.0); LYMPHOCYTES % (AUTO) 23 % (12-44); MEAN CORPUSCULAR HEMOGLOBIN 33 PG (25-34); MEAN CORPUSCULAR HGB CONC 35 G/DL (32-36); MEAN CORPUSCULAR VOLUME 93 FL (80-99); MEAN PLATELET VOLUME 11.1 FL (7.4-10.4); MONOCYTES # (AUTO) 0.6 X 10^3 (0.0-1.0); MONOCYTES % (AUTO) 10 % (0-12); NEUTROPHILS # (AUTO) 4.2 X 10^3 (1.8-7.8); NEUTROPHILS % (AUTO) 66 % (42-75); PLATELET COUNT 408 10^3/uL (130-400); RED CELL DISTRIBUTION WIDTH 12.4 % (10.0-14.5); WHITE BLOOD COUNT 6.4 10^3/uL (4.3-11.0)
--- NOTE | 2019-04-14 20:50 | NUR ---
BLANKET PROVIDED TO PATIENT
[2019-04-14] MEDS ORDERED: ARTIFICAL TEARS 0.4 ML UNIT DOSE (REFRESH PLUS) OD PRN (21:00)
[2019-04-14 21:09] LABS: ALBUMIN 4.1 GM/DL (3.2-4.5); BILIRUBIN,TOTAL 0.4 MG/DL (0.1-1.0); CALCIUM 9.5 MG/DL (8.5-10.1); CREATININE SERUM 0.98 MG/DL (0.60-1.30); POTASSIUM 3.7 MMOL/L (3.6-5.0); TOTAL PROTEIN 7.3 GM/DL (6.4-8.2)
[2019-04-14] MEDS ORDERED: RT-ALBUTEROL/IPRATROPIUM 3 ML (DUONEB) VIAL INH ONE (21:45)
--- NOTE | 2019-04-14 21:51 | NUR ---
CALLED RESPIRITORY THERAPY TO GIVE BREATHING TREATMENT.
[2019-04-14] MEDS ORDERED: CEFEPIME INJECTION 1,000 MG in WATER (STERILE) FOR INJECTION 10 ML IV ONE (22:00)
[2019-04-14] MEDS ORDERED: VANCOMYCIN INJECTION 1,000 MG in NS (IVPB) 250 ML IV ONE (22:00)
[2019-04-14 22:03] LABS: BILIRUBIN,URINE NEGATIVE (NEGATIVE); CLARITY,URINE CLEAR; COLOR,URINE YELLOW; GLUCOSE, URINE (UA) NEGATIVE (NEGATIVE); KETONES,URINE NEGATIVE (NEGATIVE); LEUKOCYTE ESTERASE ,URINE NEGATIVE (NEGATIVE); NITRITE,URINE NEGATIVE (NEGATIVE); PH,URINE 6.5 (5-9); PROTEIN,URINE NEGATIVE (NEGATIVE)
[2019-04-14 22:31] LABS: BACTERIA,URINE MODERATE /HPF
[2019-04-14 22:32] LABS: AMORPHOUS SEDIMENT,UR FEW AMOR URATES /LPF
--- NOTE | 2019-04-14 23:38 | NUR ---
PT admitted to room 429-1, with an admitting diagnosis of PNA, FLU B, AND DEHYDRATION, on 04/14/19 from [facility] via WHEELCHAIR, accompanied by STAFF. SARAH JAMES introduced to surroundings, call light, bed controls, phone, TV, temperature control, lights, meal times, smoking policy, visitor policy, side rail policy, bathrooms and showers. Patient Rights given to patient in the handbook. SARAH JAMES verbalizes understanding that [facility] is not responsible for the loss or damage to any personal effects or valuables that are kept in the patients posession during their hospitalization. SARAH JAMES verbalizes understanding of Interdisciplinary Patient Education. Patient was informed about the Rapid Response Team and its purpose.
[2019-04-15] VITALS: BP 139/86
[2019-04-15] MEDS ORDERED: ONDANSETRON 4 MG/2 ML (SDV) Z0FRAN IV PRN (00:30)
[2019-04-15] MEDS ORDERED: HYDROcodone/APAP 7.5 MG/325 MG (LORTAB, LORCET PLUS) TABLET PO PRN (00:30)
[2019-04-15] MEDS ORDERED: ACETAMINOPHEN 325 MG TABLET PO PRN (00:30)
[2019-04-15] MEDS ORDERED: RT-ALBUTEROL SULF 2.5 MG/3 ML PRE-MIX VIAL INH PRN (00:30)
[2019-04-15] MEDS: LACTATED RINGERS 1,000 ML IV SCH ×2 (01:05→08:51)
[2019-04-15] MEDS: IBUPROFEN 800 MG (MOTRIN) TAB PO PRN ×2 (03:05→08:50)
[2019-04-15 03:58] VITALS: BP 134/83
[2019-04-15 05:09] LABS: BASOPHILS % (AUTO) 0 % (0-10); EOSINOPHILS # (AUTO) 0.1 10^3/uL (0.0-0.3); EOSINOPHILS % (AUTO) 2 % (0-10); HEMATOCRIT 35 % (35-52); HEMOGLOBIN 11.9 G/DL (11.5-16.0); LYMPHOCYTES # (AUTO) 2.6 X 10^3 (1.0-4.0); LYMPHOCYTES % (AUTO) 38 % (12-44); MEAN CORPUSCULAR HEMOGLOBIN 32 PG (25-34); MEAN CORPUSCULAR HGB CONC 34 G/DL (32-36); MEAN CORPUSCULAR VOLUME 94 FL (80-99); MEAN PLATELET VOLUME 11.5 FL (7.4-10.4); MONOCYTES # (AUTO) 0.8 X 10^3 (0.0-1.0); MONOCYTES % (AUTO) 13 % (0-12); NEUTROPHILS # (AUTO) 3.2 X 10^3 (1.8-7.8); NEUTROPHILS % (AUTO) 47 % (42-75); PLATELET COUNT 349 10^3/uL (130-400); RED CELL DISTRIBUTION WIDTH 12.3 % (10.0-14.5); WHITE BLOOD COUNT 6.7 10^3/uL (4.3-11.0)
--- NOTE | 2019-04-15 05:39 | Diagnostic Imaging Report ---
INDICATION: Cough and congestion. Comparison with 07/31/2007. FINDINGS: PA and lateral chest. The lungs are well-aerated. There are no infiltrates or masses. The heart is not enlarged. There is no pulmonary edema. No pneumothorax or pleural effusion. No blastic or lytic bony changes. IMPRESSION: Normal portable chest. Dictated by: Dictated on workstation # [id number]
[2019-04-15 05:41] LABS: ALANINE AMINOTRANSFERASE 10 U/L (0-55); ALBUMIN 3.2 GM/DL (3.2-4.5); ALKALINE PHOSPHATASE 56 U/L (40-136); BILIRUBIN,TOTAL 0.4 MG/DL (0.1-1.0); BUN/CREATININE RATIO 12; CALCIUM 8.8 MG/DL (8.5-10.1); CARBON DIOXIDE 23 MMOL/L (21-32); CHLORIDE 107 MMOL/L (98-107); CREATININE SERUM 0.66 MG/DL (0.60-1.30); GFR ESTIMATED > 60; GLUCOSE 86 MG/DL (70-105); POTASSIUM 3.7 MMOL/L (3.6-5.0); SODIUM 138 MMOL/L (135-145); TOTAL PROTEIN 5.8 GM/DL (6.4-8.2)
--- NOTE | 2019-04-15 07:21 | Diagnostic Imaging Report ---
INDICATION: Pneumonia. FINDINGS: Portable chest shows normal heart size and vascularity. There is discoid atelectasis in the left lower lobe which has improved since 04/14/2019. No infiltrates or effusions are seen. IMPRESSION: Improving chest. Dictated by: Dictated on workstation # [id number]
[2019-04-15 08:00] VITALS: BP 134/90
--- NOTE | 2019-04-15 08:01 | NUR ---
DR. LUCIO NOTIFIED OF CONSULT THIS A.M., PER ADMITTING PHYSICIANS ORDERS. NO NEW ORDERS AT THIS TIME.
[2019-04-15] MEDS ORDERED: ESTR42.511 VG (08:40)
[2019-04-15] MEDS ORDERED: [UNRECOGNIZED DRUG - CODE] PO (08:40)
[2019-04-15] MEDS ORDERED: PROM25TA14 PO (08:40)
[2019-04-15] MEDS ORDERED: CIPR500T4 PO (08:40)
[2019-04-15] MEDS ORDERED: PSEU60TA21 PO (08:40)
[2019-04-15] MEDS ORDERED: PHEN95TA30 PO (08:40)
[2019-04-15] MEDS ORDERED: LOTE5DRO3 OD (08:40)
[2019-04-15] MEDS ORDERED: PROM12.566 RC (08:40)
[2019-04-15] MEDS ORDERED: HYDR-4227 PO (08:40)
[2019-04-15] MEDS ORDERED: CYCL100C8 PO (08:40)
[2019-04-15] MEDS ORDERED: MULT400C3 PO (08:40)
[2019-04-15] MEDS ORDERED: OMEG-160 PO (08:40)
[2019-04-15] MEDS ORDERED: ALPR1TAB7 PO (08:40)
[2019-04-15] MEDS ORDERED: GALC120P SC (08:40)
[2019-04-15] MEDS ORDERED: BENZ-36 PO (08:40)
[2019-04-15] MEDS ORDERED: TOPI100T11 PO (08:40)
[2019-04-15] MEDS ORDERED: CALC300T4 PO (08:42)
--- NOTE | 2019-04-15 08:47 | NUR ---
SPOKE WITH THE PT, WENT THRU THE EXT MED HISTORY AND CALLED [facility] TO COMPLETE THE MED REC. CYCLOSPORIN 100MG: RX SAYS 1 CAP BID- HOWEVER THE PT SAYS SHE HAS NOT TOLERATED THE MEDICATION WELL AND ONLY TAKES 1 TAB HS. PT SAYS SHE TAKES SUDAFED 60MG PRN- LAST FILL DATE WAS 03-26-2019 #28 (THIS DID NOT SHOW ON THE EXT MED HISTORY) PT MENTIONED TAKING MACRODANTIN PRN WHEN SHE FELT A UTI STARTING- [facility] HAS NOT FILLED THIS IN OVER A YEAR SO IT WAS LEFT OFF THE MED REC. PT USES PROMETHAZINE SUPP AND TABS BUT SHE PREFERS THE SUPP. OTC MEDS: EMERGEN-C IMMUNITY FISH OIL MTV AZO STANDARD TUMS DOCUSATE
[2019-04-15] MEDS ORDERED: DOCU100T2 PO (08:52)
[2019-04-15] MEDS ORDERED: CEFEPIME 2,000 MG/SWFI 20 ML IV PUSH IV SCH ×2 (09:00)
--- NOTE | 2019-04-15 10:41 | Short Stay Summary ---
Discharge Summary Hospital Course Final Diagnosis: Recent influenza infection Hospital Course Date of Admission: Apr 14, 2019 at 21:45 Admission Diagnosis : Recent influenza infection Uveitis Family Physician/Provider: Manjeet Shaffer MD Date of Discharge: 04/15/19 Discharge Diagnosis: Recent influenza infection Uveitis Hospital Course: Pt was admitted with concern for pneumonia after recent influenza infection (fully treated before admission), but she was afebrile, had no hypoxia, CXR had no infiltrate and she had no leukocytosis. She did have some tachycardia which improved with IVF. She has chronic uveitis and had worsened eye pain and is to follow up with Dr. Watt today. She stated she needs a referral still for Rhe umatology due to concern about underlying autoimmune disorder causing her uveitis. Labs and Pending Lab Test: Laboratory Tests 04/14/19 20:41: White Blood Count 6.4, Red Blood Count 4.39, Hemoglobin 14.3, Hematocrit 41, Mean Corpuscular Volume 93, Mean Corpuscular Hemoglobin 33, Mean Corpuscular Hemoglobin Concent 35, Red Cell Distribution Width 12.4, Platelet Count 408H, Mean Platelet Volume 11.1H, Neutrophils (%) (Auto) 66, Lymphocytes (%) (Auto) 23, Monocytes (%) (Auto) 10, Eosinophils (%) (Auto) 1, Basophils (%) (Auto) 0, Neutrophils # (Auto) 4.2, Lymphocytes # (Auto) 1.5, Monocytes # (Auto) 0.6, Eosinophils # (Auto) 0.1, Basophils # (Auto) 0.0, Sodium Level 138, Potassium Level 3.7, Chloride Level 105, Carbon Dioxide Level 24, Anion Gap 9, Blood Urea Nitrogen 11, Creatinine 0.98, Estimat Glomerular Filtration Rate 60, BUN/Creatinine Ratio 11, Glucose Level 125H, Calcium Level 9.5, Corrected Calcium 9.4, Total Bilirubin 0.4, Aspartate Amino Transf (AST/SGOT) 19, Alanine Aminotransferase (ALT/SGPT) 13, Alkaline Phosphatase 75, Total Protein 7.3, Albumin 4.1 04/14/19 21:55: Urine Color YELLOW, Urine Clarity CLEAR, Urine pH 6.5, Urine Specific [place] 1.010L, Urine Protein NEGATIVE, Urine Glucose (UA) NEGATIVE, Urine Ketones NEGATIVE, Urine Nitrite NEGATIVE, Urine Bilirubin NEGATIVE, Urine Urobilinogen 0.2, Urine Leukocyte Esterase NEGATIVE, Urine RBC (Auto) NEGATIVE, Urine RBC NONE, Urine WBC 2-5, Urine Squamous Epithelial Cells 2-5, Urine Crystals PRESENTH, Urine Amorphous Sediment FEW [place] URATESH, Urine Bacteria MODERATEH, Urine Casts NONE, Urine Mucus NEGATIVE, Urine Culture Indicated YES 04/15/19 04:45: White Blood Count 6.7, Red Blood Count 3.75L, Hemoglobin 11.9, Hematocrit 35, Mean Corpuscular Volume 94, Mean Corpuscular Hemoglobin 32, Mean Corpuscular Hemoglobin Concent 34, Red Cell Distribution Width 12.3, Platelet Count 349, Mean Platelet Volume 11.5H, Neutrophils (%) (Auto) 47, Lymphocytes (%) (Auto) 38, Monocytes (%) (Auto) 13H, Eosinophils (%) (Auto) 2, Basophils (%) (Auto) 0, Neutrophils # (Auto) 3.2, Lymphocytes # (Auto) 2.6, Monocytes # (Auto) 0.8, Eosinophils # (Auto) 0.1, Basophils # (Auto) 0.0 04/15/19 04:50: Sodium Level 138, Potassium Level 3.7, Chloride Level 107, Carbon Dioxide Level 23, Anion Gap 8, Blood Urea Nitrogen 8, Creatinine 0.66, Estimat Glomerular Filtration Rate > 60, BUN/Creatinine Ratio 12, Glucose Level 86, Calcium Level 8.8, Corrected Calcium 9.4, Total Bilirubin 0.4, Aspartate Amino Transf (AST/SGOT) 17, Alanine Aminotransferase (ALT/SGPT) 10, Alkaline Phosphatase 56, Total Protein 5.8L, Albumin 3.2 Home Meds Active Reported Docusate Sodium 100 Mg Tablet 200 Mg PO BID PRN Tums (Calcium Carbonate) 300 Mg Tab.chew 600-900 Mg PO PRN PRN Sudogest (Pseudoephedrine HCl) 60 Mg Tablet 60 Mg PO Q6H PRN Azo Standard (Phenazopyridine HCl) 95 Mg Tablet 95 Mg PO PRN PRN Multi For Her 50 Plus Softgel (Multivit-Min/Folic Acid/Vit K1) 1 Each Capsule 2 Each PO DAILY Fish Oil 1,000 mg Softgel ([place]-3/Dha/Epa/Fish Oil) 1 Each Capsule 1 Each PO TID [place] 7.5-325 Tablet (Hydrocodone/Acetaminophen) 1 Each Tablet 1 Tab PO Q8H PRN Promethazine Tablet (Promethazine HCl) 25 Mg Tablet 25 Mg PO Q8H PRN Promethazine Suppository (Promethazine HCl) 12.5 Mg Supp.rect 12.5 Mg RC Q6H PRN Emergen-C 1,000 mg Variety Pk (Ascorbic Acid/Multivit-Min) 1,000 Mg Effpowdpkt 1,000 Mg PO DAILY Benzonatate 100 Mg Capsule 100-200 Mg PO Q8H Ciprofloxacin HCl 500 Mg Tablet 500 Mg PO BID FILLED 04-06-2019 #20/10 DAY SUPPLY Emgality (Galcanezumab-Gnlm) 120 Mg/1 Ml Pen.injctr 120 Mg SC MONTHLY Alrex (Loteprednol Etabonate) 5 Ml Drops.susp 1 Drop OD TID Estradiol 42.5 Gm Cream.appl Gm VG 3XWEEKLY Alprazolam 1 Mg Tablet 1 Mg PO HS Cyclosporine 100 Mg Capsule 100 Mg PO HS Topiramate 100 Mg Tablet 100 Mg PO BID Assessment/Pt Instructions Follow up with Dr. Duarte this afternoon. Follow up with Dr. Shaffer on 04/19 at 2:40 pm. Discharge Instructions Discharge Diet: No Restrictions Activity as Tolerated: Yes Discharge Physical Examination General Appearance: Alert, No Acute Distress Respiratory: Clear to Auscultation, Normal Air Movement Cardiovascular: Regular Rate, No Murmurs Abdominal: Normal Bowel Sounds, Soft Extremities: No Edema Neuro: Normal Speech Psych/Mental Status: Other (flat affect) Allergies: Coded Allergies: levofloxacin (Verified Allergy, Intermediate, RASH, 04/14/19) Sulfa (Sulfonamide Antibiotics) (Verified Allergy, Mild, 04/14/19) nitrofurantoin (Unverified Allergy, Mild, 04/14/19) adhesive (Verified Allergy, Unknown, 04/14/19) iodine (Verified Allergy, Unknown, 04/14/19) Copy Copies To 1: MANJEET SHAFFER MD Discharge Summary Date of Admission Apr 14, 2019 at 21:45 Date of Discharge Apr 15, 2019 Discharge Date: Apr 15, 2019 Discharge Time: 10:41 Clinical Quality Measures DVT/VTE Risk/Contraindication: Risk Factor Score Per Nursin RFS Level Per Nursing on Admit: 4+=Very High BEATRICE GARCIA MD Apr 15, 2019 10:41
[2019-04-15 12:00] VITALS: BP 120/80
[2019-04-15 13:00] VITALS: BP 120/80
--- NOTE | 2019-04-15 13:47 | NUR ---
"RD ASSESSMENT PMHx: Chronic-UTI PT INTERACTION: Pt was semi-awake and pleasant during consult for MST score. Pt states current appetite is so-so and has been for awhile. Note PO intake of 25% x1meal, per chart review. Pt states following a regular diet at home and has no issues with chewing/swallowing food. Pt states recent issues with nausea, vomiting, constipation and diarrhea, and that her last BM was 3/2. Note pt not currently on bowel regimen per chart review. Pt states recent 25# wt loss, but unsure of timeframe of wt lost. Note unable to determine recent wt hx, per chart review. Note difficult to determine visual exam as pt had blankets covering much of her face. Given poor diet hx and wt hx, pt does not meet criteria for malnutrition per ASPEN guidelines. ABNORMAL NUTRITION-RELATED LAB VALUES LOW: Pro 5.8 HIGH: Est. kcal needs: 0593-1140 kcal | 25-30 kcal/kg Est. Pro needs: 53-63 g Pro | 1.0-1.2 g Pro/kg PES STATEMENT: Inadequate oral intake (NI-2.1) related to loss of appetite | nausea | vomiting | constipation | diarrhea as evidenced by pt interview | PO intake 25% x1meal INTERVENTION: Continue with current diet order of Regular diet. Would recommend adding Ensure Enlive (vary) to meals TID, for increased kcal intake. Provides 350 kcal and 13 g Pro per serving. Will continue to follow and reassess as pt needs, intake and status change. MONITOR/EVALUATE: PO Intake; Plan of Care; Hydration Status; Weight Status; Lab Values Renato Best, MS, RD, LD"
== END 2019-04-15 13:40 | disposition home or self-care (01) | DRG 125 ==
LOC: EDUNIT# 20:09 → ER 20:12 → 4TH 21:45
PROVIDERS: ADMIT Family Medicine; ATTEND Family Medicine
DX: H20.9 Unspecified iridocyclitis (principal); J45.909 Unspecified asthma, uncomplicated; R00.0 Tachycardia, unspecified; G43.909 Migraine, unspecified, not intractable, without status migrainosus; G62.9 Polyneuropathy, unspecified; M19.90 Unspecified osteoarthritis, unspecified site; Z87.440 Personal history of urinary (tract) infections; Z90.710 Acquired absence of both cervix and uterus; Z79.891 Long term (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 analgesic
CPT/HCPCS: 36415; 71045; 71046; 80053; 81000; 85025; 87040; 87088; G0378

== ENCOUNTER → 2019-06-08 | Outpatient (CLI) | payer BC, OTHER ==
[~2019-06-08] MED LIST changes: +ALPR1TAB7 PO; +BENZ-36 PO; +CALC300T4 PO; +CIPR500T4 PO; +CYCL100C8 PO; +DOCU100T2 PO; +ESTR42.511 VG; +GALC120P SC; +HYDR-4227 PO; +LOTE5DRO3 OD; +MULT400C3 PO; +OMEG-160 PO; +PHEN95TA30 PO; +PROM12.566 RC; +PROM25TA14 PO; +PSEU60TA21 PO; +TOPI100T11 PO; +[UNRECOGNIZED DRUG - CODE] PO
--- NOTE | 2019-06-08 10:33 | Diagnostic Imaging Report ---
INDICATION: Chronic sinusitis. TECHNIQUE: Multiple contiguous axial images were obtained through the sinuses without the use of intravenous contrast. Coronal and sagittal reformations were then performed. Auto Exposure Controls were utilized during the CT exam to meet ALARA standards for radiation dose reduction. COMPARISON: There is no prior study for comparison. FINDINGS: The frontal sinuses appear clear. The ethmoid air cells appear clear. The sphenoid sinuses are clear. The maxillary sinuses are clear. There is deviation of the nasal septum toward the right side. The soft tissue windows are unremarkable. Views of the orbits show no intraorbital mass or inflammatory change. IMPRESSION: Essentially negative CT sinuses except for deviation of the nasal septum toward the right side. Dictated by: Dictated on workstation # [id number]
== END ==
LOC: RAD 10:08
PROVIDERS: ATTEND Otolaryngology Otolaryngology/Facial Plastic Surgery
DX: J32.9 Chronic sinusitis, unspecified (principal); J34.2 Deviated nasal septum
CPT/HCPCS: 70486

== ENCOUNTER 2020-03-12 21:58 | Emergency (ER) | payer BC, OTHER ==
[~2020-03-12] VITALS: Ht 154.9 cm; Wt 52.6 kg
[2020-03-12] MEDS ORDERED: TETRACAINE 0.5% OPHTH SOLN 4 ML BTL (SINGLE DOSE ONLY) ONE (23:09)
[2020-03-12] MEDS ORDERED: RX-HYDROCODONE/APAP 5/325 MG #4 TAB PK PO ONE (23:52)
--- NOTE | 2020-03-12 23:53 | ED EENT ---
History of Present Illness General Chief Complaint: Eye Problems Stated Complaint: L EYE PAIN/INJ Nursing Triage Note: PT AMBULATE TO ROOM 03 WITH C/O EYE PAIN AND INJURY AFTER BEING HIT/SCRATCHED IN THE LEFT EYE WHILE PLAYING A CARD GAME WITH FAMILY. PT REPORTS HAVING A CHRONIC EYE CONDITION THAT HAS CAUSED BILAT BLINDNESS. Source: patient History of Present Illness Date Seen by Provider: Mar 12, 2020 Time Seen by Provider: 22:55 Initial Comments PT ARRIVES VIA POV FROM HOME WITH SISTER PT C/O SEVERE LEFT EYE PAIN PT STATES HER SON ACCIDENTALLY RAISED HIS HAND UP, AND HIT OR SCRATCHED IN LEFT EYE JUST PRIOR TO ARRIVAL PT HAS A CHRONIC EYE CONDITION, AND IS BLIND IN BOTH EYES, AND HAS CHRONIC SEVERE EYE PAIN IN BOTH EYES AND IS ON HYDROCODONE DAILY FOR THIS PT HAS CHRONIC ULCER OF LEFT CORNEA, AND IS ON MULTIPLE EYE EYE DROPS IN BOTH EYES, INCLUDING TOBRAMYCIN. SHE JUST SAW DR. 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 MCNEILL SEES [facility] IN [place] Allergies and Home Medications Allergies Coded Allergies: levofloxacin (Verified Allergy, Intermediate, RASH, 04/14/19) Sulfa (Sulfonamide Antibiotics) (Verified Allergy, Mild, 04/14/19) nitrofurantoin (Unverified Allergy, Mild, 04/14/19) adhesive (Verified Allergy, Unknown, 04/14/19) iodine (Verified Allergy, Unknown, 04/14/19) Home Medications Alprazolam 1 Mg Tablet, 1 MG PO HS, (Reported) Ascorbic Acid/Multivit-Min 1,000 Mg Effpowdpkt, 1,000 MG PO DAILY, (Reported) Benzonatate 100 Mg Capsule, 100-200 MG PO Q8H, (Reported) Calcium Carbonate 300 Mg Tab.chew, 600-900 MG PO PRN PRN for HEARTBURN, (Reported) Ciprofloxacin HCl 500 Mg Tablet, 500 MG PO BID, (Reported) FILLED 04-06-2019 #20/10 DAY SUPPLY Cyclosporine 100 Mg Capsule, 100 MG PO HS, (Reported) Docusate Sodium 100 Mg Tablet, 200 MG PO BID PRN for CONSTIPATION-1ST LINE, (Reported) Estradiol 42.5 Gm Cream.appl, GM VG 3XWEEKLY, (Reported) Galcanezumab-Gnlm 120 Mg/1 Ml Pen.injctr, 120 MG SC MONTHLY, (Reported) Hydrocodone/Acetaminophen 1 Each Tablet, 1 TAB PO Q8H PRN for PAIN-MODERATE (5- 7), (Reported) Loteprednol Etabonate 5 Ml Drops.susp, 1 DROP OD TID, (Reported) Multivit-Min/Folic Acid/Vit K1 1 Each Capsule, 2 EACH PO DAILY, (Reported) [place]-3/Dha/Epa/Fish Oil 1 Each Capsule, 1 EACH PO TID, (Reported) Phenazopyridine HCl 95 Mg Tablet, 95 MG PO PRN PRN for URINARY PAIN, (Reported) Promethazine HCl 12.5 Mg Supp.rect, 12.5 MG RC Q6H PRN for NAUSEA/VOMITING-2ND LINE, (Reported) Promethazine HCl 25 Mg Tablet, 25 MG PO Q8H PRN for NAUSEA/VOMITING-2ND LINE, (Reported) Pseudoephedrine HCl 60 Mg Tablet, 60 MG PO Q6H PRN for CONGESTION, (Reported) Topiramate 100 Mg Tablet, 100 MG PO BID, (Reported) Patient Home Medication List Home Medication List Reviewed: Yes Review of Systems Review of Systems Constitutional: no symptoms reported Eyes: See HPI Past Vvtzrev-Tunjgb-Kdihug Hx Past Med/Social Hx: Reviewed and Corrections made Patient Social History Alcohol Use: Denies Use Smoking Status: Never a Smoker 2nd Hand Smoke Exposure: No Recent Infectious Disease Expo: No Recent Hopitalizations: No Immunizations Up To Date Tetanus Booster (TDap): Unknown Date of Pneumonia Vaccine: Nov 12, 2015 Date of Influenza Vaccine: Nov 11, 2018 Seasonal Allergies Seasonal Allergies: No Past Medical History Surgeries: Yes (spleenectomy, d&c) Section, Eye Surgery, Gallbladder, Hysterectomy, Oophorectomy, Orthopedic Respiratory: Yes Asthma Cardiac: No Neurological: Yes Headaches /Migraines, Neuropathy Reproductive Disorders: No 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 Physical Exam Vital Signs Vital Signs - First Documented 03/12/20 03/12/20 22:25 23:59 Temp 36.1 Pulse 66 Resp 18 B/P (MAP) 120/64 (82) Pulse Ox 99 O2 Delivery Room Air Height, Weight, BMI Height: 5'1.00" Weight: 116lbs. 0oz. 52.351888hb; 21.00 BMI Method:Actual General Appearance: WD/WN, no apparent distress, other (PT AMBULATES INTO ER WITH SISTER'S ASSIST, WEARING AN EYE MASK OVER BOTH EYES. EXTREMELY LIMITED EXAM OF EYES. ) Eyes: bilateral eye other (EXTREMELY LIMITED EXAM OF EYES. PHOTOPHOBIA. WILL NOT OPEN EYES, OR ALLOW ME TO MANUALLY OPEN EYELIDS. EYELIDS APPEAR TO BE CHRONICALLY INFLAMED. LEFT EYE APPEARS TO BE WORSE THAN RIGHT. LEFT CONJUNCTIVE APPEARS MARKEDLY INFLAMED AND VERY LIMITED VIEW OF LEFT CORNEA APPEARS TO BE OPACIFIED AND/ OR ULCERATE. PURULENT DRAINAGE IS PRESENT--LEFT >> RIGHT. RIGHT EYE HAS SIMILAR CHANGES BUT APPEARS TO BE MUCH MILDER THAN LEFT. UNABLE TO ASSESS FURTHER. ) Procedures/Interventions Eye : Location: left eye Anesthesia (gtts): Tetracaine Progress/Procedure Conclusion MINIMAL EXAM IS PERFORMED. UNABLE TO DO COMPLETE EXAM DUE TO PT DISCOMFORT, DESPITE TETRACAINE. NO GROSS EXTERNAL INJURY TO LID OR PERIORBITAL AREA, OR GROSS TRAUMA TO EYE. PT STATES PAIN IS EASED SOME WITH TETRACAINE. Progress/Results/Core Measures Results/Orders My Orders Orders - INES MCBRIDE DO Tetracaine 0.5% Ophth Rochelle Sdv (Tetracai (03/12/20 23:09) Rx-Hydrocodone/Apap 5-325 Mg (Rx-Vicodin (03/13/20 00:00) Hydrocodone/Apap 7.5/325 Tab (Lortab 7. (03/13/20 00:00) Rx-Hydrocodone/Apap 5-325 Mg (Rx-Vicodin (03/12/20 23:52) Medications Given in ED Vital Signs/I&O Blood Pressure Mean: 82 Departure Communication (Admissions) 1481--SPOKE WITH DR. MCNEILL, HE ADVISES TO ATTEMPT TO EXAMINE WITH TETRACAINE. HE DOES NOT ADVISE FLUORESCEIN STAIN AT THIS TIME. HE REPORTS THAT THIS IS TYPICAL FOR PT, AND IS ALWAYS EXTREMELY DIFFICULT TO EXAMINE AND ALWAYS WEARS AN EYE MASK OVER BOTH EYES. HE REPORTS THAT PT HAS LARGE, CHRONIC CORNEAL ULCER TO LEFT EYE AND IS FOLLOWED BY SPECIALISTS IN [place]. HE REPORTS THAT SHE HAS LIMBAL STEM CELL DEFICIENCY, AND HAS AN AMNIOTIC MEMBRANE LENS AND CORNEAL SHIELD ALREADY IN PLACE. HE WILL SEE PT IN OFFICE TOMORROW IF NEEDED. WILL CONTINUE HER CURRENT EYE DROPS PRESCRIBED, AND TREAT PAIN. 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 Referrals: DELTA MCNEILL OD, BETTY C DO (PCP) Primary Care Physician Patient Instructions: Eye Contusion (DC), Corneal Abrasion (DC), Corneal Ulcer (DC) Add. Discharge Instructions: CONTINUE YOUR CURRENT EYE DROPS PRESCRIBED TAKE HYDROCODONE EVERY 4-6 HOURS NEEDED FOR PAIN FOLLOW UP WITH DR. MCNEILL ON SATURDAY FOR RECHECK, OR YOU MAY CALL HIM TOMORROW IF NO IMPROVEMENT OR IF WORSE All discharge instructions reviewed with patient and/or family. Voiced u nderstanding. INES MCBRIDE DO Mar 12, 2020 23:53
[2020-03-12 23:59] VITALS: BP 118/62
[2020-03-13] MEDS ORDERED: HYDROcodone/APAP 7.5 MG/325 MG (LORTAB, LORCET PLUS) TABLET PO ONE
[2020-03-13] MEDS ORDERED: RX-HYDROCODONE/APAP 5/325 MG #4 TAB PK PO PRN
== END 2020-03-13 00:01 | disposition home or self-care (01) ==
LOC: EDUNIT# 21:58 → ER 22:00
DX: S05.92XA Unspecified injury of left eye and orbit, initial encounter (principal); G89.29 Other chronic pain; H57.11 Ocular pain, right eye; H16.002 Unspecified corneal ulcer, left eye; H18.893 Other specified disorders of cornea, bilateral; H54.8 Legal blindness, as defined in USA; G43.909 Migraine, unspecified, not intractable, without status migrainosus; F41.9 Anxiety disorder, unspecified; J45.909 Unspecified asthma, uncomplicated; Z87.440 Personal history of urinary (tract) infections; Z79.52 Long term (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 of systemic steroids; Z88.1 Allergy status to other antibiotic agents; Z88.2 Allergy status to sulfonamides; Z88.8 Allergy status to other drugs, medicaments and biological substances; Z91.048 Other nonmedicinal substance allergy status; W50.0XXA Accidental hit or strike by another person, initial encounter
CPT/HCPCS: 99283

== ENCOUNTER 2022-06-21 20:19 | Emergency (ER) | payer OTHER ==
[~2022-06-21] VITALS: Ht 154.9 cm; Wt 52.7 kg
[~2022-06-21 20:19] MED LIST changes: -CIPR500T4 PO; +CIPR500T5 PO; -GENT5DRO30; +GENT5DRO6; -PSEU60TA21 PO; +PSEU60TA87 PO
[2022-06-21 21:04] LABS: BILIRUBIN,URINE NEGATIVE (NEGATIVE); CLARITY,URINE CLEAR; COLOR,URINE ORANGE; GLUCOSE, URINE (UA) TRACE (NEGATIVE); KETONES,URINE NEGATIVE (NEGATIVE); LEUKOCYTE ESTERASE ,URINE NEGATIVE (NEGATIVE); NITRITE,URINE POSITIVE (NEGATIVE); PH,URINE 6.5 (5-9); PROTEIN,URINE TRACE (NEGATIVE)
--- NOTE | 2022-06-21 21:22 | ED GU-Female ---
General Chief Complaint: - Reproductive Stated Complaint: UTI SYMPTOMS Nursing Triage Note: Patient c/o burning with urination and vaginal pressure for greater than 1 wk. Patient states she started Macrobid 200 mg 3 days ago with no improvement in her symptoms. Patient states she has been on antibiotics multipel times for these symptoms. Patient states she has an apt. to see her PCP tomorrow for this complaint. Patient denies seeing a urologist and states she used to see one a long time ago. Patient states she is also on Doxy currently for having a corneal implant done to her eye. Source: patient Exam Limitations: no limitations (BERYL CASSIDY) History of Present Illness Date Seen by Provider: June 21, 2022 Time Seen by Provider: 21:20 Initial Comments Patient is a 56-year-old female who presents ED with burning urination, suprapubic discomfort for the past week. Patient reports frequent urination and burning over the past history of urinary tract infection. She states she is due for a urethral dilation. Patient states she has suprapubic pain and discomfort with the urinary symptoms. Was placed on Macrobid 200 mg 3 days ago. No improvement. Patient denies fever, chills, chest pain, back pain, headache, dizziness. (BERYL CASSIDY) Allergies and Home Medications Allergies Coded Allergies: levofloxacin (Verified Allergy, Intermediate, RASH, 04/14/19) Sulfa (Sulfonamide Antibiotics) (Verified Allergy, Mild, 04/14/19) nitrofurantoin (Unverified Allergy, Mild, 04/14/19) adhesive (Verified Allergy, Unknown, 04/14/19) iodine (Verified Allergy, Unknown, 04/14/19) Patient Home Medication List Home Medication List Reviewed: Yes (BERYL CASSIDY) Alprazolam (Alprazolam) 1 Mg Tablet, 1 MG PO HS, (Reported) Entered as Reported by: DORIS GARCIA on 04/15/19 0840 Ascorbic Acid/Multivit-Min (Emergen-C 1,000 mg Variety Pk) 1,000 Mg Effpowdpkt, 1,000 MG PO DAILY, (Reported) Entered as Reported by: DORIS GARCIA on 04/15/19 0840 Benzonatate (Benzonatate) 100 Mg Capsule, 100-200 MG PO Q8H, (Reported) Entered as Reported by: DORIS GARCIA on 04/15/19 08 Calcium Carbonate (Tums) 300 Mg Tab.chew, 600-900 MG PO PRN PRN for HEARTBURN, (Reported) Entered as Reported by: DORIS GARCIA on 04/15/19 0842 Ciprofloxacin HCl (Ciprofloxacin HCl) 500 Mg Tablet, 500 MG PO BID, (Reported) Entered as Reported by: DORIS GARCIA on 04/15/19 08 Ciprofloxacin HCl (Cipro) 500 Mg Tablet, 500 MG PO BID Prescribed by: MARQUEZ MESA on 06/21/222148 Ciprofloxacin HCl (Cipro) 500 Mg Tablet, 500 MG PO BID Prescribed by: MARQUEZ MESA on 06/21/222156 Cyclosporine (Cyclosporine) 100 Mg Capsule, 100 MG PO HS, (Reported) Entered as Reported by: DORIS GARCIA on 04/15/19 08 Docusate Sodium (Docusate Sodium) 100 Mg Tablet, 200 MG PO BID PRN for CONSTIPATION-1ST LINE, (Reported) Entered as Reported by: DORIS GARCIA on 04/15/19 0852 Estradiol (Estradiol) 42.5 Gm Cream.appl, GM VG 3XWEEKLY, (Reported) Entered as Reported by: DORIS GARCIA on 04/15/19 08 Galcanezumab-Gnlm (Emgality) 120 Mg/1 Ml Pen.injctr, 120 MG SC MONTHLY, (Reported) Entered as Reported by: DORIS GARCIA on 04/15/19 0840 Hydrocodone/Acetaminophen (Cammal 7.5-325 Tablet) 1 Each Tablet, 1 TAB PO Q8H PRN for PAIN-MODERATE (5-7), (Reported) Entered as Reported by: DORIS GARCIA on 04/15/19 08 Loteprednol Etabonate (Alrex) 5 Ml Drops.susp, 1 DROP OD TID, (Reported) Entered as Reported by: DORIS GARCIA on 04/15/19 08 Multivit-Min/Folic Acid/Vit K1 (Multi For Her 50 Plus Softgel) 1 Each Capsule, 2 EACH PO DAILY, (Reported) Entered as Reported by: DORIS GARCIA on 04/15/19 08 [place]-3/Dha/Epa/Fish Oil (Fish Oil 1,000 mg Softgel) 1 Each Capsule, 1 EACH PO TID, (Reported) Entered as Reported by: DORIS GARCIA on 04/15/19839 Phenazopyridine HCl (Azo Standard) 95 Mg Tablet, 95 MG PO PRN PRN for URINARY PAIN, (Reported) Entered as Reported by: DORIS GARCIA on 04/15/19839 Promethazine HCl (Promethazine Suppository) 12.5 Mg Supp.rect, 12.5 MG RC Q6H PRN for NAUSEA/VOMITING-2ND LINE, (Reported) Entered as Reported by: DORIS GARCIA on 04/15/19839 Promethazine HCl (Promethazine Tablet) 25 Mg Tablet, 25 MG PO Q8H PRN for NAUSEA/VOMITING-2ND LINE, (Reported) Entered as Reported by: DORIS GARCIA on 04/15/19839 Pseudoephedrine HCl (Sudogest) 60 Mg Tablet, 60 MG PO Q6H PRN for CONGESTION, (Reported) Entered as Reported by: DORIS GARCIA on 04/15/19839 Topiramate (Topiramate) 100 Mg Tablet, 100 MG PO BID, (Reported) Entered as Reported by: DORIS GARCIA on 04/15/19839 Review of Systems Review of Systems Constitutional: No chills, No diaphoresis, No malaise, No weakness EENTM: No hearing loss, No blurred vision, No double vision Respiratory: No cough, No dyspnea on exertion Cardiovascular: No chest pain Gastrointestinal: abdominal pain; No diarrhea, No nausea, No vomiting Genitourinary: burning; denies discharge; dysuria, frequency Musculoskeletal: No back pain, No joint pain Skin: No change in color, No change in hair/nails (BERYL CASSIDY) All Other Systemes Reviewed Negative Unless Noted: Yes (BERYL CASSIDY) Past Vqfuyfu-Aomhgw-Yrphag Hx Patient Social History Tobacco Use?: No Use of E-Cig and/or Vaping dev: No Substance use?: No Alcohol Use?: No Pt feels they are or have been: No (BERYL CASSIDY) Immunizations Up To Date Tetanus Booster (TDap): Unknown Influenza Vaccine Up-to-Date: No; Not Current (BERYL CASSIDY) Seasonal Allergies Seasonal Allergies: No (BERYL CASSIDY) Past Medical History Surgery/Hospitalization HX: Frequent UTIs Surgeries: Yes (spleenectomy, d&c) Section, Eye Surgery, Gallbladder, Hysterectomy, Oophorectomy, Orthopedic Respiratory: Yes Asthma Cardiac: No Neurological: Yes Headaches /Migraines, Neuropathy Reproductive Disorders: No 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 (BERYL CASSIDY) Physical Exam Vital Signs Vital Signs - First Documented 06/21/22 20:34 Temp 36.9 Pulse 70 Resp 14 B/P (MAP) 126/77 (93) Pulse Ox 91 O2 Delivery Room Air (RAE,INES K DO) Vital Signs Capillary Refill : (BERYL CASSIDY) Height, Weight, BMI Height: 5'1.00" Weight: 116lbs. 0oz. 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, no motor/sensory deficits, alert, normal mood/affect, oriented x 3 Skin: normal color, warm/dry (BERYL CASSIDY) Progress/Results/Core Measures Suspected Sepsis SIRS Temperature: Pulse: 70 Respiratory Rate: 14 Blood Pressure 126 /77 Mean: 93 (BERYL CASSIDY) Results/Orders Lab Results Laboratory Tests Test 06/21/22 20:49 Range/Units Urine Color ORANGE Urine Clarity CLEAR Urine pH 6.5 5-9 Urine Specific [place] 1.010 L 1.016-1.022 Urine Protein TRACE H NEGATIVE Urine Glucose (UA) TRACE H NEGATIVE Urine Ketones NEGATIVE NEGATIVE Urine Nitrite POSITIVE H NEGATIVE Urine Bilirubin NEGATIVE NEGATIVE Urine Urobilinogen 4.0 < = 1.0 MG/DL Urine Leukocyte Esterase NEGATIVE NEGATIVE Urine RBC (Auto) NEGATIVE NEGATIVE Urine RBC NONE /HPF Urine WBC 0-2 /HPF Urine Squamous Epithelial Cells 5-10 /HPF Urine Crystals PRESENT H /LPF Urine Amorphous Sediment RARE [place] URATES H /LPF Urine Bacteria FEW H /HPF Urine Casts NONE /LPF Urine Mucus SMALL H /LPF Urine Culture Indicated YES (INES MCBRIDE DO) Vital Signs/I&O 06/21/22 06/21/22 20:34 21:53 Temp 36.9 36.7 Pulse 70 69 Resp 14 14 B/P (MAP) 126/77 (93) 122/74 Pulse Ox 91 93 O2 Delivery Room Air Room Air (INES MCBRIDE DO) Vital Signs/I&O Capillary Refill : (BERYL CASSIDY) Blood Pressure Mean: 93 Departure Communication (PCP) Reviewed previous ER visits, H&P, lab testing. History of frequent urinary tract infections. History of urethral dilation. She states she is scheduled to follow-up with urology for a dilation. Currently on Macrobid for UTI. She states Cipro helps with her urinary tract infections. Patient with suprapubic discomfort. Stable vital signs. No vomiting, diarrhea, fever, chills. Urinalysis positive for nitrites. No significant leukocytes or white blood cells. Concerning for urinary tract infection. We will switch to Cipro as she states that this does help. Discussed the risk of Cipro and potential complications such as tendon rupture. She acknowledges. She denies any blood thinner use. No history of kidney disease. She is able to urinate. She does not appear toxic. Will discharge with Cipro. She was given a dose here. Follow-up with your urologist or primary care physician in the next 4 to 5 days for recheck of today's symptoms and urinalysis. Return back to ED if symptoms worsen (BERYL CASSIDY) Impression Primary Impression: Urinary tract infection Disposition: 01 HOME, SELF-CARE Condition: Stable Departure-Patient Inst. Decision time for Depature: 21:47 (BERYL CASSIDY) Referrals: DORIS QUINTANILLA DO (PCP/Family) Primary Care Physician Patient Instructions: Urinary Tract Infection, Adult (DC) Add. Discharge Instructions: Need to follow-up with your primary care physician for further evaluation. Return back to ED if symptoms worsen All discharge instructions reviewed with patient and/or family. Voiced understanding. Scripts Ciprofloxacin HCl (Cipro) 500 Mg Tablet 500 MG PO BID for 7 Days, #14 TAB Prov: BERYL CASSIDY 06/21/22 Ciprofloxacin HCl (Cipro) 500 Mg Tablet 500 MG PO BID for 7 Days, #14 TAB Prov: BERYL CASSIDY 06/21/22 ATTENDING PHYSICIAN NOTE: I WAS PHYSICALLY PRESENT ER PHYSICIAN, BUT I WAS NOT INVOLVED IN ANY DECISION MAKING OR ANY CARE OF THIS PATIENT, AND I AM NOT COLLABORATING PHYSICIAN. (INES MCBRIDE DO) BERYL CASSIDY June 21, 2022 21:22 INES MCBRIDE DO June 22, 2022 01:01
[2022-06-21 21:23] LABS: BACTERIA,URINE FEW /HPF
[2022-06-21 21:24] LABS: AMORPHOUS SEDIMENT,UR RARE AMOR URATES /LPF; WBC,URINE 0-2 /HPF
[2022-06-21] MEDS ORDERED: CIPROFLOXACIN 500 MG (CIPRO) TABLET PO STA (21:46)
[2022-06-21] MEDS ORDERED: CIPR-225 PO ×2 (21:49→21:57)
[2022-06-21 21:53] VITALS: BP 122/74
== END 2022-06-21 21:54 | disposition home or self-care (01) ==
LOC: EDUNIT# 20:19 → ER 20:22
DX: N39.0 Urinary tract infection, site not specified (principal); Z88.2 Allergy status to sulfonamides; Z88.1 Allergy status to other antibiotic agents; Z28.310 Unvaccinated for COVID-19
CPT/HCPCS: 81000; 87088; 99283

== ENCOUNTER 2022-06-27 07:55 | Emergency (ER) | payer MEDICARE, OTHER ==
[~2022-06-27 07:55] MED LIST changes: +CIPR-225 PO
[2022-06-27 08:10] LABS: BILIRUBIN,URINE NEGATIVE (NEGATIVE); CLARITY,URINE CLEAR; COLOR,URINE ORANGE; GLUCOSE, URINE (UA) 1+ (NEGATIVE); KETONES,URINE 1+ (NEGATIVE); LEUKOCYTE ESTERASE ,URINE 1+ (NEGATIVE); NITRITE,URINE POSITIVE (NEGATIVE); PH,URINE 6.5 (5-9); PROTEIN,URINE 3+ (NEGATIVE)
[2022-06-27] MEDS ORDERED: fentaNYL INJ 100 MCG/2 ML AMP IVP ONE (08:15)
[2022-06-27 08:23] LABS: BACTERIA,URINE LARGE /HPF; RBC,URINE RARE /HPF; SQUAMOUS EPITHELIAL CELL,UR 25-50 /HPF
[2022-06-27 08:42] LABS: BASOPHILS % (AUTO) 0 % (0-10); EOSINOPHILS # (AUTO) 0.1 10^3/uL (0.0-0.3); EOSINOPHILS % (AUTO) 1 % (0-10); HEMATOCRIT 35 % (35-52); HEMOGLOBIN 11.8 g/dL (11.5-16.0); LYMPHOCYTES # (AUTO) 1.8 10^3/uL (1.0-4.0); LYMPHOCYTES % (AUTO) 27 % (12-44); MEAN CORPUSCULAR HEMOGLOBIN 35 pg (25-34); MEAN CORPUSCULAR HGB CONC 33 g/dL (32-36); MEAN CORPUSCULAR VOLUME 105 fL (80-99); MEAN PLATELET VOLUME 11.7 fL (9.0-12.2); MONOCYTES # (AUTO) 0.6 10^3/uL (0.0-1.0); MONOCYTES % (AUTO) 8 % (0-12); NEUTROPHILS # (AUTO) 4.2 10^3/uL (1.8-7.8); NEUTROPHILS % (AUTO) 63 % (42-75); PLATELET COUNT 321 10^3/uL (130-400); WHITE BLOOD COUNT 6.7 10^3/uL (4.3-11.0)
[2022-06-27 08:44] LABS: SMEAR SCAN COMMENT YES
--- NOTE | 2022-06-27 08:51 | ED GU-Female ---
General Chief Complaint: - Reproductive Stated Complaint: RENAL COLIC Nursing Triage Note: PT ARRIVED PER EMS, PT CO OF R RENAL COLIC HAS HAD FOR A WHILE IS CURRENLY ON CIPRO FOR UTI. R FLANK PAIN 7/10 STATES HAS TAKEN HYDROCODONE ABOUT 0700. PT STATES HAS WAVES OF PAIN THAT GO UP TO 10. PT STATES WORSENING PAIN AT 0500 Source: patient, EMS Exam Limitations: no limitations History of Present Illness Date Seen by Provider: June 27, 2022 Time Seen by Provider: 08:00 Initial Comments 56-year-old female presents to the emergency department via EMS for right flank and suprapubic pain. She states she has frequent issues with urinary tract infections. He was seen here a week ago and diagnosed with UTI, started on clindamycin. She has 1 day remaining. She states her symptoms never really improved and that her pain is drastically worse than it has been. The flank pain is new over the last 24 hours and worsening. She is also on phenazopyri dine. She denies any fevers or chills. No nausea or vomiting no changes in bowels. 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 All other systems reviewed and negative except documented per HPI. Voice recognition software was used to help create this chart Allergies and Home Medications Allergies Coded Allergies: levofloxacin (Verified Allergy, Intermediate, RASH, 04/14/19) Sulfa (Sulfonamide Antibiotics) (Verified Allergy, Mild, 04/14/19) nitrofurantoin (Unverified Allergy, Mild, 04/14/19) adhesive (Verified Allergy, Unknown, 04/14/19) iodine (Verified Allergy, Unknown, 04/14/19) Patient Home Medication List Home Medication List Reviewed: Yes Alprazolam (Alprazolam) 1 Mg Tablet, 1 MG PO HS, (Reported) Entered as Reported by: DORIS GARCIA on 04/15/19 0840 Ascorbic Acid/Multivit-Min (Emergen-C 1,000 mg Variety Pk) 1,000 Mg Effpowdpkt, 1,000 MG PO DAILY, (Reported) Entered as Reported by: DORIS GARCIA on 04/15/19 0840 Benzonatate (Benzonatate) 100 Mg Capsule, 100-200 MG PO Q8H, (Reported) Entered as Reported by: DORIS GARCIA on 04/15/19 08 Calcium Carbonate (Tums) 300 Mg Tab.chew, 600-900 MG PO PRN PRN for HEARTBURN, (Reported) Entered as Reported by: DORIS GARCIA on 04/15/19 08 Ciprofloxacin HCl (Ciprofloxacin HCl) 500 Mg Tablet, 500 MG PO BID, (Reported) Entered as Reported by: DORIS GARCIA on 04/15/19 08 Ciprofloxacin HCl (Cipro) 500 Mg Tablet, 500 MG PO BID Prescribed by: MARQUEZ MESA on 06/21/222148 Ciprofloxacin HCl (Cipro) 500 Mg Tablet, 500 MG PO BID Prescribed by: MARQUEZ MESA on 06/21/222156 Cyclosporine (Cyclosporine) 100 Mg Capsule, 100 MG PO HS, (Reported) Entered as Reported by: DORIS GARCIA on 04/15/19 08 Docusate Sodium (Docusate Sodium) 100 Mg Tablet, 200 MG PO BID PRN for CONSTIPATION-1ST LINE, (Reported) Entered as Reported by: DORIS GARCIA on 04/15/19 08 Estradiol (Estradiol) 42.5 Gm Cream.appl, GM VG 3XWEEKLY, (Reported) Entered as Reported by: DORIS GARCIA on 04/15/19 08 Galcanezumab-Gnlm (Emgality) 120 Mg/1 Ml Pen.injctr, 120 MG SC MONTHLY, (Reported) Entered as Reported by: DORIS GARCIA on 04/15/19 08 Hydrocodone/Acetaminophen ([place] 7.5-325 Tablet) 1 Each Tablet, 1 TAB PO Q8H PRN for PAIN-MODERATE (5-7), (Reported) Entered as Reported by: DORIS GARCIA on 04/15/19839 Loteprednol Etabonate (Alrex) 5 Ml Drops.susp, 1 DROP OD TID, (Reported) Entered as Reported by: DORIS GARCIA on 04/15/19839 Multivit-Min/Folic Acid/Vit K1 (Multi For Her 50 Plus Softgel) 1 Each Capsule, 2 EACH PO DAILY, (Reported) Entered as Reported by: DORIS GARCIA on 04/15/19 08 [place]-3/Dha/Epa/Fish Oil (Fish Oil 1,000 mg Softgel) 1 Each Capsule, 1 EACH PO TID, (Reported) Entered as Reported by: DORIS GARCIA on 04/15/19839 Phenazopyridine HCl (Azo Standard) 95 Mg Tablet, 95 MG PO PRN PRN for URINARY PAIN, (Reported) Entered as Reported by: DORIS GARCIA on 04/15/19839 Promethazine HCl (Promethazine Suppository) 12.5 Mg Supp.rect, 12.5 MG RC Q6H PRN for NAUSEA/VOMITING-2ND LINE, (Reported) Entered as Reported by: DORIS GARCIA on 04/15/19839 Promethazine HCl (Promethazine Tablet) 25 Mg Tablet, 25 MG PO Q8H PRN for NAUSEA/VOMITING-2ND LINE, (Reported) Entered as Reported by: DORIS GARCIA on 04/15/19839 Pseudoephedrine HCl (Sudogest) 60 Mg Tablet, 60 MG PO Q6H PRN for CONGESTION, (Reported) Entered as Reported by: DORIS GARCIA on 04/15/19839 Topiramate (Topiramate) 100 Mg Tablet, 100 MG PO BID, (Reported) Entered as Reported by: DORIS GARCIA on 04/15/19839 Review of Systems Review of Systems Constitutional: see HPI Past Zxmtrku-Ghzhsp-Mtfflz Hx Patient Social History Tobacco Use?: No Substance use?: No Alcohol Use?: No Immunizations Up To Date Tetanus Booster (TDap): Unknown Influenza Vaccine Up-to-Date: No; Not Current Seasonal Allergies Seasonal Allergies: No Past Medical History Surgery/Hospitalization HX: Frequent UTIs, PT HAS RECENTLY CORNEAL TRANSPLANT W K-PRO L EYE AND STEM CELL IN R EYE. HYST, GALLBLADDER, APPY. C-SECTIONS. 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 Physical Exam Vital Signs Vital Signs - First Documented 06/27/22 07:55 Pulse 72 Resp 16 B/P (MAP) 136/76 (96) Pulse Ox 93 Capillary Refill : Less Than 3 Seconds Height, Weight, BMI Height: 5'1.00" Weight: 116lbs. 0oz. 52.485805vu; 21.00 BMI Method:Actual General Appearance: WD/WN, no apparent distress HEENT: normal ENT inspection, TMs normal, pharynx normal Neck: non-tender, supple Cardiovascular: regular rate, rhythm, no murmur Respiratory: chest non-tender, lungs clear, normal breath sounds, no respiratory distress Gastrointestinal: normal bowel sounds, soft, no organomegaly, other (Tenderness palpation of suprapubic region with voluntary guarding.) Back: CVA tenderness (R) Extremities: normal range of motion, non-tender, normal inspection, no pedal edema Neurologic/Psychiatric: alert, oriented x 3 Skin: normal color, warm/dry Progress/Results/Core Measures Suspected Sepsis SIRS Temperature: Pulse: 72 Respiratory Rate: 16 Laboratory Tests 06/27/22 08:20: White Blood Count 6.7 Blood Pressure 136 /76 Mean: 96 Laboratory Tests 06/27/22 08:20: Creatinine 0.76, Platelet Count 321, Total Bilirubin 0.7 Results/Orders Lab Results Laboratory Tests Test 06/27/22 08:00 06/27/22 08:20 Range/Units Urine Color ORANGE Urine Clarity CLEAR Urine pH 6.5 5-9 Urine Specific [place] 1.015 L 1.016-1.022 Urine Protein 3+ H NEGATIVE Urine Glucose (UA) 1+ H NEGATIVE Urine Ketones 1+ H NEGATIVE Urine Nitrite POSITIVE H NEGATIVE Urine Bilirubin NEGATIVE NEGATIVE Urine Urobilinogen >=8.0 < = 1.0 MG/DL Urine Leukocyte Esterase 1+ H NEGATIVE Urine RBC (Auto) NEGATIVE NEGATIVE Urine RBC RARE /HPF Urine WBC 10-25 H /HPF Urine Squamous Epithelial Cells 25-50 H /HPF Urine Crystals NONE /LPF Urine Bacteria LARGE H /HPF Urine Casts PRESENT /LPF Urine Granular Casts 2-5 H /LPF Urine Mucus NEGATIVE /LPF Urine Culture Indicated YES White Blood Count 6.7 4.3-11.0 10^3/uL Red Blood Count 3.35 L 3.80-5.11 10^6/uL Hemoglobin 11.8 11.5-16.0 g/dL Hematocrit 35 35-52 % Mean Corpuscular Volume 105 H 80-99 fL Mean Corpuscular Hemoglobin 35 H 25-34 pg Mean Corpuscular Hemoglobin Concent 33 32-36 g/dL Red Cell Distribution Width 12.4 10.0-14.5 % Platelet Count 321 130-400 10^3/uL Mean Platelet Volume 11.7 9.0-12.2 fL Immature Granulocyte % (Auto) 0 % Neutrophils (%) (Auto) 63 42-75 % Lymphocytes (%) (Auto) 27 12-44 % Monocytes (%) (Auto) 8 0-12 % Eosinophils (%) (Auto) 1 0-10 % Basophils (%) (Auto) 0 0-10 % Neutrophils # (Auto) 4.2 1.8-7.8 10^3/uL Lymphocytes # (Auto) 1.8 1.0-4.0 10^3/uL Monocytes # (Auto) 0.6 0.0-1.0 10^3/uL Eosinophils # (Auto) 0.1 0.0-0.3 10^3/uL Basophils # (Auto) 0.0 0.0-0.1 10^3/uL Immature Granulocyte # (Auto) 0.0 0.0-0.1 10^3/uL Sodium Level 139 135-145 MMOL/L Potassium Level 3.7 3.6-5.0 MMOL/L Chloride Level 110 H 98-107 MMOL/L Carbon Dioxide Level 20 L 21-32 MMOL/L Anion Gap 9 5-14 MMOL/L Blood Urea Nitrogen 14 7-18 MG/DL Creatinine 0.76 0.60-1.30 MG/DL Estimat Glomerular Filtration Rate 93 BUN/Creatinine Ratio 18 Glucose Level 97 70-105 MG/DL Calcium Level 9.3 8.5-10.1 MG/DL Corrected Calcium 9.3 8.5-10.1 MG/DL Total Bilirubin 0.7 0.1-1.0 MG/DL Aspartate Amino Transf (AST/SGOT) 25 5-34 U/L Alanine Aminotransferase (ALT/SGPT) 23 0-55 U/L Alkaline Phosphatase 66 40-136 U/L Total Protein 7.2 6.4-8.2 GM/DL Albumin 4.0 3.2-4.5 GM/DL Lipase 39 8-78 U/L Smear Scan YES My Orders Orders - BERNARD BELLAMY DO Comprehensive Metabolic Panel (06/27/22 08:03) Lipase (06/27/22 08:03) Ua Culture If Indicated (06/27/22 08:03) Cbc With Automated Diff (06/27/22 08:03) Fentanyl Inj (Sublimaze Injection) (06/27/22 08:15) Ct Abd/Pelvis Wo(Kidney Stone) (06/27/22 08:03) Urine Culture (06/27/22 08:00) Morphine Injection (Morphine Injection (06/27/22 09:00) Ketorolac Injection (Toradol Injection) (06/27/22 09:00) Glycopyrrolate Injection (Robinul Inject (06/27/22 09:00) Medications Given in ED Current Medications Medications Dose Ordered Sig/Mor Route Start Time Stop Time Status Last Admin Dose Admin Fentanyl Citrate 50 mcg ONCE ONCE IVP 06/27/22 08:15 06/27/22 08:16 DC 06/27/22 08:21 50 MCG Glycopyrrolate 0.4 mg ONCE ONCE IM 06/27/22 09:00 06/27/22 09:02 DC 06/27/22 09:16 0.4 MG Ketorolac Tromethamine 15 mg ONCE ONCE IVP 06/27/22 09:00 06/27/22 09:02 DC 06/27/22 09:08 15 MG Vital Signs/I&O 06/27/22 07:55 Pulse 72 Resp 16 B/P (MAP) 136/76 (96) Pulse Ox 93 Capillary Refill : Less Than 3 Seconds Blood Pressure Mean: 96 Departure Communication (Admissions) The patient's pain is down from a 7 or 8 to a 3 out of 10. She states it is manageable and request to try pain management at home at this time with outpatient urology follow-up. She has been referred to Dr. Schaeffer in the past so she will call his office for scheduled follow-up. She has no evidence of UTI at this time. She will continue her last day of antibiotics but does not need antibiotics thereafter. She be discharged home with pain medicine and urology follow-up. Impression Primary Impression: Ureterolithiasis Additional Impression: Renal colic on right side Disposition: 01 HOME, SELF-CARE Condition: Stable Departure-Patient Inst. Referrals: DORIS QUINTANILLA DO (PCP/Family) Primary Care Physician Patient Instructions: Kidney Stone, Adult ED Add. Discharge Instructions: Take the ketorolac as needed as prescribed. Take the oxycodone as needed as prescribed. This may make you drowsy. Do not take your hydrocodone while taking this. You may want to use stool softeners as it can cause constipation. Increase your fluids at home. Call Dr. Schaeffer's office to schedule follow up. Return to the emergency department for any pain that is not controlled with the provided medications, fevers or if your symptoms change in any way concerning to you. All discharge instructions reviewed with patient and/or family. Voiced understanding. Scripts Oxycodone HCl/Acetaminophen (Oxycodon-Acetaminophen 7.5-325) 7.5 Mg-325 Mg Tablet 1 EACH PO Q6H PRN for PAIN-MODERATE MDD 4 for 3 Days, #12 TAB Prov: BERNARD BELLAMY DO 06/27/22 Ketorolac Tromethamine (Ketorolac Tromethamine) 10 Mg Tablet 10 MG PO TID for Pain for 3 Days, #9 TAB Prov: BERNARD BELLAMY DO 06/27/22 BERNARD BELLAMY DO June 27, 2022 08:51
[2022-06-27 08:56] LABS: POTASSIUM 3.7 MMOL/L (3.6-5.0)
--- NOTE | 2022-06-27 08:56 | Diagnostic Imaging Report ---
PROCEDURE: CT urinary tract, rule out kidney stone. TECHNIQUE: Multiple contiguous axial images were obtained through the abdomen and pelvis without the use of intravenous contrast. Auto Exposure Controls were utilized during the CT exam to meet ALARA standards for radiation dose reduction. INDICATION: Right flank pain. FINDINGS: There is some atelectasis at the left lung base. The liver appears normal. The gallbladder is surgically absent. The pancreas appears grossly normal. The spleen appears to be partially resected with several sol in the renal hilum. The adrenals are normal. There is a 3 mm calculus in a dorsal interpolar calyx of the left kidney. There is hydronephrosis of the right kidney. There is a 2 mm calculus in a ventral interpolar calyx of the right kidney. There is a 6 mm calculus in the distal right ureter near the ureterovesical junction causing obstruction. The uterus is surgically absent. There is no evidence for appendicitis. The small bowel is not dilated. There is a moderate amount of stool in the colon. IMPRESSION: Bilateral nephrolithiasis. Obstructing calculus in the distal right ureter causing hydronephrosis of the right kidney. Dictated by: Dictated on workstation # [id number]
[2022-06-27 08:58] LABS: CALCIUM 9.3 MG/DL (8.5-10.1)
[2022-06-27 08:59] LABS: TOTAL PROTEIN 7.2 GM/DL (6.4-8.2)
[2022-06-27] MEDS ORDERED: KETOROLAC 15 MG/ML VIAL IVP ONE (09:00)
[2022-06-27] MEDS ORDERED: morphine INJ 10 MG/ML 1ML (SYR OR VIAL) IVP STA (09:00)
[2022-06-27] MEDS ORDERED: GLYCOPYRROLATE 0.2 MG/ML (ROBINUL) 2 ML VIAL IM ONE (09:00)
[2022-06-27 09:01] LABS: BILIRUBIN,TOTAL 0.7 MG/DL (0.1-1.0)
[2022-06-27 09:02] LABS: CREATININE SERUM 0.76 MG/DL (0.60-1.30)
[2022-06-27] MEDS ORDERED: OXYC1TAB15 PO (09:37)
[2022-06-27] MEDS ORDERED: KETO10TA PO (09:37)
[2022-06-27 10:02] VITALS: BP 107/61
== END 2022-06-27 10:03 | disposition home or self-care (01) ==
LOC: EDUNIT# 07:56 → ER 07:58
DX: N20.1 Calculus of ureter (principal); N23 Unspecified renal colic; Z79.899 Other long term (current) drug therapy; Z90.49 Acquired absence of other specified parts of digestive tract
CPT/HCPCS: 36415; 74176; 80053; 81000; 83690; 85025; 87088

== ENCOUNTER 2022-10-19 21:47 | Emergency (ER) | payer MEDICARE, OTHER ==
[~2022-10-19] VITALS: Ht 154.9 cm; Wt 54.5 kg
[~2022-10-19 21:47] MED LIST changes: +KETO10TA PO; +OXYC1TAB15 PO
--- NOTE | 2022-10-19 22:17 | ED General ---
General Chief Complaint: General Problems/Pain Stated Complaint: DONT FEEL WELL/SORE THROAT History of Present Illness Date Seen by Provider: Oct 19, 2022 Time Seen by Provider: 22:02 Initial Comments 57 year old female with autoimmune disorder and chronic eye issues. She complains of sore throat, myalgias and fever. However she has not checked her temperature. She is afebrile on arrival here, she had ibuprofen approximately 30 minutes ago. Since her throat started hurting this morning, she began taking Augmentin. Reports her PCP wanted her seen in the ED and to have a strep test. Reports she is eating and drinking with no problems, denies nausea or vomiting. She takes acyclovir and doxycycline daily for her eyes. She wears a shaded ski google/mask for her eyes. Sees Maintenance Person in . Denies eye complaints tonight. History of corneal transplant for recurrent ulcerations. Timing/Duration: 12-24 Hours Severity: Moderate Associated Systoms: No Chest Pain, No Cough, No Diaphoresis, No Fever/Chills, No Headaches, No Loss of Appetite; Malaise; No Nausea/Vomiting, No Rash, No Seizure, No Shortness of Air, No Syncope, No Weakness; Other (sore throat) Allergies and Home Medications Allergies Coded Allergies: levofloxacin (Verified Allergy, Intermediate, RASH, 04/14/19) Sulfa (Sulfonamide Antibiotics) (Verified Allergy, Mild, 04/14/19) nitrofurantoin (Unverified Allergy, Mild, 04/14/19) adhesive (Verified Allergy, Unknown, 04/14/19) iodine (Verified Allergy, Unknown, 04/14/19) Patient Home Medication List Home Medication List Reviewed: Yes Alprazolam (Alprazolam) 1 Mg Tablet, 1 MG PO HS, (Reported) Entered as Reported by: DORIS AGRCIA on 04/15/19 0840 Ascorbic Acid/Multivit-Min (Emergen-C 1,000 mg Variety Pk) 1,000 Mg Effpowdpkt, 1,000 MG PO DAILY, (Reported) Entered as Reported by: DORIS GARCIA on 04/15/19 0840 Benzonatate (Benzonatate) 100 Mg Capsule, 100-200 MG PO Q8H, (Reported) Entered as Reported by: DORIS GARCIA on 04/15/19 0840 Calcium Carbonate (Tums) 300 Mg Tab.chew, 600-900 MG PO PRN PRN for HEARTBURN, (Reported) Entered as Reported by: DORIS GARCIA on 04/15/19 0842 Ciprofloxacin HCl (Ciprofloxacin HCl) 500 Mg Tablet, 500 MG PO BID, (Reported) Entered as Reported by: DORIS GARCIA on 04/15/19 0840 Ciprofloxacin HCl (Cipro) 500 Mg Tablet, 500 MG PO BID Prescribed by: MARQUEZ MESA on 06/21/222148 Ciprofloxacin HCl (Cipro) 500 Mg Tablet, 500 MG PO BID Prescribed by: MARQUEZ MESA on 06/21/222156 Cyclosporine (Cyclosporine) 100 Mg Capsule, 100 MG PO HS, (Reported) Entered as Reported by: DORIS GARCIA on 04/15/19 0840 Docusate Sodium (Docusate Sodium) 100 Mg Tablet, 200 MG PO BID PRN for CONSTIPATION-1ST LINE, (Reported) Entered as Reported by: DORIS GARCIA on 04/15/19 0852 Estradiol (Estradiol) 42.5 Gm Cream.appl, GM VG 3XWEEKLY, (Reported) Entered as Reported by: DORIS GARCIA on 04/15/19 0840 Galcanezumab-Gnlm (Emgality) 120 Mg/1 Ml Pen.injctr, 120 MG SC MONTHLY, (Reported) Entered as Reported by: DORIS GARCIA on 04/15/19 0840 Hydrocodone/Acetaminophen ([place] 7.5-325 Tablet) 1 Each Tablet, 1 TAB PO Q8H PRN for PAIN-MODERATE (5-7), (Reported) Entered as Reported by: DORIS GARCIA on 04/15/19 0840 Ketorolac Tromethamine (Ketorolac Tromethamine) 10 Mg Tablet, 10 MG PO TID Prescribed by: BERNARD BELLAMY MD on 06/27/22 0937 Loteprednol Etabonate (Alrex) 5 Ml Drops.susp, 1 DROP OD TID, (Reported) Entered as Reported by: DORIS GARCIA on 04/15/19 0840 Multivit-Min/Folic Acid/Vit K1 (Multi For Her 50 Plus Softgel) 1 Each Capsule, 2 EACH PO DAILY, (Reported) Entered as Reported by: DORIS GARCIA on 04/15/19 08 [place]-3/Dha/Epa/Fish Oil (Fish Oil 1,000 mg Softgel) 1 Each Capsule, 1 EACH PO TID, (Reported) Entered as Reported by: DORIS GARCIA on 04/15/19 08 Oxycodone HCl/Acetaminophen (Oxycodon-Acetaminophen 7.5-325) 7.5 Mg-325 Mg Tablet, 1 EACH PO Q6H PRN for PAIN-MODERATE Prescribed by: BERNARD BELLAMY MD on 06/27/22 0937 Phenazopyridine HCl (Azo Standard) 95 Mg Tablet, 95 MG PO PRN PRN for URINARY PAIN, (Reported) Entered as Reported by: DORIS GARCIA on 04/15/19 08 Promethazine HCl (Promethazine Suppository) 12.5 Mg Supp.rect, 12.5 MG RC Q6H PRN for NAUSEA/VOMITING-2ND LINE, (Reported) Entered as Reported by: DORIS GARCIA on 04/15/19 08 Promethazine HCl (Promethazine Tablet) 25 Mg Tablet, 25 MG PO Q8H PRN for NAUSEA/VOMITING-2ND LINE, (Reported) Entered as Reported by: DORIS GARCIA on 04/15/19 08 Pseudoephedrine HCl (Sudogest) 60 Mg Tablet, 60 MG PO Q6H PRN for CONGESTION, (Reported) Entered as Reported by: DORIS GARCIA on 04/15/19 08 Topiramate (Topiramate) 100 Mg Tablet, 100 MG PO BID, (Reported) Entered as Reported by: DORIS GARCIA on 04/15/19839 Review of Systems Review of Systems Constitutional: no symptoms reported, see HPI; No fever, No malaise EENTM: throat pain, throat swelling; No nose congestion, No nose pain Respiratory: no symptoms reported, see HPI; No cough, No dyspnea on exertion, No short of breath Gastrointestinal: no symptoms reported, see HPI; No diarrhea, No nausea, No vomiting Genitourinary: no symptoms reported, see HPI All Other Systems Reviewed Negative Unless Noted: Yes Past Hwqdehy-Kyvvue-Zklsvk Hx Immunizations Up To Date Tetanus Booster (TDap): Unknown Seasonal Allergies Seasonal Allergies: No Past Medical History Surgery/Hospitalization HX: Frequent UTIs, PT HAS RECENTLY CORNEAL TRANSPLANT W K-PRO L EYE AND STEM CELL IN R EYE. HYST, GALLBLADDER, APPY. C-SECTIONS. 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 Physical Exam Vital Signs Vital Signs - First Documented 10/19/22 21:56 Temp 37.2 Pulse 66 Resp 14 B/P (MAP) 126/77 (93) O2 Delivery Room Air Capillary Refill : Height, Weight, BMI Height: 5'1.00" Weight: 116lbs. 0oz. 52.604960oj; 21.00 BMI Method:Actual General Appearance: No Apparent Distress, WD/WN HEENT: TMs Normal, Moist Mucous Membranes; No Tonsillar Exudate; Tonsillar Enlargement (right > left) Neck: Full Range of Motion, Normal Inspection, Non Tender, Supple Respiratory: Chest Non Tender, Lungs Clear, Normal Breath Sounds Cardiovascular: Regular Rate, Rhythm, No Edema, No Murmur, Normal Peripheral Pulses Gastrointestinal: Normal Bowel Sounds, Non Tender, Soft Neurologic/Psychiatric: Alert, Oriented x3, No Motor/Sensory Deficits, Normal Mood/Affect Skin: Normal Color, Warm/Dry Progress/Results/Core Measures Suspected Sepsis SIRS Temperature: Pulse: Respiratory Rate: Blood Pressure / Mean: Results/Orders Lab Results Laboratory Tests Test 10/19/22 21:59 10/19/22 22:02 Range/Units Influenza Type A (RT-PCR) Not Detected Not Detecte Influenza Type B (RT-PCR) Not Detected Not Detecte SARS-CoV-2 RNA (RT-PCR) Not Detected Not Detecte Group A Streptococcus Screen Not Detected NotDetected My Orders Orders - SHAYY QUIÑONEZ Rapid Strep A Screen (10/19/22 22:10) Influenza A And B By Pcr (10/19/22 22:10) Covid 19 Inhouse Test (10/19/22 22:10) Vital Signs/I&O 10/19/22 21:56 Temp 37.2 Pulse 66 Resp 14 B/P (MAP) 126/77 (93) O2 Delivery Room Air Capillary Refill : Departure Impression Primary Impression: Sore throat Additional Impression: Viral pharyngitis Disposition: HOME, SELF-CARE Condition: Improved Departure-Patient Inst. Decision time for Depature: 22:15 Referrals: DORIS QUINTANILLA DO (PCP/Family) Primary Care Physician Patient Instructions: Sore Throat, Adult (DC) Add. Discharge Instructions: Warm salt water gargles every 2 hours, while awake. Increase fluid intake, 16 oz every two hours while awake. Continue taking the doxycycline and acyclovir. Stop taking the Augmentin. Take Prednisone as prescribed. Alternate between Tylenol 650 mg and ibuprofen 600 mg every 4 hours for pain or fever. Follow-up with your primary care provider if symptoms or not improving or worsen. Return to the emergency department for new, urgent healthcare problems. All discharge instructions reviewed with patient and/or family. Voiced understeduin henson. Scripts Prednisone (Prednisone) 20 Mg Tab 40 MG PO DAILY, #6 TAB 0 Refills Prov: SHAYY QUIÑONEZ 10/19/22 SHAYY QUIÑONEZ Oct 19, 2022 22:17
[2022-10-19] MEDS ORDERED: PRD20T PO (23:08)
[2022-10-19 23:13] VITALS: BP 112/62
== END 2022-10-19 23:13 | disposition home or self-care (01) ==
LOC: EDUNIT# 21:47 → ER 21:50
DX: J02.8 Acute pharyngitis due to other specified organisms (principal); B97.89 Other viral agents as the cause of diseases classified elsewhere; Z28.310 Unvaccinated for COVID-19; Z20.822 Contact with and (suspected) exposure to COVID-19
CPT/HCPCS: 87430; 87636; 99283

== ENCOUNTER 2022-12-25 10:55 | Emergency (ER) | payer MEDICARE, OTHER ==
[~2022-12-25] VITALS: Ht 154.9 cm; Wt 58.9 kg
[~2022-12-25 10:55] MED LIST changes: +PRD20T PO
[2022-12-25] MEDS ORDERED: METH4TAB10 PO (11:32)
--- NOTE | 2022-12-25 11:33 | ED Integumentary General ---
General Chief Complaint: Allergic Reaction Stated Complaint: ALERGIC REACTION Nursing Triage Note: PT AMB TO RM 7 WITH CC OF ALLERGIC REACTION AFTER GETTING STUNG OR BIT BY AN UNKNOWN INSECT 2 DAYS AGO. PT STATES THAT HER RIGHT FORARM IS RED AND SWOLLEN. PATIENT RATES PAIN 8/10. Source: patient Exam Limitations: no limitations (LUZ ELENA MUJICA APRN) History of Present Illness Date Seen by Provider: Dec 25, 2022 Time Seen by Provider: 11:18 Initial Comments 57-year-old female presents to the ER with complaint of an allergic reaction after a possible bug bite or sting. She states that she first noticed it 2 days ago, and the area has gotten larger. She is complaining of a burning pain and itching. She also feels like there is a knot under the skin. She reports she has been taking Benadryl shqb-[id number]-vwirjqk and using hydrocortisone cream and Benadryl cream. She denies any fevers. (LUZ ELENA MUJICA APRN) Allergies and Home Medications Allergies Coded Allergies: levofloxacin (Verified Allergy, Intermediate, RASH, 04/14/19) Sulfa (Sulfonamide Antibiotics) (Verified Allergy, Mild, 04/14/19) nitrofurantoin (Unverified Allergy, Mild, 04/14/19) adhesive (Verified Allergy, Unknown, 04/14/19) iodine (Verified Allergy, Unknown, 04/14/19) Patient Home Medication List Home Medication List Reviewed: Yes (LUZ ELENA MUJICA APRN) Alprazolam (Alprazolam) 1 Mg Tablet, 1 MG PO HS, (Reported) Entered as Reported by: DORIS GARCIA on 04/15/19 0840 Ascorbic Acid/Multivit-Min (Emergen-C 1,000 mg Variety Pk) 1,000 Mg Effpowdpkt, 1,000 MG PO DAILY, (Reported) Entered as Reported by: DORIS GARCIA on 04/15/19 0840 Benzonatate (Benzonatate) 100 Mg Capsule, 100-200 MG PO Q8H, (Reported) Entered as Reported by: DORIS GARCIA on 04/15/19 0840 Calcium Carbonate (Tums) 300 Mg Tab.chew, 600-900 MG PO PRN PRN for HEARTBURN, (Reported) Entered as Reported by: DORIS GARCIA on 04/15/19 0842 Ciprofloxacin HCl (Ciprofloxacin HCl) 500 Mg Tablet, 500 MG PO BID, (Reported) Entered as Reported by: DORIS GARCIA on 04/15/19 0840 Ciprofloxacin HCl (Cipro) 500 Mg Tablet, 500 MG PO BID Prescribed by: MARQUEZ MESA on 06/21/222148 Ciprofloxacin HCl (Cipro) 500 Mg Tablet, 500 MG PO BID Prescribed by: MARQUEZ MESA on 06/21/222156 Cyclosporine (Cyclosporine) 100 Mg Capsule, 100 MG PO HS, (Reported) Entered as Reported by: DORIS GARCIA on 04/15/19 0840 Docusate Sodium (Docusate Sodium) 100 Mg Tablet, 200 MG PO BID PRN for CONSTIPA TION-1ST LINE, (Reported) Entered as Reported by: DORIS GARCIA on 04/15/19 0852 Estradiol (Estradiol) 42.5 Gm Cream.appl, GM VG 3XWEEKLY, (Reported) Entered as Reported by: DORIS GARCIA on 04/15/19 08 Galcanezumab-Gnlm (Emgality) 120 Mg/1 Ml Pen.injctr, 120 MG SC MONTHLY, (Reported) Entered as Reported by: DORIS GARCIA on 04/15/19 0840 Hydrocodone/Acetaminophen ([place] 7.5-325 Tablet) 1 Each Tablet, 1 TAB PO Q8H PRN for PAIN-MODERATE (5-7), (Reported) Entered as Reported by: DORIS GARCIA on 04/15/19 08 Ketorolac Tromethamine (Ketorolac Tromethamine) 10 Mg Tablet, 10 MG PO TID Prescribed by: BERNADR BELLAMY MD on 06/27/22 0937 Loteprednol Etabonate (Alrex) 5 Ml Drops.susp, 1 DROP OD TID, (Reported) Entered as Reported by: DORIS GARCIA on 04/15/19 0840 Methylprednisolone (Methylprednisolone Dose Pack) 4 Mg Tab.ds.pk, 4 MG PO UD Prescribed by: Luz Elena Villagran on 12/25/22 1132 Multivit-Min/Folic Acid/Vit K1 (Multi For Her 50 Plus Softgel) 1 Each Capsule, 2 EACH PO DAILY, (Reported) Entered as Reported by: DORIS GARCIA on 04/15/19 08 [place]-3/Dha/Epa/Fish Oil (Fish Oil 1,000 mg Softgel) 1 Each Capsule, 1 EACH PO TID, (Reported) Entered as Reported by: DORIS GARCIA on 04/15/19 08 Oxycodone HCl/Acetaminophen (Oxycodon-Acetaminophen 7.5-325) 7.5 Mg-325 Mg Tablet, 1 EACH PO Q6H PRN for PAIN-MODERATE Prescribed by: BERNARD BELLAMY MD on 06/27/22 0937 Phenazopyridine HCl (Azo Standard) 95 Mg Tablet, 95 MG PO PRN PRN for URINARY P AIN, (Reported) Entered as Reported by: DORIS GARCIA on 04/15/19 08 Prednisone (Prednisone) 20 Mg Tab, 40 MG PO DAILY Prescribed by: SHAYY QUIÑONEZ on 10/19/22 2308 Promethazine HCl (Promethazine Suppository) 12.5 Mg Supp.rect, 12.5 MG RC Q6H PRN for NAUSEA/VOMITING-2ND LINE, (Reported) Entered as Reported by: DORIS GARCIA on 04/15/19 08 Promethazine HCl (Promethazine Tablet) 25 Mg Tablet, 25 MG PO Q8H PRN for NAUSEA/VOMITING-2ND LINE, (Reported) Entered as Reported by: DORIS GARCIA on 04/15/19 08 Pseudoephedrine HCl (Sudogest) 60 Mg Tablet, 60 MG PO Q6H PRN for CONGESTION, (Reported) Entered as Reported by: DORIS GARCIA on 04/15/19839 Topiramate (Topiramate) 100 Mg Tablet, 100 MG PO BID, (Reported) Entered as Reported by: DORIS GARCIA on 04/15/19 08 Review of Systems Review of Systems Constitutional: see HPI (LUZ ELENA MUJICA APRN) Past Gdkczlo-Aecisu-Xtyesz Hx Patient Social History Tobacco Use?: No Substance use?: No Alcohol Use?: No (LUZ ELENA MUJICA APRN) Immunizations Up To Date Tetanus Booster (TDap): Unknown (LUZ ELENA MUJICA APRN) Seasonal Allergies Seasonal Allergies: No (LUZ ELENA MUJICA APRN) Past Medical History Surgery/Hospitalization HX: migraine [facility] and autoimmune disease Surgeries: Yes (spleenectomy, d&c) Section, Eye Surgery, Gallbladder, Hysterectomy, Oophorectomy, Orthopedic Respiratory: Yes Asthma Cardiac: No Neurological: Yes Headaches /Migraines, Neuropathy Reproductive Disorders: No 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 History: Hysterectomy Sexually Transmitted Disease: No Genitourinary: Yes UTI-Chronic Gastrointestinal: No Musculoskeletal: Yes Arthritis Endocrine: No HEENT: Yes Chronic Eye Infection Loss of Vision: Bilateral Cancer: No Psychosocial: Yes Anxiety Integumentary: No Blood Disorders: Yes (LUZ ELENA MUJICA APRN) Family Medical History Myocardial infarction No Pertinent Family Hx ADDITIONAL PAST MEDICAL HISTORY: -LIMBAL STEM CELL DEFICIENCY OF EYES -CHRONIC LARGE ULCER OF LEFT CORNEAL -BILATERAL EYE BLINDNESS -CHRONIC BILATERAL EYE PAIN -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 (LUZ ELENA MUJICA APRN) Physical Exam Vital Signs Vital Signs - First Documented 12/25/22 12/25/22 11:00 11:38 Temp 36.7 Pulse 81 Resp 18 B/P (MAP) 106/64 (78) Pulse Ox 96 O2 Delivery Room Air (LOUISE MENESES MD) Vital Signs Capillary Refill : (LUZ ELENA MUJICA APRN) General Appearance: WD/WN, no apparent distress Neck: supple, normal inspection Cardiovascular: regular rate, rhythm Respiratory: lungs clear, normal breath sounds, no respiratory distress, no accessory muscle use Extremities: normal range of motion Neurologic/Psychiatric: alert, normal mood/affect Skin: normal color, warm/dry Skin Problem Location: upper extremities (Right medial forearm) Skin Problem Character: erythema, swelling, tenderness (LUZ ELENA MUJICA APRN) Progress/Results/Core Measures Results/Orders Vital Signs/I&O 12/25/22 12/25/22 11:00 11:38 Temp 36.7 Pulse 81 80 Resp 18 B/P (MAP) 106/64 (78) 105/54 Pulse Ox 96 95 O2 Delivery Room Air Room Air (LOUISE MENESES MD) Blood Pressure Mean: 78 Progress Progress Note : Progress Note Patient seen and evaluated, resting comfortably in bed, no acute distress. Based on exam and symptoms, this appears to be a histamine reaction to a bug bite or sting. There is a large area of erythema, with some induration, there is no area of fluctuation suggesting an abscess. Affected area of skin is not warmer than the rest of skin. It does not appear to be infected. Discussed options for treatment with steroid with the patient. Patient reports that she would like to try the steroid. Will discharge with prescription for Medrol Dosepak. Patient instructed to take a 24-hour allergy medication once a day and to continue taking Benadryl as needed for itching. Also instructed patient to continue using hydrocortisone cream. Patient is stable for discharge. Discharge instructions and return precautions provided. (LUZ ELENA MUJICA APRN) Departure Impression Primary Impression: Insect bite or sting Disposition: HOME, SELF-CARE Condition: Stable Departure-Patient Inst. Decision time for Depature: 11:31 (LUZ ELENA MUJICA APRN) Referrals: DORIS QUINTANILLA DO (PCP/Family) Primary Care Physician Patient Instructions: Insect Bites and Stings (DC) Add. Discharge Instructions: Take the Medrol Dosepak as prescribed. Take a 24-hour allergy medication like Kendra, Zyrtec, or Claritin once a day. Take Benadryl as needed for itching. Continue using the hydrocortisone cream. Follow-up with primary care provider if symptoms are not improving. Return for increasing redness, fever, or any other new, concerning, or worsening symptoms. All discharge instructions reviewed with patient and/or family. Voiced understanding. Scripts Methylprednisolone (Methylprednisolone Dose Pack) 4 Mg Tab.ds.pk 4 MG PO UD for 6 Days, #21 PKG 0 Refills PER DOSE PACK INSTRUCTIONS Prov: LUZ ELENA MUJICA APRN 12/25/22 ATTENDING PHYSICIAN NOTE: I was physically present as attending physician in the emergency department during the care of this patient. I discussed this patient and approach to assessment and treatment with Luz Elena Mujica NP. I did not personally interview or examine this patient, and I was not otherwise directly involved in the decision making or delivery of care for this patient. (LOUISE MENESES MD) Copy Copies To 1: DORIS QUINTANILLA BRITTANY R APRN Dec 25, 2022 11:33 LOUISE MENESES MD Dec 28, 2022 06:32
[2022-12-25 11:38] VITALS: BP 105/54
== END 2022-12-25 11:38 | disposition home or self-care (01) ==
LOC: EDUNIT# 10:55 → ER 10:59
DX: S50.861A Insect bite (nonvenomous) of right forearm, initial encounter (principal); W57.XXXA Bitten or stung by nonvenomous insect and other nonvenomous arthropods, initial encounter
CPT/HCPCS: 99281